=== PATIENT | female | born 1940 | race Caucasian/White ===

== ENCOUNTER 2017-02-14 08:14 | Inpatient (IN) | payer MEDICARE ==
[2017-02-14] MEDS ORDERED: Diazepam TAB(*) 5 MG ONE (09:16)
[2017-02-14] MEDS ORDERED: methylPREDNISolone 125 MG* 2 ML VIAL ONE (09:43)
[2017-02-14] MEDS ORDERED: diPHENhydraMINE IV* 50 MG/ML 1 ml VIAL (BENADRYL) ONE (09:43)
[2017-02-14] MEDS ORDERED: Midazolam* 1 MG/ML 10 ML VIAL (10 MG) ONE (10:07)
[2017-02-14] MEDS ORDERED: VERAPAMIL 2.5 MG/ML 4 ML VIAL ONE (10:07)
[2017-02-14] MEDS ORDERED: fentaNYL* 50 MCG/ML 2 ML VIAL (100 MCG VIAL) ONE ×2 (10:07→11:05)
[2017-02-14] MEDS ORDERED: Heparin 2 UNITS/ML IVPREMIX* 3,000 ML IV ONE (10:08)
[2017-02-14] MEDS ORDERED: Heparin(*) 1000 UNIT/ML 10 ML VIAL CATH LAB IV ONE (10:08)
[2017-02-14] MEDS ORDERED: Iodixanol* (CONTRAST) 320 MG/ML 100 ML SDV ONE ×2 (10:08→11:49)
[2017-02-14] MEDS ORDERED: Lidocaine 1% INJ* 10 MG/ML 30 ML SDV ONE (10:08)
[2017-02-14] MEDS ORDERED: nitroGLYCERIN DRIP* 25,000 MCG/250 ML BTL ONE (10:08)
[2017-02-14] MEDS ORDERED: Adenosine* 3 MG/ML VIAL ONE (11:13)
[2017-02-14] MEDS ORDERED: Aspirin Low Dose CHEW TAB* 81 MG ONE (11:39)
[2017-02-14] MEDS ORDERED: Ticagrelor* 90 MG TAB PO ONE ×2 (11:49→11:50)
[2017-02-14] MEDS ORDERED: Nitroglycerin TAB 0.4 MG* 0.4 MG TAB SL PRN ×2 (15:58→16:03)
[2017-02-14] MEDS ORDERED: NS 0.9% 1000 ML* 1,000 ML IV SCH (16:00)
[2017-02-14] MEDS ORDERED: Aspirin EC Low Dose* 81 MG TAB.EC PO SCH (18:00)
[2017-02-14] MEDS ORDERED: Carvedilol TAB* 6.25 MG PO SCH (18:00)
[2017-02-14] MEDS ORDERED: Atorvastatin* 20 MG TAB PO SCH (18:00)
[2017-02-14] MEDS ORDERED: ROSUVASTATIN 10 MG PO SCH (20:12)
[2017-02-14] MEDS: Ticagrelor* 90 MG TAB PO SCH (20:52)
[2017-02-14] MEDS: Diltiazem CD CAP* 120 MG PO SCH (20:52)
[2017-02-14] MEDS ORDERED: INSULIN ASPART 100 UNIT/ML SUBCUT SCH (23:00)
[2017-02-14] MEDS ORDERED: [UNRECOGNIZED DRUG - OTHER] SUBCUT SCH (23:00)
[2017-02-15 05:50] LABS: BUN/Creatinine Ratio 23.6 (8-20); Calcium 8.2 mg/dL (8.6-10.3); EGFR African American 101.8 (>60); EGFR Non-African American 79.2 (>60); Potassium 3.5 mmol/L (3.5-5.0)
[2017-02-15] MEDS ORDERED: Levothyroxine TAB* 137 MCG TAB PO SCH (06:00)
[2017-02-15] MEDS ORDERED: Omeprazole CAP* 20 MG PO SCH (07:30)
[2017-02-15] MEDS: Ticagrelor* 90 MG TAB PO SCH (08:59)
[2017-02-15] MEDS ORDERED: DULoxetine DR CAP* 30 MG CAP.DR PO SCH (09:00)
[2017-02-15] MEDS: Diltiazem CD CAP* 120 MG PO SCH (09:00)
[2017-02-15] MEDS ORDERED: Carvedilol TAB* 6.25 MG PO SCH (09:00)
[2017-02-15] MEDS ORDERED: Valsartan TAB* 40 MG PO SCH (09:00)
[2017-02-15] MEDS ORDERED: Aspirin Low Dose CHEW TAB* 81 MG PO SCH (09:00)
[2017-02-15 11:03] VITALS: BP 156/87
--- NOTE | 2017-02-15 21:39 | DS ---
CC: Dr. Brock; Dr. Canales * DISCHARGE SUMMARY: DATE OF ADMISSION: 02/14/17 DATE OF DISCHARGE: 02/15/17 PRIMARY CARE PHYSICIAN: Dr. Brock. SENIOR J2EE DEVELOPER: Dr. Canales. DISCHARGE DIAGNOSES: 1. Angina pectoris. 2. Morbid obesity. 3. Diabetes type 2. 4. Diastolic chronic congestive heart failure. 5. Hypertension, uncontrolled. 6. Numerous medication allergies including contrast and nickel. 7. Obstructive sleep apnea. CONDITION ON DISCHARGE: Stable. DISCHARGE MEDICATIONS: Unchanged: 1. Cardizem CD 120 mg b.i.d. 2. Crestor 20 mg one-half tablet daily. 3. Diovan 40 mg daily. 4. Protonix 40 mg daily. 5. Carvedilol 6.25 two tabs q.a.m., one q.p.m. 6. Cymbalta 30 mg daily. 7. Synthroid 137 mcg daily. 8. Aspirin 81 mg daily. 9. Insulin pump as before. 10. Nitroglycerin 0.4 sublingual p.r.n. 11. Vitamin D3 New medications to discontinue: Isosorbide, Brilinta 90 mg b.i.d. if her insurance coverage is affordable, otherwise Plavix 75 mg daily. FOLLOWUP: Follow up with Ms. Aimee Dykes at the [facility] office wound check at 1345 hours. ACTIVITY: To avoid right hand use for 2 days. WOUND CARE: Shower only for 3 days. DIET: As before. HISTORY: See the outpatient H and P. DIAGNOSTIC STUDIES/LAB DATA: Electrolytes on 02/10 unremarkable except for random blood sugar of 157. Creatinine 0.87. CBC normal. EKG, left bundle- branch block. HOSPITAL COURSE: She underwent an outpatient diagnostic catheterization for limiting exertional chest discomfort in spite of dual-antianginal therapy, with stress imaging which showed a fixed anterolateral defect, which was described as intermediate, but is actually a low-risk finding. She has had previous coronary artery stenting. Two years ago, she had insignificant RCA restenosis. Comorbidities include morbid obesity and diastolic heart failure. She underwent outpatient catheterization via the right radial approach, was found to have moderate stenosis in the mid RCA which had an abnormal FFR of 0.78 , was therefore stented with a 3 x 16 drug-eluting stent post dilated to 3.25 mm. She also had FFR evaluation of the mid circumflex stenosis which was 0.78, the circumflex is retroflexed at greater than 90 degrees. Attempts at advancing a stent into the proximal circumflex resulted in the guide disengaging twice. Because of the stable coronary artery disease scenario with limiting symptoms on dual-antianginal therapy, revascularization of the RCA, the technical difficulty in stenting the mid circumflex, I did not pursue in revascularizing the circumflex. If she persists with limiting anginal symptoms , she is a candidate for repeat procedure to stent the mid circumflex. In that case I would anticipate using the femoral approach with a Voda left 4 guide for more support and a stiffer wire to negotiate the sharp 90+ degree angle at the proximal circumflex. I stopped her Imdur. She had some shortness of breath with Brilinta initially, probably from the medication side effect, but this is not quite certain. Effient is prohibitively expensive for her, she therefore prefers to go home on Brilinta with the plan of switching her to Plavix if she persists with dyspnea. Postprocedure EKG and BMP were unchanged, there were no complications at the radial access site. On the day of discharge, she is ambulatory and stable. She has persisting systolic hypertension in the 150 to 170 range, which will be addressed as an outpatient. [id number]/[facility] #: [id number] ZULEMA
--- NOTE | 2017-02-16 23:10 | CATH ---
CC: Dr. Brock; Dr. Canales * STENT REPORT: DATE OF PROCEDURE: 02/14/17 - ROOM #ICU-09 PRIMARY CARE PHYSICIAN: Dr. Brock. MEN'S DESIGNER: Dr. Canales. PROCEDURES: Right radial artery access with ultrasound guidance, bilateral selective coronary cineangiography. HISTORY: A 76-year-old morbidly obese woman with prior right coronary artery remote stenting. Catheterization 2 years prior showed no significant obstructive disease. She now is re-referred for catheterization because of progressive limiting exertional angina with occasional rest discomfort, stress imaging with fixed anterolateral defect read as intermediate risk; although by my review, it is low risk, and persisting limiting symptoms in spite of 3 antianginal agents. PROCEDURE ACCESS: Right radial artery sheath 6F Slender with ultrasound guidance. Radial access was technically difficult because of angulation in the right subclavian area resulting in poor guide support for the left coronary artery. MEDICATIONS: 1. Subcu lidocaine. 2. IV Versed. 3. IV fentanyl. 4. Nitroglycerin 200 mcg IA. 5. Radial cocktail with heparin. 6. 3000 units heparin, nitroglycerin 300 mg, verapamil 3 mg, additional heparin 2000 units, 3000 units, 2000 units. 7. IC adenosine bolus for FFR evaluation of RCA and circumflex. HEMODYNAMICS: Initial BP 156/69. FFR RCA utilizing a COMET 0.014 pressure wire and adenosine 100 mcg IC yielded FFR of 0.78. A Synergy 3.0 x 16 mm drug-eluting stent was then deployed in the mid RCA with 11 atmospheres 10 seconds and postdilated with a 3.25 x 15 noncompliant balloon 18 atmospheres 13 seconds. A 6F VL3.5 guide was then utilized with a COMET wire to measure FFR within the circumflex, which has unfavorable anatomy because of retroflexed 100 degree angulation. FFR with 100 mcg of IC adenosine mid circumflex 0.80, 0.78. A 3.5 x 16 mm drug-eluting stent was then advanced toward the mid circumflex, but would not easily traverse the greater than 90 degree angle at the proximal circumflex resulting in disengagement of the guide x2. Because of poor guide support, difficulty with catheter torque control because of subclavian tortuosity, already successful stenting of the RCA and stable coronary artery syndrome without ACS, revascularization attempt of the circumflex was stopped. She will be followed clinically. If she has persisting limiting angina after stenting of the RCA, she will be brought back for a circumflex revascularization. In that case, I anticipate utilizing the femoral approach for greater catheter torque ability, and a VL4 for greater guide support as well as a stiffer wire to traverse the proximal circumflex steep angulation. ANGIOGRAPHY: Injection at the right subclavian shows tortuosity, resulted in poor catheter torque control. Left main: The left main is large, has a distal smooth 40% stenosis. LAD: The LAD is large, extends past the apex, it supplies a moderate diagonal, the LAD has luminal irregularity, but no significant stenosis. Circumflex: The circumflex is large, not dominant, has a very proximal greater than 90-degree retroflexed angulation after which, there is a small marginal followed by an eccentric 60% stenosis, which was evaluated with FFR. The circumflex ends with 2 posterolateral branches. RCA: The RCA is dominant, moderate, has previously placed stents proximally, beyond the stents, there is a 50% to 60% stenosis, which was evaluated with FFR and subsequently stented. Distal RCA has luminal irregularity, a very small PDA and a small posterolateral. After stent deployment RCA, postdilatation with an NC balloon, there is no significant residual stenosis, MAURO-3 flow, no dissection. The circumflex was not stented because of above reasons. CONCLUSION: 1. Two-vessel disease with significant circumflex and mid RCA stenosis by FFR, successful drug-eluting stent placement RCA, the circumflex was not stented, see above. If she requires future circumflex intervention, plan would be femoral approach with a longer Voda guide and a stiffer wire for more support. 2. Successful right radial artery access. [id number]/[facility] #: [id number] [facility] HOSPITALBlanca
== END 2017-02-15 12:00 | disposition home or self-care (01) | DRG 247 ==
LOC: CHICATH 08:14 → ICU 13:19
PROVIDERS: ADMIT Internal Medicine Cardiovascular Disease; ATTEND Internal Medicine Cardiovascular Disease
PROC: B2111ZZ Fluoroscopy of Multiple Coronary Arteries using Low Osmolar Contrast (ICD-10-PCS; 2017-02-14)
PROC: 027034Z Dilation of Coronary Artery, One Artery with Drug-eluting Intraluminal Device, Percutaneous Approach (ICD-10-PCS; principal; 2017-02-14 09:30)
DX: I25.119 Atherosclerotic heart disease of native coronary artery with unspecified angina pectoris (principal); E11.21 Type 2 diabetes mellitus with diabetic nephropathy; I11.0 Hypertensive heart disease with heart failure; E66.01 Morbid (severe) obesity due to excess calories; M48.02 Spinal stenosis, cervical region; I50.32 Chronic diastolic (congestive) heart failure; Z68.41 Body mass index [BMI] 40.0-44.9, adult; I44.7 Left bundle-branch block, unspecified; K21.9 Gastro-esophageal reflux disease without esophagitis; M47.9 Spondylosis, unspecified; G47.30 Sleep apnea, unspecified; Z96.41 Presence of insulin pump (external) (internal); Z96.659 Presence of unspecified artificial knee joint; F41.9 Anxiety disorder, unspecified; E78.00 Pure hypercholesterolemia, unspecified; E78.2 Mixed hyperlipidemia; E03.9 Hypothyroidism, unspecified; M85.88 Other specified disorders of bone density and structure, other site; R94.39 Abnormal result of other cardiovascular function study; R06.02 Shortness of breath; K90.0 Celiac disease; K44.9 Diaphragmatic hernia without obstruction or gangrene; F32.9 Major depressive disorder, single episode, unspecified; Z90.49 Acquired absence of other specified parts of digestive tract; Z90.710 Acquired absence of both cervix and uterus; Z83.3 Family history of diabetes mellitus; Z82.3 Family history of stroke; Z82.61 Family history of arthritis; Z80.8 Family history of malignant neoplasm of other organs or systems; Z82.49 Family history of ischemic heart disease and other diseases of the circulatory system; Z87.891 Personal history of nicotine dependence; Z79.4 Long term (current) use of insulin; Z79.82 Long term (current) use of aspirin; Z79.02 Long term (current) use of antithrombotics/antiplatelets; Z88.1 Allergy status to other antibiotic agents; Z88.8 Allergy status to other drugs, medicaments and biological substances; Z91.041 Radiographic dye allergy status; Z91.048 Other nonmedicinal substance allergy status; Z95.5 Presence of coronary angioplasty implant and graft
CPT/HCPCS: 36415; 80048; 82947; 87641; 93005; 93454; 94760; 99156; 99157; A9270-GY; C1725; C1876; C1887; C9600-RC; J0153; J1200; J1644; J2250; J2930; J3010

== ENCOUNTER 2017-06-26 16:17 | Emergency (ER) | payer MEDICARE ==
--- OUTSIDE RECORDS SUMMARY | 2017-06-26 16:35 | XMS REPORT ---
:1940 External Reference #:[id number] Author Organization [facility] Address [address] [address] Phone [phone] Care Team Providers Name Role Phone Clarissa Brock MD Primary Care Physician Unavailable Payers Type Date Identification Numbers Payment Provider Subscriber Medicare Primary Effective: Policy Number: Medicare Chan Chandler 2008 [id number] PayID: [id number] [address] [place] [address] Medigap Part B Effective: Policy Number: [facility] Chan Martinez 2014 [id number] [facility] Ramesh PayID: [id number] [address] [place] [address] Medigap Part B Expires: 2014 Policy Number: [employer] Chan Chandler [id number] PayID: [id number] [address] [address] [place] [address] Advance Directives Type Date Description Status Comment Other Directive 03/12/2015 Health Care Proxy Current and Verified Other Directive 10/10/2013 Health Care Proxy Current and Verified Problems Date Description Provider Status Onset: 08/19/2011 Benign essential hypertension Clarissa Brock M.D. Active Onset: 08/19/2011 Coronary atherosclerosis Clarissa Brock M.D. Active Onset: 08/19/2011 Celiac disease Clarissa Brock M.D. Active Onset: 08/19/2011 Hypothyroidism Clarissa Brock M.D. Active Onset: 08/26/2011 Mixed hyperlipidemia Adolfo Goff M.D. Onset: 08/26/2011 Patient post percutaneous Adolfo Goff transluminal coronary angioplasty M.D. Onset: 01/20/2012 Morbid obesity Gonzalo Canales M.D. Active Onset: 01/20/2012 Electrocardiogram abnormal Gonzalo Canales M.D. Active Onset: 01/20/2012 Left bundle branch block Gonzalo Canales M.D. Active Onset: 07/09/2013 Pure hypercholesterolemia SIVA Jones Active Onset: 05/22/2014 Degenerative cervical spinal Clarissa Brock M.D. Active stenosis Note: worse at C5/C6 Onset: 05/22/2014 Chronic anxiety Clarissa Brock M.D. Active Onset: 05/22/2014 Former heavy tobacco smoker Clarissa Brock M.D. Active Note: quit 2009 52 pk yr Onset: 05/22/2014 Type 1 diabetes mellitus Clarissa Brock M.D. Active Onset: 05/22/2014 Sleep apnea Clarissa Brock M.D. Active Onset: 05/23/2011 Osteopenia Clarissa Brock M.D. Active Note: L spine Onset: 04/23/2015 Type 2 diabetes mellitus Clarissa Brock M.D. Active Note: insulin pump Onset: Microalbuminuric diabetic nephropathy Active Onset: 10/09/2015 Arthroplasty of knee Tracy Figueroa M.D. Active Onset: 02/01/2016 Cervical spondylosis without myelopathy Spencer Albarado M.D. Active Onset: 03/22/2016 Gastroesophageal reflux disease Clarissa Brock M.D. Active Family History Date Family Member(s) Problem(s) Comments General non contributory General MGF throat cancer Father due to Stroke () - complications. hx diabetes, htn. Mother due to Diabetes () - hx arthritis and diabetes. Siblings 3 Siblings 3 living sisters all w/DM ; 4th sister w/heart issues Social History Type Date Description Comments Marital Status for 30+ years (2011) Lives With Alone Occupation Retired Occupation Television Operator Cigarette Use Pack Years - 52 Cigarette Use quit in 2011 ETOH Use Denies alcohol use Smoking Patient is a former smoker quit in 2008 started again but quit in June 2011. Smoker x 50 years about 3/4-1 ppd. Recreational Drug Use Denies Drug Use Daily Caffeine Consumes on average 2 cups of regular coffee per day Daily Caffeine consumes chocolate occasionally Exercise Type/Frequency Exercises rarely unable to due to health. General Hx Text Had 6 children, 1 daughter of cancer. lived in [place] for 3 years. relocated back to [place] 5.12. Allergies, Adverse Reactions, Alerts Date Description Reaction Status Severity Comments 08/25/2011 Cephalexin rash active 08/25/2011 Iodine skin irritation active 08/25/2011 contrast dye tongue swelling active 04/09/2012 Adhesive active 04/09/2012 Nickel active 05/16/2012 Lipitor cramps on 80mg . tolerates 20 mg active 08/18/2011 NKDA inactive Medications Medication Date Status Form Strength Qnty SIG Indications Ordering Provider Eli 05/26 Active Tablets 40mg 90tab 1 by mouth s every day F. (take with 80 Mauser, mg tab) Allison Brennanvan 05/26 Active Tablets 80mg 90tab 1 by mouth s every day F. (take with 40 Mauser, mg tab) MSamanta Nitro-Dur 04/26 Active Patches 0.1mg/HR 30uni apply 1 patch Millie S. 24HR ts daily for 12 Foster, hours and N.P. remove at bedtime. Plavix 04/11 Active Tablets 75mg 90tab 300 mg day 1 s and then 1 tab F. (75 mg) by Parker, mouth every M.D. day Cardizem CD 01/16 Active Caps ER 120mg 180ca 1 by mouth 24HR ps twice a day FMili Canales M.D. Compression 11/15 Active Misc 1Pair 30-40 mm hg Clarissa Stockings as needed Allison Brock Rosuvastatin 03/24 Active Tablets 20mg 45tab take 03/07Gonzalo Calcium s tablet by F. mouth every Mauser, day M.DMili Blood Pressure 06/11 Active Misc 1unit dispense 1 as I10 Gonzalo Monitor Auto s directed FMili Inflate Allison Canales Fluocinolone 11/27 Active Solution 0.01% 60cc apply topical Joellen Acetonide to scalp, as Varn, needed (pt is N.P. not using) Tramadol HCL 11/24 Active Tablets 50mg 90tab 1-2 by mouth M19.90 Clarissa /2015 s every 8 hours Vinod, a day as M.D. needed for pain Pantoprazole 11/20 Active Tablets 40mg 60tab 1 By Mouth K22.[address] ya Daily Allison Brock Carvedilol 09/11 Active Tablets 6.25mg 270ta 2 tab by mouth Gonzalo bs each in the F. morning and 2 Mauser, by mouth each M.D. evening Cymbalta 07/15 Active Caps 30mg 90cap 1 by mouth Part s every morning Allison Brock Levothyroxine 01/27 Active Tablets 137mcg 1 by mouth Clarissa Sodium every day Allison Brock Aspirin Ec Active Tablets 81mg 90tab 1 tablet Unknown Lo-Dose DR ya daily. Iron Active Tablets 325(65Fe) 180ta 1 po bid Unknown mg bs Novolog Active Solution 100Unit/M 1bott via insulin Unknown L le pump True Test Active Unknown Ativan Active Tablets 0.5mg 30tab 1 by mouth Clarissa s every day as Vinod needed for M.D. severe anxiety attack Nitrostat Active Tablets 0.4mg 25tab one sl q5min Gonzalo Sub s up to 3 doses F. as needed Allison Canales Insulin Pump Active Unknown Vitamin D3 Active Capsules 2000Unit 1 by mouth Unknown 0000 every day Rosuvastatin 09/29 Hx 20 90uni Take /2 Gonazlo Calcium /2015 ts Tablet By F. 20Mgtablets - Mouth Every Mawesly, 03/24 Day M.DMili /2016 Isosorbide 06/11 Hx Tablets 30mg 90tab 1 by mouth R07.9 Gonzalo Mononitrate ER /2015 ER 24HR s every day F. - Parker, 02/06 M.D. Diovan 05/26 Hx Tablets 40mg 90tab 1 by mouth s twice every F. - day Mauser, 05/25 M.D. Cardizem CD 05/26 Hx Caps ER 240mg 90cap 1 by mouth 24HR s every day F. - Mauser, 01/16 M.D. Clotrimazole/Be 04/30 Hx Cream 1-0.05% 90gm apply to B35.9 Clarissa tamethasone affected area Vinod Dipropionate - on the M.D. 12/14 affected areas /2016 twice a day x 10 days, pt not using Tramadol HCL ER 12/08 Hx Caps ER 100mg 60cap 1 tab twice a Clarissa 24HR s day Vinod, - M.D. 01/19 Clobetasol 11/24 Hx Shampoo 0.05% 118un never used Clarissa Propionate its insurance Vinod, - would not pay M.D. 12/14 Doxycycline 11/20 Hx Capsules 50mg 20cap 1 tab twice a Clarissa Hyclate s day x 10days Vinod, - M.D. 03/19 Clobetasol 11/20 Hx Foam 0.05% 1unit apply to scalp 696.8 Clarissa Propionate s and shampoo Vinod, Emulsion - daily x 7 days M.D. 11/24 Tramadol HCL ER 11/20 Hx Tablets 100mg 60tab 1 tab bid as 715.98 Clarissa ER 24HR s needed for Vinod, - pain M.D. 11/24 Nitro-Dur 08/20 Hx Patches 0.2mg/HR 30uni 1 patch every R07.9 Gonzalo 24HR ts day on in the F. - in the Mauser, 06/11 morning, off M.D. at night Tramadol HCL 08/13 Hx Tablets 50mg 90tab 1 by mouth 715.18 Clarissa s every 8 hrs a Vinod, - day as needed M.D. 11/24 for severe /2014 pain Cardizem CD 07/29 Hx Caps ER 360mg 90cap 1 by mouth 24HR s every day F. - Mauser, 05/26 M.D. Cymbalta 07/[address] 20mg 30cap 1 by mouth 300.00 Part s every day Vinod, - M.D. 07/15 Zofran 04/09 Hx Tablets 4mg 20tab 1 every 6 s hours as Vinod, - needed nausea M.D. 04/08 Requip 04/09 Hx Tablets 0.25mg 30tab once at at s bedtime can Vinod, - increase to 2 M.D. 04/04 tab if needed Lasix 04/03 Hx Tablets 20mg 5tabs 1 tab every other day X 1 Vinod, - week M.D. 04/09 Percocet 02/19 Hx Tablets 5-325mg 60tab 1-2 tabs by s mouth tid as Henry, - needed pain M.D. 04/06 Coumadin 02/19 Hx Tablets 2.5mg 90tab take 1-3 as s directed at Henry, - 5pm daily d'c M.D. 03/2803/28/14 hospital recommedation. Colace 02/19 Hx Capsules 100mg 40cap 1 tab by mouth s twice a day as Henry, - needed M.D. 04/06 constipation Oxycodone-Aceta 12/18 Hx Tablets 5-325mg 120ta 1 tab every 715.96 Clarissa bs 6-8 hour as Vinod, - needed for M.D. 04/10 severe pain Nitroglycerin 11/07 Hx Solution 0.4mg/Spr 1unit 1 spray under ay s tongue as F. - needed chest Mauser, 09/30 pain M.D. Flexeril 10/11 Hx Tablets 5mg 15tab 1 tab by mouth s three times a Henry, - day as needed M.D. 01/26 muscle spasm /2013 Metronidazole 07/18 Hx Gel 0.75% 1unit apply s intravaginally Vinod, - once a day x 7 M.D. 09/17 days Bupropion HCL 07/17 Hx Tablets 150mg 90tab 1 by mouth Clarissa ER (XL) ER 24HR s every other Vinod, - day X 2 wks M.D. 06/26 then 1 tab /2014 every 2 days X 2 wks then 1 tab every 3 days then 1 tab every 4 days X 1 wk Oxycodone-Aceta 05/28 Hx Tablets 2.5-325mg 120ta 1-2 tab twice 715.09 Clarissa minophen bs a day as Vinod, - needed for M.D. 12/18 pain Duloxetine HCL 05/[address] 30mg 30cap 1 by mouth 300.00 Clarissa Part s every day Tasia Brock MMiliDMili 07/08 Crestor 05/20 Hx Tablets 20mg 90tab 1/2 by mouth s every day Miguel A Canales 09/30 M.D. Mupirocin 02/21 Hx Ointment 2% 22gm apply on 682.9 affected area Vinod, twice daily M.D. for 10 days Sulfamethoxazol 11/19 Hx Tablets 800-160mg 20tab 1 po bid 703.0 Clarissa e/Trimethoprim s AARON Brock MSamanta 02/21 Cardizem CD 10/09 Hx Caps ER 240mg 90cap 1 by mouth Gonzalo 24HR s every day Miguel A Canales 07/29 M.D. Ergocalciferol 09/12 Hx Capsules [id number] 8caps 1 tab by mouth Clarissa every week Tasia Brock MMiliDMili 11/19 Oxycodone/Aceta 08/07 Hx Tablets 2.5-325mg 120ta 1-2 tab twice 715.09 Clarissa minophen bs a day as Vinod, - needed for M.D. 05/28 pain Bupropion HCL 08/07 Hx Tablets 150mg 90tab 1 po qd 300.00 Clarissa XL ER 24HR s Tasia Brock M.D. 05/28 Crestor 07/20 Hx Tablets 20mg 90tab 1 po qd s Miguel A Canales, 05/20 M.D. Nitroglycerin 07/20 Hx Solution 0.4mg/Spr 1unit 1 spray under ay s tongue prn F. - chest pain Parker, 11/07 M.D. Atorvastatin 02/12 Hx Tablets 20mg 30tab 1 po qd Gonzalo s Miguel A Canales, 07/20 M.D. Cardizem CD 01/30 Hx Caps ER 120mg 180ca 2 po qd 24HR ps Miguel A Canales, 10/09.D. Atorvastatin 01/19 Hx Tablets 10mg 100ta 1 po qd bs Miguel A Canales, 02/12 M.D. Dapsone 01/09 Hx Tablets 100mg 90tab 2 po weekly s prn - 07/20 Oxycodone/Aceta 01/09 Hx Tablets 2.5-325mg 90tab 1 tab every 8 715.09 Clarissa min s hrs as needed Tasia Brock M.D. 08/07 Alprazolam 10/09 Hx Tablets 0.25mg 10tab 1 tab by mouth 300.00 Clarissa /2012 s as needed Tasia Brock M.D. 07/17 Ergocalciferol 09/11 Hx Capsules [id number] 6caps 1 tab by mouth 268.9 Clarissa /2012 every week Tasia Brock M.D. 01/09 Calcium 600 09/11 Hx Tablets 600mg 60tab 1 tab by mouth 268.9 Clarissa s twice a day Tasia Brock M.DMili 09/04 Imdur 08/24 Hx Tablets 30mg 30tab 1 po qd ER 24HR s Miguel A Canales, 09/07 M.D. Prednisone 08/24 Hx Tablets 20mg 4tabs 2 tablets the night prior to F. - cardiac Parker, 06/29 catheterizatio M.D. n then in am Cozaar Hx Tablets 100mg 90tab 1 po qd hold Gonzalo /0000 s as of 01.30.12 Miguel A Canales, 04/09 M.DMili Bupropion HCL 00 Hx Tablets 150mg 90tab 1 po qd Clarissa XL /0000 ER 24HR s Tasia Brock M.D. 09/27 Carvedilol Hx Tablets 25mg 90tab 1/2 tablet by Jaz / s mouth twice a [place], - M.DMili 09/11 Atorvastatin Hx Tablets 80mg 30tab 1 po qd in the Clarissa Calcium /0000 s evening Tasia Brock M.D. 01/19 Tramadol HCL Hx Tablets 50mg 100ta 1 po tid prn Unknown /0000 bs - 09/01 Alprazolam Hx Tablets 0.25mg 20tab 1 tab bid as Unknown /0000 s needed - 10/24 Levothyroxine Hx Tablets 125mcg 90tab 1 po qd Clarissa Sodium /0000 s Tasia Brock M.D. 01/27 Potassium Hx Tablets 8Meq 30tab 3 po weekly Unknown Chloride CR /0000 ER s prn with lasix - 05/28 Dapsone Hx Tablets 100mg 90tab 2 po weekly Unknown /0000 s prn - 01/09 Coq10 Hx Capsules 50mg 90cap 1 po qd Unknown /0000 s - 10/24 Nitroglycerin Hx 0.4mg 25uni 1 po SL onset Gonzalo /0000 ts of chest pain Miguel A Canales, 07/20 M.DMili D3 00/00 Hx Capsules 1000Unit 1 po qd Unknown /0000 - 01/09 Furosemide Hx Tablets 20mg 30tab 1 po three Unknown /0000 s times a week - prn 05/28 Vitamin D3 00/00 Hx Capsules 1000Unit 30cap 1 po qd Unknown /0000 s - 09/27 Vitamin D3 High 00/ Hx Capsules 1000Unit 30cap 1 po qd Other Potency /0000 s Ordering - Provider 12/14 Clonidine HCL Hx Tablets 0.1mg 30tab 1 by mouth Unknown /0000 s twice a day - 11/06 Lidocaine HCL 00 Hx Gel 2% as needed on Unknown /[address] Tasia Allred 01/26 for break Pantoprazole Hx Tablets 40mg 60tab 1 PO bid Clarissa Sodium /0000 Tasia Cook M.D. 11/20 Brilinta Hx Tablets 90mg 60tab 1 tab by mouth Gonzalo /0000 s twice a day Miguel A Canales 04/13 M.D. /2017 Medications Administered in Office Medication Date Status Form Strength Qnty SIG Indications Ordering Provider Triamcinolone 05/14/ Administered Injection Fouzia (Kenalog) 2015 Liptak, RPA-C Synvisc Or 11/29/ Administered Injection Tracy Synvisc-One 2013 Henry, Injection 1 MG M.D. Hyaluron Or 11/29/ Administered Injection Tracy Derivative,Ortho 2013 Henry visc,For M.D. Intra-Articular Inj Per Dose Hyaluron Or 11/22/ Administered Injection Tracy Derivative,Ortho 2013 Henry visc,For M.D. Intra-Articular Inj Per Dose Hyaluron Or 11/15/ Administered Injection Tracy Derivative,Ortho 2013 vlad Figueroa,For M.D. Intra-Articular Inj Per Dose Inj, 10/23/ Administered Injection Frankie D. Regadenoson, 0.1 2013 Brand, MG M.D. Technetium TC 10/23/ Administered Injection Frankie D. 99M Tetrofosmin, 2013 Brand, Per Unit Dose Up M.D. To 40 Millicuries Immunizations CPT Code Status Date Vaccine Lot # [id number] Given 12/22/2015 Influenza Virus Vaccine, Quadrivalent, Split Virus, Im Use [id number] Given 12/19/2014 Flu Vaccine NOS Q2037 Given 08/18/2014 Fluvirin Im 3Yrs And Older 22567 Given 05/22/2014 Pneumococcal Conjugate Vaccine 13 Valent For [id number] Intramuscular Use 94432 Given 12/05/2013 Influenza Virus 3Yrs & Over Q2037 Given 12/01/2013 Fluvirin Im 3Yrs And Older 91219 Given 04/09/2012 Zoster (Zostavax) [id number] 73375 Given 01/10/2012 Pneumonia Vaccine 89783 Given 01/10/2012 Pneumonia Vaccine 14722 Given 01/10/2012 Pneumonia Vaccine [id number] Vital Signs Date Vital Result Comment 06/02/2017 Height 64 inches 5'4" Weight 251.00 lb Heart Rate 58 /min BP Systolic Sitting 122 mmHg BP Diastolic Sitting 64 mmHg Respiratory Rate 16 /min Pain Level 0 BMI (Body Mass Index) 43.1 kg/m2 04/25/2017 Height 64 inches 5'4" Weight 251.00 lb without shoes Heart Rate 70 /min BP Systolic Sitting 120 mmHg Lue lg cuff BP Diastolic Sitting 54 mmHg Lue lg cuff BP Systolic Standing 130 mmHg Lue lg cuff BP Diastolic Standing 60 mmHg Lue lg cuff Respiratory Rate 17 /min BMI (Body Mass Index) 43.1 kg/m2 Ejection Fraction 60-65% date 12/20/2016 ECHO 04/11/2017 Height 64 inches 5'4" Weight 251.00 lb with shoes Heart Rate 60 /min BP Systolic 158 mmHg L/Arrm Reg Cuff BP Diastolic 74 mmHg L/Arrm Reg Cuff BP Systolic Sitting 144 mmHg la repeat sitting BP Diastolic Sitting 88 mmHg la repeat sitting BMI (Body Mass Index) 43.1 kg/m2 Ejection Fraction 60-65% Echocardiogram 12/20/2016 02/23/2017 Height 64 inches 5'4" Weight 254.00 lb Heart Rate 64 /min BP Systolic Sitting 128 mmHg Lue large cuff BP Diastolic Sitting 62 mmHg Lue large cuff BP Systolic Standing 128 mmHg Lue BP Diastolic Standing 62 mmHg Lue Respiratory Rate 20 /min BMI (Body Mass Index) 43.6 kg/m2 Ejection Fraction 60-65% 12/20/16 02/07/2017 Height 64 inches 5'4" Weight 258.00 lb Heart Rate 72 /min BP Systolic Sitting 118 mmHg Lue large cuff BP Diastolic Sitting 68 mmHg Lue large cuff BP Systolic Standing 118 mmHg Lue BP Diastolic Standing 64 mmHg Lue BP Systolic Recheck 140 mmHg Lue home BP small cuff BP Diastolic Recheck 61 mmHg Lue home BP small cuff Respiratory Rate 18 /min BMI (Body Mass Index) 44.3 kg/m2 01/23/2017 Height 64 inches 5'4" Heart Rate 72 /min apical BP Systolic 148 mmHg Ra, large s/p conversation BP Diastolic 68 mmHg Ra, large s/p conversation BP Systolic Sitting 138 mmHg LA, large BP Diastolic Sitting 60 mmHg LA, large BP Systolic Lying Down 138 mmHg LA< large, Lying BP Diastolic Lying Down 62 mmHg LA< large, Lying 12/23/2016 Height 64 inches 5'4" Weight 258.00 lb w/ shoes Heart Rate 58 /min reg BP Systolic Sitting 126 mmHg Lue, lg cuff BP Diastolic Sitting 62 mmHg Lue, lg cuff Respiratory Rate 16 /min BMI (Body Mass Index) 44.3 kg/m2 Ejection Fraction 60-65% as of 12/20/16 echo 12/15/2016 Height 64 inches 5'4" Weight 255.00 lb with shoes Heart Rate 50 /min BP Systolic 157 mmHg LA home cuff BP Diastolic 67 mmHg LA home cuff BP Systolic Sitting 136 mmHg LA lrg office cuff BP Diastolic Sitting 58 mmHg LA lrg office cuff BMI (Body Mass Index) 43.8 kg/m2 Ejection Fraction 60%-65% echo 07/24/14 11/21/2016 Height 64 inches 5'4" Weight 256.50 lb Heart Rate 76 /min BP Systolic Sitting 148 mmHg BP Diastolic Sitting 60 mmHg BP Systolic Standing 136 mmHg repeat la sitting BP Diastolic Standing 82 mmHg repeat la sitting O2 % BldC Oximetry 98 % BMI (Body Mass Index) 44.0 kg/m2 08/10/2016 Height 64 inches 5'4" Weight 252.50 lb with shoes Heart Rate 60 /min BP Systolic Sitting 132 mmHg LA lrg cuff BP Diastolic Sitting 66 mmHg LA lrg cuff BMI (Body Mass Index) 43.3 kg/m2 Ejection Fraction 60% - 65% echo 07/24/14 07/11/2016 Height 64 inches 5'4" Weight 252.75 lb with sneakers Heart Rate 66 /min BP Systolic Sitting 132 mmHg LA lrg cuff BP Diastolic Sitting 58 mmHg LA lrg cuff BP Systolic Standing 122 mmHg la repeat sitting BP Diastolic Standing 56 mmHg la repeat sitting BMI (Body Mass Index) 43.4 kg/m2 03/22/2016 Height 64 inches 5'4" Weight 257.38 lb Heart Rate 64 /min BP Systolic Sitting 146 mmHg BP Diastolic Sitting 72 mmHg Body Temperature 98.2 F O2 % BldC Oximetry 98 % BMI (Body Mass Index) 44.2 kg/m2 02/01/2016 Height 64 inches 5'4" Weight 255.00 lb Heart Rate 60 /min BP Systolic Sitting 138 mmHg BP Diastolic Sitting 70 mmHg Pain Level 6 BMI (Body Mass Index) 43.8 kg/m2 01/20/2016 Height 64 inches 5'4" Weight 256.12 lb Heart Rate 57 /min BP Systolic 110 mmHg BP Diastolic 56 mmHg Body Temperature 97.9 F O2 % BldC Oximetry 97 % BMI (Body Mass Index) 44.0 kg/m2 10/09/2015 Height 64 inches 5'4" Weight 254.00 lb Pain Level 0 BMI (Body Mass Index) 43.6 kg/m2 10/01/2015 Height 64 inches 5'4" Weight 254.00 lb with shoes Heart Rate 64 /min BP Systolic Sitting 114 mmHg LA lg cuff BP Diastolic Sitting 72 mmHg LA lg cuff BP Systolic Standing 120 mmHg LA lg cuff BP Diastolic Standing 70 mmHg LA lg cuff Respiratory Rate 16 /min BMI (Body Mass Index) 43.6 kg/m2 Ejection Fraction 60-65% date 07/24/14 ECHO 09/09/2015 Height 64 inches 5'4" Weight 256.25 lb with shoes Heart Rate 70 /min BP Systolic Sitting 158 mmHg LA lrg cuff BP Diastolic Sitting 64 mmHg LA lrg cuff BMI (Body Mass Index) 44.0 kg/m2 Ejection Fraction 60% - 65% echo 07/25/15 08/24/2015 Weight 249.00 lb Heart Rate 81 /min BP Systolic Sitting 150 mmHg BP Diastolic Sitting 62 mmHg Body Temperature 98.0 F O2 % BldC Oximetry 98 % 06/30/2015 Height 64 inches 5'4" Heart Rate 67 /min BP Systolic 161 mmHg left arm home cuff BP Diastolic 72 mmHg left arm home cuff BP Systolic Sitting 136 mmHg left arm office cuff BP Diastolic Sitting 66 mmHg left arm office cuff Respiratory Rate 18 /min 06/12/2015 Height 64 inches 5'4" Weight 249.00 lb Heart Rate 62 /min BP Systolic 176 mmHg pulse 62, home unit BP Diastolic 78 mmHg pulse 62, home unit BP Systolic Sitting 144 mmHg Ra lrg cuff BP Diastolic Sitting 60 mmHg Ra lrg cuff BP Systolic Standing 144 mmHg Ra lrg cuff BP Diastolic Standing 58 mmHg Ra lrg cuff Respiratory Rate 18 /min BMI (Body Mass Index) 42.7 kg/m2 Ejection Fraction 60-65% 07/24/14 05/27/2015 Height 64 inches 5'4" Weight 245.25 lb with shoes Heart Rate 60 /min BP Systolic Sitting 154 mmHg LA, large cuff BP Diastolic Sitting 70 mmHg LA, large cuff BMI (Body Mass Index) 42.1 kg/m2 Ejection Fraction 60-65% echo 07/24/14 05/21/2015 Weight 243.00 lb Heart Rate 58 /min BP Systolic Sitting 144 mmHg BP Diastolic Sitting 56 mmHg Body Temperature 99.7 F O2 % BldC Oximetry 98 % 05/15/2015 Height 64 inches 5'4" Weight 247.00 lb Pain Level 2 2-8 BMI (Body Mass Index) 42.4 kg/m2 04/30/2015 Height 64 inches 5'4" Weight 250.00 lb Heart Rate 55 /min BP Systolic Sitting 132 mmHg BP Diastolic Sitting 64 mmHg Body Temperature 98.0 F O2 % BldC Oximetry 97 % BMI (Body Mass Index) 42.9 kg/m2 04/07/2015 Height 64 inches 5'4" Weight 262.44 lb with shoes Heart Rate 64 /min BP Systolic Sitting 142 mmHg LA Lg cuff BP Diastolic Sitting 64 mmHg LA Lg cuff BP Systolic Standing 144 mmHg LA lg cuff BP Diastolic Standing 68 mmHg LA lg cuff BP Systolic Recheck 132 mmHg left arm large cuff BP Diastolic Recheck 72 mmHg left arm large cuff Respiratory Rate 16 /min BMI (Body Mass Index) 45.0 kg/m2 03/19/2015 Height 64 inches 5'4" Weight 249.00 lb Heart Rate 62 /min BP Systolic Sitting 130 mmHg BP Diastolic Sitting 80 mmHg Respiratory Rate 14 /min Body Temperature 98.3 F O2 % BldC Oximetry 97 % BMI (Body Mass Index) 42.7 kg/m2 12/03/2014 Height 64 inches 5'4" Weight 252.00 lb w/shoes Heart Rate 72 /min BP Systolic Sitting 158 mmHg LA lg cuff BP Diastolic Sitting 82 mmHg LA lg cuff BMI (Body Mass Index) 43.3 kg/m2 Ejection Fraction 60-65 echo 07/24/14 11/20/2014 Height 64 inches 5'4" Weight 250.00 lb Heart Rate 54 /min BP Systolic 134 mmHg BP Diastolic 57 mmHg Body Temperature 98.2 F BMI (Body Mass Index) 42.9 kg/m2 11/06/2014 Height 64 inches 5'4" Weight 246.75 lb w/ shoes Heart Rate 82 /min BP Systolic Sitting 152 mmHg LA, large cuff BP Diastolic Sitting 70 mmHg LA, large cuff BMI (Body Mass Index) 42.3 kg/m2 Ejection Fraction 60-65% 07/24/14 ECHO 10/14/2014 Heart Rate 58 /min BP Systolic Sitting 126 mmHg BP Diastolic Sitting 68 mmHg Respiratory Rate 20 /min O2 % BldC Oximetry 97 % 10/03/2014 Height 64 inches 5'4" Weight 247.00 lb Heart Rate 86 /min BP Systolic Sitting 130 mmHg BP Diastolic Sitting 80 mmHg BMI (Body Mass Index) 42.4 kg/m2 09/22/2014 Height 64 inches 5'4" Weight 247.00 lb w/shoes Heart Rate 54 /min BP Systolic Sitting 122 mmHg LA lg cuff BP Diastolic Sitting 68 mmHg LA lg cuff BP Systolic Standing 136 mmHg LA lg cuff BP Diastolic Standing 70 mmHg LA lg cuff Respiratory Rate 14 /min BMI (Body Mass Index) 42.4 kg/m2 Ejection Fraction 60-65 echo 07/24/14 09/11/2014 Height 64 inches 5'4" Weight 251.00 lb Heart Rate 56 /min BP Systolic Sitting 142 mmHg LA large cuff BP Diastolic Sitting 82 mmHg LA large cuff BP Systolic Lying Down 154 mmHg home BP cuff BP Diastolic Lying Down 84 mmHg home BP cuff Respiratory Rate 16 /min BMI (Body Mass Index) 43.1 kg/m2 Ejection Fraction 60-65% 07/24/14 08/20/2014 Height 64 inches 5'4" Weight 253.50 lb w/shoes Heart Rate 64 /min BP Systolic Sitting 168 mmHg LA lg cuff BP Diastolic Sitting 74 mmHg LA lg cuff Respiratory Rate 12 /min BMI (Body Mass Index) 43.5 kg/m2 Ejection Fraction 60-65 echo 07/24/14 08/18/2014 Height 64 inches 5'4" Weight 252.12 lb Heart Rate 67 /min BP Systolic Sitting 126 mmHg BP Diastolic Sitting 68 mmHg Respiratory Rate 20 /min Body Temperature 97.3 F O2 % BldC Oximetry 98 % BMI (Body Mass Index) 43.3 kg/m2 08/13/2014 Weight 252.75 lb Heart Rate 70 /min BP Systolic Sitting 120 mmHg BP Diastolic Sitting 70 mmHg O2 % BldC Oximetry 97 % 07/15/2014 Weight 249.00 lb Heart Rate 71 /min BP Systolic Sitting 126 mmHg BP Diastolic Sitting 55 mmHg Body Temperature 98.1 F 07/14/2014 Height 64.5 inches 5'4.50" Weight 247.50 lb With shoes Heart Rate 72 /min BP Systolic 158 mmHg LA large BP Diastolic 62 mmHg LA large BMI (Body Mass Index) 41.8 kg/m2 Ejection Fraction 60-65% Echo 01/20/12 07/01/2014 Weight 251.00 lb Heart Rate 72 /min BP Systolic Sitting 138 mmHg BP Diastolic Sitting 80 mmHg O2 % BldC Oximetry 96 % 06/26/2014 Weight 249.75 lb Heart Rate 63 /min BP Systolic Sitting 132 mmHg BP Diastolic Sitting 66 mmHg O2 % BldC Oximetry 98 % 05/23/2014 Weight 264.00 lb Heart Rate 68 /min BP Systolic Sitting 130 mmHg BP Diastolic Sitting 58 mmHg 05/22/2014 Weight 247.00 lb Heart Rate 63 /min BP Systolic Sitting 143 mmHg BP Diastolic Sitting 64 mmHg O2 % BldC Oximetry 98 % 04/11/2014 Heart Rate 65 /min BP Systolic Sitting 128 mmHg BP Diastolic Sitting 60 mmHg 03/31/2014 Weight 251.75 lb Heart Rate 61 /min BP Systolic Sitting 121 mmHg BP Diastolic Sitting 52 mmHg Body Temperature 97.6 F 03/28/2014 Height 65 inches 5'5" Weight 254.00 lb Heart Rate 73 /min BMI (Body Mass Index) 42.3 kg/m2 02/19/2014 Height 65 inches 5'5" Weight 254.00 lb Heart Rate 73 /min BP Systolic 167 mmHg BP Diastolic 71 mmHg BMI (Body Mass Index) 42.3 kg/m2 02/11/2014 Weight 254.00 lb Heart Rate 60 /min BP Systolic Sitting 138 mmHg BP Diastolic Sitting 82 mmHg 01/27/2014 Height 64 inches 5'4" Weight 255.00 lb Heart Rate 64 /min BP Systolic Sitting 170 mmHg LA, large BP Diastolic Sitting 68 mmHg LA, large BMI (Body Mass Index) 43.8 kg/m2 01/09/2014 Height 64 inches 5'4" Weight 254.00 lb Pain Level 5 BMI (Body Mass Index) 43.6 kg/m2 12/18/2013 Weight 258.00 lb Heart Rate 62 /min BP Systolic Sitting 126 mmHg BP Diastolic Sitting 80 mmHg 11/29/2013 Height 64 inches 5'4" Weight 254.00 lb Pain Level 8 BMI (Body Mass Index) 43.6 kg/m2 11/22/2013 Height 64 inches 5'4" Heart Rate 77 /min BP Systolic 160 mmHg BP Diastolic 75 mmHg 11/15/2013 Height 64 inches 5'4" Weight 254.00 lb Heart Rate 60 /min BMI (Body Mass Index) 43.6 kg/m2 11/07/2013 Height 64 inches 5'4" Weight 254.75 lb Heart Rate 60 /min BP Systolic Sitting 158 mmHg LA large cuff BP Diastolic Sitting 68 mmHg LA large cuff Respiratory Rate 12 /min BMI (Body Mass Index) 43.7 kg/m2 10/11/2013 Height 64 inches 5'4" Weight 214.00 lb Heart Rate 55 /min BP Systolic 131 mmHg BP Diastolic 71 mmHg BMI (Body Mass Index) 36.7 kg/m2 10/03/2013 Height 64 inches 5'4" Weight 250.00 lb with shoes Heart Rate 52 /min BP Systolic Sitting 156 mmHg Ra lg cuff BP Diastolic Sitting 60 mmHg Ra lg cuff BP Systolic Standing 160 mmHg Ra lg cuff BP Diastolic Standing 66 mmHg Ra lg cuff Respiratory Rate 15 /min BMI (Body Mass Index) 42.9 kg/m2 09/27/2013 Height 64 inches 5'4" Weight 253.00 lb Heart Rate 60 /min BP Systolic 158 mmHg BP Diastolic 80 mmHg BMI (Body Mass Index) 43.4 kg/m2 09/24/2013 Height 65 inches 5'5" Weight 255.75 lb Heart Rate 60 /min BP Systolic Sitting 136 mmHg BP Diastolic Sitting 74 mmHg Pain Level 4 10 walking O2 % BldC Oximetry 96 % BMI (Body Mass Index) 42.6 kg/m2 09/17/2013 Height 65 inches 5'5" Weight 253.50 lb Heart Rate 59 /min BP Systolic Sitting 130 mmHg BP Diastolic Sitting 64 mmHg BMI (Body Mass Index) 42.2 kg/m2 07/17/2013 Height 65 inches 5'5" Weight 252.00 lb Heart Rate 70 /min BP Systolic Sitting 138 mmHg BP Diastolic Sitting 84 mmHg BMI (Body Mass Index) 41.9 kg/m2 07/09/2013 Height 65 inches 5'5" Weight 255.50 lb Heart Rate 60 /min BP Systolic 162 mmHg left, lg cuff BP Diastolic 60 mmHg left, lg cuff BP Systolic Sitting 128 mmHg right, S/P rest BP Diastolic Sitting 60 mmHg right, S/P rest BP Systolic Recheck 124 mmHg left S/P rest BP Diastolic Recheck 60 mmHg left S/P rest BMI (Body Mass Index) 42.5 kg/m2 06/05/2013 Height 65 inches 5'5" Weight 251.00 lb Heart Rate 59 /min BP Systolic Sitting 143 mmHg BP Diastolic Sitting 67 mmHg Body Temperature 98.7 F BMI (Body Mass Index) 41.8 kg/m2 05/28/2013 Height 65 inches 5'5" Weight 253.00 lb Heart Rate 64 /min BP Systolic Sitting 130 mmHg BP Diastolic Sitting 58 mmHg Body Temperature 98.4 F BMI (Body Mass Index) 42.1 kg/m2 05/20/2013 Height 65 inches 5'5" Weight 252.00 lb Heart Rate 64 /min BP Systolic Sitting 144 mmHg BP Diastolic Sitting 66 mmHg BMI (Body Mass Index) 41.9 kg/m2 02/21/2013 Weight 246.00 lb Heart Rate 84 /min BP Systolic Sitting 138 mmHg BP Diastolic Sitting 58 mmHg 11/19/2012 Weight 246.50 lb Heart Rate 59 /min BP Systolic Sitting 132 mmHg BP Diastolic Sitting 64 mmHg 09/27/2012 Weight 246.50 lb Heart Rate 62 /min BP Systolic Sitting 159 mmHg BP Diastolic Sitting 68 mmHg 09/04/2012 Weight 244.00 lb Heart Rate 56 /min BP Systolic Sitting 140 mmHg BP Diastolic Sitting 58 mmHg O2 % BldC Oximetry 99 % 08/07/2012 Weight 245.50 lb Heart Rate 57 /min BP Systolic Sitting 134 mmHg BP Diastolic Sitting 64 mmHg O2 % BldC Oximetry 98 % 07/20/2012 Height 64.5 inches 5'4.50" Weight 242.00 lb Heart Rate 60 /min BP Systolic 140 mmHg BP Diastolic 68 mmHg BMI (Body Mass Index) 40.9 kg/m2 04/09/2012 Height 64.5 inches 5'4.50" Weight 246.50 lb Heart Rate 60 /min BP Systolic Sitting 138 mmHg BP Diastolic Sitting 64 mmHg BMI (Body Mass Index) 41.7 kg/m2 02/07/2012 Height 64.5 inches 5'4.50" Weight 254.00 lb Heart Rate 60 /min BP Systolic Sitting 128 mmHg BP Diastolic Sitting 76 mmHg BMI (Body Mass Index) 42.9 kg/m2 01/20/2012 Height 65.50 inches 5'5.50" Weight 252.00 lb Heart Rate 60 /min BP Systolic 100 mmHg BP Diastolic 58 mmHg BMI (Body Mass Index) 41.3 kg/m2 01/10/2012 Height 65.50 inches 5'5.50" Weight 255.00 lb Heart Rate 64 /min BP Systolic Sitting 132 mmHg BP Diastolic Sitting 68 mmHg BMI (Body Mass Index) 41.8 kg/m2 10/25/2011 Height 65.50 inches 5'5.50" Weight 248.50 lb Heart Rate 72 /min BP Systolic Sitting 108 mmHg BP Diastolic Sitting 64 mmHg BMI (Body Mass Index) 40.7 kg/m2 10/10/2011 Height 65.50 inches 5'5.50" Weight 247.00 lb Heart Rate 76 /min BP Systolic Sitting 132 mmHg BP Diastolic Sitting 72 mmHg BMI (Body Mass Index) 40.5 kg/m2 09/12/2011 Height 65.50 inches 5'5.50" Weight 243.00 lb Heart Rate 72 /min BP Systolic Sitting 140 mmHg L BP Diastolic Sitting 72 mmHg L BMI (Body Mass Index) 39.8 kg/m2 09/02/2011 Height 65.50 inches 5'5.50" Heart Rate 72 /min BP Systolic Sitting 134 mmHg BP Diastolic Sitting 58 mmHg Respiratory Rate 24 /min 08/26/2011 Height 65.50 inches 5'5.50" Heart Rate 68 /min BP Systolic Sitting 134 mmHg BP Diastolic Sitting 72 mmHg 08/25/2011 Height 65.50 inches 5'5.50" Weight 247.00 lb Heart Rate 65 /min BP Systolic Sitting 146 mmHg right arm, left arm 140/78 BP Diastolic Sitting 74 mmHg right arm, left arm 140/78 BP Systolic Standing 154 mmHg right arm BP Diastolic Standing 84 mmHg right arm BMI (Body Mass Index) 40.5 kg/m2 08/18/2011 Height 65.50 inches 5'5.50" Weight 244.00 lb Heart Rate 72 /min BP Systolic Sitting 118 mmHg L BP Diastolic Sitting 62 mmHg L BMI (Body Mass Index) 40.0 kg/m2 Results Test Date Test Result H/L Range Note Lipid Panel - [facility] 05/03/2017 Creatine Kinase(CK) 21 U/L 10-223 Comp Metabolic Panel 05/03/2017 Sodium 140 mmol/L 133-145 Potassium 4.4 mmol/L 3.5-5.0 Chloride 106 mmol/L 101-111 Co2 Carbon Dioxide 29 mmol/L 22-32 Anion Gap 5 mmol/L 2-11 Glucose 116 mg/dL High 70-100 Blood Urea Nitrogen 14 mg/dL 6-24 Creatinine 0.76 mg/dL 0.51-0.95 BUN/Creatinine Ratio 18.4 8-20 Calcium 9.4 mg/dL 8.6-10.3 Total Protein 6.4 g/dL 6.4-8.9 Albumin 4.1 g/dL 3.2-5.2 Globulin 2.3 g/dL 2-4 Albumin/Globulin Ratio 1.8 1-3 Total Bilirubin 0.60 mg/dL 0.2-1.0 Alkaline Phosphatase 82 U/L 34-104 Alt 9 U/L 7-52 Ast 12 U/L Low 13-39 Egfr Non- 74.4 >60 Egfr 95.7 >60 1 Lipid Profile (Trig/Chol/HDL) 05/03/2017 Triglycerides 95 mg/dL 2 Cholesterol 122 mg/dL 3 HDL Cholesterol 39.4 mg/dL 4 LDL Cholesterol 64 mg/dL 5 Pre Cath Panel 02/10/2017 Partial Thrombo Time PTT <pending> CBC Auto Diff 02/10/2017 White Blood Count 8.0 10^3/uL 3.5-10.8 Red Blood Count 4.39 10^6/uL 4.0-5.4 Hemoglobin 12.3 g/dL 12.0-16.0 Hematocrit 37 % 35-47 Mean Corpuscular Volume 84 fL 80-97 Mean Corpuscular Hemoglobin 28 pg 27-31 Mean Corpuscular HGB Conc 33 g/dL 31-36 Red Cell Distribution Width 14 % 10.5-15 Platelet Count 250 10^3/uL 150-450 Mean Platelet Volume 8 um3 7.4-10.4 Abs Neutrophils 5.3 10^3/uL 1.5-7.7 Abs Lymphocytes 1.9 10^3/uL 1.0-4.8 Abs Monocytes 0.4 10^3/uL 0-0.8 Abs Eosinophils 0.3 10^3/uL 0-0.6 Abs Basophils 0.1 10^3/uL 0-0.2 Abs Nucleated RBC 0.01 10^3/uL Granulocyte % 66.4 % 38-83 Lymphocyte % 23.7 % Low 25-47 Monocyte % 5.4 % 1-9 Eosinophil % 3.4 % 0-6 Basophil % 1.1 % 0-2 Nucleated Red Blood Cells % 0.1 Inr/Protime 02/10/2017 Inr 0.96 0.77-1.02 6 Basic Metabolic Panel 02/10/2017 Sodium 140 mmol/L 133-145 Potassium 4.1 mmol/L 3.5-5.0 Chloride 105 mmol/L 101-111 Co2 Carbon Dioxide 29 mmol/L 22-32 Anion Gap 6 mmol/L 2-11 Glucose 157 mg/dL High 70-100 Blood Urea Nitrogen 19 mg/dL 6-24 Creatinine 0.87 mg/dL 0.51-0.95 BUN/Creatinine Ratio 21.8 High 8-20 Calcium 9.0 mg/dL 8.6-10.3 Egfr Non- 63.6 >60 Egfr 81.9 >60 7 Basic Metabolic Panel 12/16/2016 Sodium 138 mmol/L 133-145 Potassium 4.1 mmol/L 3.5-5.0 Chloride 104 mmol/L 101-111 Co2 Carbon Dioxide 29 mmol/L 22-32 Anion Gap 5 mmol/L 2-11 Glucose 253 mg/dL High 70-100 Blood Urea Nitrogen 21 mg/dL 6-24 Creatinine 0.88 mg/dL 0.51-0.95 BUN/Creatinine Ratio 23.9 High 8-20 Calcium 9.0 mg/dL 8.6-10.3 Egfr Non- 62.8 >60 Egfr 80.8 >60 8 Laboratory test finding 12/16/2016 Creatine Kinase(CK) 22 U/L 10-223 Lipid Profile (Trig/Chol/HDL) 04/21/2016 Triglycerides 88 mg/dL 9 Cholesterol 125 mg/dL 10 HDL Cholesterol 41.0 mg/dL 11 LDL Cholesterol 66 mg/dL 12 Laboratory test finding 04/21/2016 Vitamin D Total 25(Oh) 31.7 ng/mL 30- 50 13 Comp Metabolic Panel 04/21/2016 Sodium 138 mmol/L 133-145 Potassium 4.4 mmol/L 3.5-5.0 Chloride 104 mmol/L 101-111 Co2 Carbon Dioxide 28 mmol/L 22-32 Anion Gap 6 mmol/L 2-11 Glucose 190 mg/dL High 70-100 Blood Urea Nitrogen 21 mg/dL 6-24 Creatinine 1.02 mg/dL High 0.51-0.95 BUN/Creatinine Ratio 20.6 High 8-20 Calcium 9.3 mg/dL 8.6-10.3 Total Protein 6.1 g/dL Low 6.4-8.9 Albumin 3.8 g/dL 3.2-5.2 Globulin 2.3 g/dL 2-4 Albumin/Globulin Ratio 1.7 1-3 Total Bilirubin 0.70 mg/dL 0.2-1.0 Alkaline Phosphatase 77 U/L 34-104 Alt 10 U/L 7-52 Ast 9 U/L Low 13-39 Egfr Non- 53.1 >60 Egfr 68.3 >60 14 Basic Metabolic Panel 05/21/2015 Sodium 135 mmol/L 133-145 Potassium 4.5 mmol/L 3.5-5.0 Chloride 102 mmol/L 101-111 Co2 Carbon Dioxide 26 mmol/L 22-32 Anion Gap 7 mmol/L 2-11 Glucose 208 mg/dL High 70-100 Blood Urea Nitrogen 27 mg/dL High 6-24 Creatinine 0.82 mg/dL 0.51-0.95 BUN/Creatinine Ratio 32.9 High 8-20 Calcium 9.0 mg/dL 8.6-10.3 Egfr Non- 68.5 >60 Egfr 88.1 >60 15 Iron & Iron Binding Capacity 04/16/2015 Iron 79 g/dL 50-212 Unsaturated Iron Binding 188 g/dL Total Iron Binding Capacity 267 g/dL 250-450 % Iron Saturation 30 % 15-55 Laboratory test finding 04/16/2015 Magnesium 1.9 mg/dL 1.9-2.7 CBC Auto Diff 04/16/2015 White Blood Count 8.9 10^3/uL 3.5-10.8 Red Blood Count 4.62 10^6/uL 4.0-5.4 Hemoglobin 12.7 g/dL 12.0-16.0 Hematocrit 40 % 35-47 Mean Corpuscular Volume 86 fL 80-97 Mean Corpuscular Hemoglobin 28 pg 27-31 Mean Corpuscular HGB Conc 32 g/dL 31-36 Red Cell Distribution Width 15 % 10.5-15 Platelet Count 249 10^3/uL 150-450 Mean Platelet Volume 9 um3 7.4-10.4 Abs Neutrophils 6.4 10^3/uL 1.5-7.7 Abs Lymphocytes 1.7 10^3/uL 1.0-4.8 Abs Monocytes 0.5 10^3/uL 0-0.8 Abs Eosinophils 0.3 10^3/uL 0-0.6 Abs Basophils 0.1 10^3/uL 0-0.2 Abs Nucleated RBC 0 10^3/uL Granulocyte % 71.2 % 38-83 Lymphocyte % 19.5 % Low 25-47 Monocyte % 5.7 % 1-9 Eosinophil % 3.0 % 0-6 Basophil % 0.6 % 0-2 Nucleated Red Blood Cells % 0 Lipid Profile (Trig/Chol/HDL) 04/16/2015 Triglycerides 82 mg/dL 16 Cholesterol 143 mg/dL 17 HDL Cholesterol 47.8 mg/dL 18 LDL Cholesterol 79 mg/dL 19 Comp Metabolic Panel 04/16/2015 Sodium 136 mmol/L 133-145 Potassium 4.2 mmol/L 3.5-5.0 Chloride 103 mmol/L 101-111 Co2 Carbon Dioxide 25 mmol/L 22-32 Anion Gap 8 mmol/L 2-11 Glucose 201 mg/dL High 70-100 Blood Urea Nitrogen 18 mg/dL 6-24 Creatinine 0.75 mg/dL 0.51-0.95 BUN/Creatinine Ratio 24.0 High 8-20 Calcium 9.1 mg/dL 8.6-10.3 Total Protein 6.4 g/dL 6.4-8.9 Albumin 4.2 g/dL 3.2-5.2 Globulin 2.2 g/dL 2-4 Albumin/Globulin Ratio 1.9 1-3 Total Bilirubin 0.70 mg/dL 0.2-1.0 Alkaline Phosphatase 98 U/L 34-104 Alt 11 U/L 7-52 Ast 11 U/L Low 13-39 Egfr Non- 76.0 >60 Egfr 97.7 >60 20 Lipid Panel - [facility] 04/16/2015 Creatine Kinase(CK) 29 U/L 10-223 Laboratory test finding 03/26/2015 Vitamin D Total 25(Oh) 29.7 ng/mL Low 30-50 Vitamin B12 502 pg/mL 180-914 21 CBC Auto Diff 03/26/2015 White Blood Count 9.5 10^3/uL 3.5-10.8 Red Blood Count 4.45 10^6/uL 4.0-5.4 Hemoglobin 12.6 g/dL 12.0-16.0 Hematocrit 38 % 35-47 Mean Corpuscular Volume 86 fL 80-97 Mean Corpuscular Hemoglobin 28 pg 27-31 Mean Corpuscular HGB Conc 33 g/dL 31-36 Red Cell Distribution Width 15 % 10.5-15 Platelet Count 242 10^3/uL 150-450 Mean Platelet Volume 9 um3 7.4-10.4 Abs Neutrophils 6.5 10^3/uL 1.5-7.7 Abs Lymphocytes 2.0 10^3/uL 1.0-4.8 Abs Monocytes 0.5 10^3/uL 0-0.8 Abs Eosinophils 0.3 10^3/uL 0-0.6 Abs Basophils 0.1 10^3/uL 0-0.2 Abs Nucleated RBC 0 10^3/uL Granulocyte % 69.2 % 38-83 Lymphocyte % 20.7 % Low 25-47 Monocyte % 5.5 % 1-9 Eosinophil % 3.6 % 0-6 Basophil % 1.0 % 0-2 Nucleated Red Blood Cells % 0 Basic Metabolic Panel 11/20/2014 Sodium 139 mmol/L 133-145 Potassium 4.5 mmol/L 3.5-5.0 Chloride 104 mmol/L 101-111 Co2 Carbon Dioxide 28 mmol/L 22-32 Anion Gap 7 mmol/L 2-11 Glucose 139 mg/dL High 70-100 Blood Urea Nitrogen 18 mg/dL 6-24 Creatinine 0.75 mg/dL 0.51-0.95 BUN/Creatinine Ratio 24.0 High 8-20 Calcium 8.9 mg/dL 8.6-10.3 Egfr Non- 76.0 >60 Egfr 97.7 >60 22 Laboratory test finding 09/16/2014 Point of Care 168 mg/dL High 74-106 23 Glucose Laboratory test finding 09/16/2014 Point of Care 180 mg/dL High 74-106 24 Glucose Protime W/ Inr 09/12/2014 Inr 0.97 0.78-1.07 Cath Panel 09/12/2014 Partial Thrombo Time 34.9 seconds 26.0-36.3 PTT Laboratory test finding 09/12/2014 TSH (Thyroid Stim 1.27 ?IU/mL 0.34- 5.60 Horm) Iron And Tibc Serum 09/12/2014 Iron 62 g/dL 50-212 Unsaturated Iron Binding 215 g/dL Total Iron Binding Capacity 277 g/dL 250-450 % Iron Saturation 22 % 15-55 CBC W/Auto Diff 09/12/2014 White Blood Count 8.9 10^3/uL 4.8-10.8 Red Blood Count 4.62 10^6/uL 4.0-5.4 Hemoglobin 12.7 g/dL 12.0-16.0 Hematocrit 39 % 35-47 Mean Corpuscular Volume 85 fL 80-97 Mean Corpuscular Hemoglobin 27 pg 27-31 Mean Corpuscular HGB Conc 32 g/dL 31-36 Red Cell Distribution Width 15 % 10.5-15 Platelet Count 262 10^3/uL 150-450 Mean Platelet Volume 9 um3 7.4-10.4 Abs Neutrophils 5.9 10^3/uL 1.5-7.7 Abs Lymphocytes 2.1 10^3/uL 1.0-4.8 Abs Monocytes 0.5 10^3/uL 0-0.8 Abs Eosinophils 0.3 10^3/uL 0-0.6 Abs Basophils 0.1 10^3/uL 0-0.2 Abs Nucleated RBC 0 10^3/uL Granulocyte % 66.1 % 38-83 Lymphocyte % 23.1 % Low 25-47 Monocyte % 5.7 % 1-9 Eosinophil % 3.9 % 0-6 Basophil % 1.2 % 0-2 Nucleated Red Blood Cells % 0 Lipid Panel 09/12/2014 Triglycerides 94 mg/dL 25 Cholesterol 139 mg/dL 26 HDL Cholesterol 42.7 mg/dL 27 LDL Cholesterol 78 mg/dL 28 CMP Panel 09/12/2014 Sodium 139 mmol/L 133-145 Potassium 4.2 mmol/L 3.5-5.0 Chloride 104 mmol/L 101-111 Co2 Carbon Dioxide 29 mmol/L 22-32 Anion Gap 6 mmol/L 2-11 Glucose 123 mg/dL High 70-100 Blood Urea Nitrogen 19 mg/dL 6-24 Creatinine 0.74 mg/dL 0.51-0.95 BUN/Creatinine Ratio 25.7 High 8-20 Calcium 9.2 mg/dL 8.6-10.3 Total Protein 6.4 g/dL 6.4-8.9 Albumin 4.2 g/dL 3.2-5.2 Globulin 2.2 g/dL 2-4 Albumin/Globulin Ratio 1.9 1-3 Total Bilirubin 0.80 mg/dL 0.2-1.0 Alkaline Phosphatase 81 U/L 34-104 Alt 9 U/L 7-52 Ast 10 U/L Low 13-39 Egfr Non- 77.4 >60 Egfr 99.5 >60 29 Lipid Panel - [facility] 09/12/2014 Creatine Kinase(CK) 27 U/L 10-223 Order 08/07/2014 Holter Monitor <pending> CBC Auto Diff 06/26/2014 White Blood Count 10.7 10^3/uL 4.8-10.8 Red Blood Count 4.50 10^6/uL 4.0-5.4 Hemoglobin 12.3 g/dL 12.0-16.0 Hematocrit 38 % 35-47 Mean Corpuscular Volume 83 fL 80-97 Mean Corpuscular Hemoglobin 27 pg 27-31 Mean Corpuscular HGB Conc 33 g/dL 31-36 Red Cell Distribution Width 15 % 10.5-15 Platelet Count 251 10^3/uL 150-450 Mean Platelet Volume 9 um3 7.4-10.4 Abs Neutrophils 7.4 10^3/uL 1.5-7.7 Abs Lymphocytes 2.2 10^3/uL 1.0-4.8 Abs Monocytes 0.8 10^3/uL 0-0.8 Abs Eosinophils 0.4 10^3/uL 0-0.6 Abs Basophils 0 10^3/uL 0-0.2 Abs Nucleated RBC 0 10^3/uL Granulocyte % 68.7 % 38-83 Lymphocyte % 20.3 % Low 25-47 Monocyte % 7.2 % 1-9 Eosinophil % 3.5 % 0-6 Basophil % 0.3 % 0-2 Nucleated Red Blood Cells % 0 Inr/Protime 06/26/2014 Inr 0.98 0.78-1.07 Laboratory test finding 06/26/2014 Activated Partial 33.2 seconds 26.0- 36.3 Thrombo Time Comp Metabolic Panel 06/26/2014 Sodium 139 mmol/L 133-145 Potassium 3.9 mmol/L 3.5-5.0 Chloride 106 mmol/L 101-111 Co2 Carbon Dioxide 29 mmol/L 22-32 Anion Gap 4 mmol/L 2-11 Glucose 83 mg/dL 70-100 Blood Urea Nitrogen 20 mg/dL 6-24 Creatinine 0.73 mg/dL 0.51-0.95 BUN/Creatinine Ratio 27.4 High 8-20 Calcium 9.4 mg/dL 8.6-10.3 Total Protein 6.5 g/dL 6.4-8.9 Albumin 4.0 g/dL 3.2-5.2 Globulin 2.5 g/dL 2-4 Albumin/Globulin Ratio 1.6 1-3 Total Bilirubin 0.60 mg/dL 0.2-1.0 Alkaline Phosphatase 78 U/L 34-104 Alt 9 U/L 7-52 Ast 11 U/L Low 13-39 Egfr Non- 78.6 >60 Egfr 101.1 >60 30 Laboratory test finding 06/26/2014 Troponin I 0.00 ng/mL <0.03 31 D Dimer Quantitative < 200 ng/mL Less Than 230 32 B Type Natriuretic Peptide 27 pg/mL 33 T4 9.74 g/dL 6.09-12.23 Free T3 2.80 pg/mL 2.5-3.9 TSH (Thyroid Stimulating Horm) 1.15 IU/mL 0.34-5.60 Urinalysis Profile 02/19/2014 Urine Color Yellow Urine Appearance Clear Urine Specific [place] 1.015 1.010-1.030 Urine pH 6.0 5-9 Urine Urobilinogen Negative Negative Urine Ketones Negative Negative Urine Protein Negative Negative Urine Leukocytes Negative Negative Urine Blood Negative Negative Urine Nitrite Negative Negative Urine Bilirubin Negative Negative Urine Glucose Negative Negative CBC No Diff 02/19/2014 White Blood Count 11.5 10^3/uL High 4.8-10.8 Red Blood Count 4.73 10^6/uL 4.0-5.4 Hemoglobin 13.7 g/dL 12.0-16.0 Hematocrit 42 % 35-47 Mean Corpuscular Volume 88 fL 80-97 Mean Corpuscular Hemoglobin 29 pg 27-31 Mean Corpuscular HGB Conc 33 g/dL 31-36 Red Cell Distribution Width 14 % 10.5-15 Platelet Count 235 10^3/uL 150-450 Mean Platelet Volume 9 um3 7.4-10.4 Basic Metabolic Panel 02/19/2014 Sodium 140 mmol/L 133-145 Potassium 4.0 mmol/L 3.5-5.0 Chloride 106 mmol/L 101-111 Co2 Carbon Dioxide 28 mmol/L 22-32 Anion Gap 6 mmol/L 2-11 Glucose 93 mg/dL 70-100 Blood Urea Nitrogen 16 mg/dL 6-24 Creatinine 0.88 mg/dL 0.51-0.95 BUN/Creatinine Ratio 18.2 8-20 Calcium 9.6 mg/dL 8.6-10.3 Egfr Non- 63.3 >60 Egfr 81.5 >60 34 Type & Screen 02/19/2014 Patient Blood Type A Positive Antibody Screen NEGATIVE Lipid Panel - [facility] 09/17/2013 Creatine Kinase 41 U/L 10-223 35, 36 Comp Metabolic Panel 09/17/2013 Sodium 138 mmol/L 133-145 35 Potassium 4.1 mmol/L 3.7-5.6 35 Chloride 103 mmol/L 101-111 35 Co2 Carbon Dioxide 27 mmol/L 22-32 35 Anion Gap 8 mmol/L 2-11 35 Glucose 157 mg/dL High 70-100 35 Blood Urea Nitrogen 17 mg/dL 6-24 35 Creatinine 0.84 mg/dL 0.51-0.95 35 BUN/Creatinine Ratio 20.2 High 8-20 35 Calcium 9.2 mg/dL 8.6-10.3 35 Total Protein 6.4 g/dL 6.4-8.9 35 Albumin 4.2 g/dL 3.2-5.2 35 Globulin 2.2 g/dL 2-4 35 Albumin/Globulin Ratio 1.9 1-3 35 Total Bilirubin 0.80 mg/dL 0.2-1.0 35 Alkaline Phosphatase 75 U/L 34-104 35 Alt 14 U/L 7-52 35 Ast 12 U/L Low 13-39 35 Egfr Non- 67.0 >60 35 Egfr 86.2 >60 35, 37 Lipid Profile (Trig/Chol/HDL) 09/17/2013 Triglycerides 75 mg/dL 35, 38 Cholesterol 149 mg/dL 35, 39 HDL Cholesterol 45.4 mg/dL 35, 40 LDL Cholesterol 89 mg/dL 35, 41 Laboratory test finding 07/17/2013 Affirm Vaginal Dna Probe (SEE NOTE) 42 Vitamin D, 25 Hydroxy 05/28/2013 25-Hydroxy Vitamin D2 4.8 ng/mL 25-Hydroxy Vitamin D3 29 ng/mL 25-Hydroxy Vitamin D Total 34 ng/mL 43 Drug Abuse 20 Urine 02/21/2013 Urine Amphetamine Negative ng/mL 44 Urine Barbiturates Negative ng/mL 45 Urine Benzodiazepines Negative ng/mL 46 Urine Cocaine Negative ng/mL 47 Urine Methadone Negative ng/mL 48 Urine Opiates Negative ng/mL 49 Urine Phencyclidine Negative ng/mL Cutoff: 25 Urine Propoxyphene Negative ng/mL 50 Urine Tetrahydrocannabinol Negative ng/mL Cutoff: 20 51 Creatinine 149.5 mg/dL Specific [place] 1.029 pH 4.7 Oxidants Negative 52 Urine Opiates Screen Negative 53 Urine Codeine Confirmation Negative ng/mL 54 Urine Hydrocodone Confirm Negative ng/mL 55 Urine Hydromorphone Confirm Negative ng/mL 56 Urine Morphine Confirm Negative ng/mL 57 Urine Oxycodone Confirm 1251 ng/mL 58 Urine Opiates Interpretation See Comment 59 CBC Auto Diff 09/27/2012 White Blood Count 9.1 10^3/uL 4.8-10.8 Red Blood Count 4.26 10^6/uL 4.0-5.4 Hemoglobin 12.2 g/dL 12.0-16.0 Hematocrit 37 % 35-47 Mean Corpuscular Volume 86 fL 80-97 Mean Corpuscular Hemoglobin 29 pg 27-31 Mean Corpuscular HGB Conc 34 g/dL 31-36 Red Cell Distribution Width 14 % 10.5-15 Platelet Count 232 10^3/uL 150-450 Mean Platelet Volume 9 um3 7.4-10.4 Abs Neutrophils 6.2 10^3/uL 1.5-7.7 Abs Lymphocytes 1.9 10^3/uL 1.0-4.8 Abs Monocytes 0.6 10^3/uL 0-0.8 Abs Eosinophils 0.4 10^3/uL 0-0.6 Abs Basophils 0.1 10^3/uL 0-0.2 Abs Nucleated RBC 0.01 10^3/uL Granulocyte % 68.4 % 38-83 Lymphocyte % 20.6 % Low 25-47 Monocyte % 6.4 % 1-9 Eosinophil % 4.0 % 0-6 Basophil % 0.6 % 0-2 Nucleated Red Blood Cells % 0.1 Comp Metabolic Panel 09/27/2012 Sodium 139 mmol/L 133-145 Potassium 4.5 mmol/L 3.5-5.0 Chloride 104 mmol/L 101-111 Co2 Carbon Dioxide 28.0 mmol/L 22-32 Anion Gap 7.0 mmol/L 2-11 Glucose 139 mg/dL High 70-100 Blood Urea Nitrogen 14 mg/dL 6-24 Creatinine 0.80 mg/dL 0.50-1.40 BUN/Creatinine Ratio 17.5 8-20 Calcium 9.3 mg/dL 8.1-9.9 Total Protein 5.8 g/dL Low 6.2-8.1 Albumin 3.7 g/dL 3.2-5.2 Globulin 2.1 g/dL 2-4 Albumin/Globulin Ratio 1.8 1-3 Total Bilirubin 0.8 mg/dL 0.4-1.5 Alkaline Phosphatase 87 U/L 30-110 Alt 15 U/L 14-54 Ast 14 U/L 12-42 Egfr Non- 71.1 >60 Egfr 91.5 >60 60 Lipid Profile (Trig/Chol/HDL) 09/27/2012 Triglycerides 62 mg/dL 40-200 Cholesterol 122 mg/dL Less than 200 HDL Cholesterol 45 mg/dL 40-60 61 Cholesterol/HDL Ratio 2.7 Average 1-4.44 LDL Cholesterol 64.6 Less Than 100 62 Laboratory test finding 09/27/2012 Creatine Kinase 33 U/L 0-200 Laboratory test finding 09/07/2012 Erythrocyte Sed Rate 16 mm/Hr 0-40 Vitamin D, 25 Hydroxy 09/07/2012 25-Hydroxy Vitamin D2 <4.0 ng/mL 25-Hydroxy Vitamin D3 32 ng/mL 25-Hydroxy Vitamin D Total 32 ng/mL 63 CBC Auto Diff 09/07/2012 White Blood Count 9.2 10^3/uL 4.8-10.8 Red Blood Count 4.09 10^6/uL 4.0-5.4 Hemoglobin 11.4 g/dL Low 12.0-16.0 Hematocrit 35 % 35-47 Mean Corpuscular Volume 86 fL 80-97 Mean Corpuscular Hemoglobin 28 pg 27-31 Mean Corpuscular HGB Conc 32 g/dL 31-36 Red Cell Distribution Width 14 % 10.5-15 Platelet Count 240 10^3/uL 150-450 Mean Platelet Volume 9 um3 7.4-10.4 Abs Neutrophils 6.3 10^3/uL 1.5-7.7 Abs Lymphocytes 1.9 10^3/uL 1.0-4.8 Abs Monocytes 0.5 10^3/uL 0-0.8 Abs Eosinophils 0.4 10^3/uL 0-0.6 Abs Basophils 0.1 10^3/uL 0-0.2 Abs Nucleated RBC 0 10^3/uL Granulocyte % 68.4 % 38-83 Lymphocyte % 21.0 % Low 25-47 Monocyte % 5.8 % 1-9 Eosinophil % 4.1 % 0-6 Basophil % 0.7 % 0-2 Nucleated Red Blood Cells % 0 Laboratory test finding 09/04/2012 CRP High Sensitivity 17.6 mg/L 64 Rheumatoid Factor <15 IU/mL <15 65 Noemi (Anti-Nuclear AB) Screen Negative Negative Comp Metabolic Panel 08/24/2012 Sodium 138 mmol/L 133-145 Potassium 4.4 mmol/L 3.5-5.0 Chloride 104 mmol/L 101-111 Co2 Carbon Dioxide 27.0 mmol/L 22-32 Anion Gap 7.0 mmol/L 2-11 Glucose 114 mg/dL High 70-100 Blood Urea Nitrogen 21 mg/dL 6-24 Creatinine 0.90 mg/dL 0.50-1.40 BUN/Creatinine Ratio 23.3 High 8-20 Calcium 9.4 mg/dL 8.1-9.9 Total Protein 6.4 g/dL 6.2-8.1 Albumin 3.6 g/dL 3.2-5.2 Globulin 2.8 g/dL 2-4 Albumin/Globulin Ratio 1.3 1-3 Total Bilirubin 0.7 mg/dL 0.4-1.5 Alkaline Phosphatase 87 U/L 30-110 Alt 15 U/L 14-54 Ast 16 U/L 12-42 Egfr Non- 62.1 >60 Egfr 79.8 >60 66 Laboratory test finding 08/24/2012 Magnesium 2.0 mg/dL 1.7-2.6 Troponin I 0.01 ng/mL 0-0.06 67 C Reactive Protein 1.4 mg/dL High Less than 0.5 Laboratory test finding 08/24/2012 Activated Partial 26.5 seconds 22.18- 37.18 Thrombo Time B Type Natriuretic Peptide 28.0 pg/mL 0-100 Inr/Protime 08/24/2012 Inr 0.93 0.87-0.97 CBC Auto Diff 08/24/2012 White Blood Count 11.1 10^3/uL High 4.8-10.8 Red Blood Count 4.24 10^6/uL 4.0-5.4 Hemoglobin 12.0 g/dL 12.0-16.0 Hematocrit 36 % 35-47 Mean Corpuscular Volume 85 fL 80-97 Mean Corpuscular Hemoglobin 28 pg 27-31 Mean Corpuscular HGB Conc 33 g/dL 31-36 Red Cell Distribution Width 14 % 10.5-15 Platelet Count 245 10^3/uL 150-450 Mean Platelet Volume 9 um3 7.4-10.4 Abs Neutrophils 7.6 10^3/uL 1.5-7.7 Abs Lymphocytes 2.4 10^3/uL 1.0-4.8 Abs Monocytes 0.7 10^3/uL 0-0.8 Abs Eosinophils 0.4 10^3/uL 0-0.6 Abs Basophils 0.1 10^3/uL 0-0.2 Abs Nucleated RBC 0 10^3/uL Granulocyte % 68.2 % 38-83 Lymphocyte % 21.5 % Low 25-47 Monocyte % 5.9 % 1-9 Eosinophil % 3.6 % 0-6 Basophil % 0.8 % 0-2 Nucleated Red Blood Cells % 0 Drug Abuse 20 Urine 08/07/2012 Urine Amphetamine Negative ng/mL 68 Urine Barbiturates Negative ng/mL 69 Urine Benzodiazepines Negative ng/mL 70 Urine Cocaine Negative ng/mL 71 Urine Methadone Negative ng/mL 72 Urine Opiates Negative ng/mL 73 Urine Phencyclidine Negative ng/mL Cutoff: 25 Urine Propoxyphene Negative ng/mL 74 Urine Tetrahydrocannabinol Negative ng/mL Cutoff: 20 75 Creatinine 163.1 mg/dL Specific [place] 1.022 pH 5.6 Oxidants Negative 76 Urine Opiates Screen Negative 77 Urine Codeine Confirmation Negative ng/mL 78 Urine Hydrocodone Confirm Negative ng/mL 79 Urine Hydromorphone Confirm Negative ng/mL 80 Urine Morphine Confirm Negative ng/mL 81 Urine Oxycodone Confirm 683 ng/mL 82 Urine Opiates Interpretation See Comment 83 Lipid Profile (Trig/Chol/HDL) 05/15/2012 Triglycerides 73 mg/dL 40-200 Cholesterol 141 mg/dL Less than 200 HDL Cholesterol 39 mg/dL Low 40-60 84 Cholesterol/HDL Ratio 3.6 Average 1-4.44 LDL Cholesterol 87.4 mg/dL Less Than 100 85 Lipid Panel 05/14/2012 Cholesterol Total <pending> Cholesterol/HDL Ratio <pending> High Density Lipoprotein <pending> LDL/HDL Risk Ratio <pending> Z#LDL Low Density Lipoprotein <pending> Triglycerides <pending> Iron & Iron Binding Capacity 01/20/2012 Iron 66 UG/ML 28-170 Unsaturated Iron Binding 208 g/dL Total Iron Binding Capacity 274 g/dL 250-450 Transferrin 195.7 % Iron Saturation 24 % 15-55 Basic Metabolic Panel 01/20/2012 Sodium 139 mmol/L 133-145 Potassium 4.3 mmol/L 3.5-5.0 Chloride 104 mmol/L 101-111 Co2 Carbon Dioxide 28.0 mmol/L 22-32 Anion Gap 7.0 mmol/L 2-11 Glucose 244 mg/dL High 70-100 Blood Urea Nitrogen 19 mg/dL 6-24 Creatinine 0.80 mg/dL 0.50-1.40 BUN/Creatinine Ratio 23.8 High 8-20 Calcium 9.5 mg/dL 8.1-9.9 Egfr Non- 71.1 >60 Egfr 91.5 >60 86 CBC Auto Diff 01/20/2012 White Blood Count 8.3 10^3/uL 4.8-10.8 Red Blood Count 4.04 10^6/uL 4.0-5.4 Hemoglobin 11.5 g/dL Low 12.0-16.0 Hematocrit 35 % 35-47 Mean Corpuscular Volume 87 fL 80-97 Mean Corpuscular Hemoglobin 28 pg 27-31 Mean Corpuscular HGB Conc 33 g/dL 31-36 Red Cell Distribution Width 14 % 10.5-15 Platelet Count 206 10^3/uL 150-450 Mean Platelet Volume 9 um3 7.4-10.4 Abs Neutrophils 5.5 10^3/uL 1.5-7.7 Abs Lymphocytes 2.0 10^3/uL 1.0-4.8 Abs Monocytes 0.4 10^3/uL 0-0.8 Abs Eosinophils 0.3 10^3/uL 0-0.6 Abs Basophils 0.1 10^3/uL 0-0.2 Abs Nucleated RBC 0 10^3/uL Granulocyte % 65.7 % 38-83 Lymphocyte % 24.1 % Low 25-47 Monocyte % 5.4 % 1-9 Eosinophil % 3.7 % 0-6 Basophil % 1.1 % 0-2 Nucleated Red Blood Cells % 0 CBC With Manual Diff 01/10/2012 White Blood Count 7.8 10^3/uL 4.8-10.8 Red Blood Count 4.14 10^6/uL 4.0-5.4 Hemoglobin 11.9 g/dL Low 12.0-16.0 Hematocrit 36 % 35-47 Mean Corpuscular Volume 87 fL 80-97 Mean Corpuscular Hemoglobin 29 pg 27-31 Mean Corpuscular HGB Conc 33 g/dL 31-36 Red Cell Distribution Width 14 % 10.5-15 Platelet Count 219 10^3/uL 150-450 Platelet Morphology Large Mean Platelet Volume 10 um3 7.4-10.4 Abs Neutrophils 4.6 10^3/uL 1.5-7.7 Abs Lymphocytes 2.2 10^3/uL 1.0-4.8 Abs Monocytes 0.5 10^3/uL 0-0.8 Abs Eosinophils 0.3 10^3/uL 0-0.6 Abs Basophils 0.1 10^3/uL 0-0.2 Abs Nucleated RBC 0.01 10^3/uL Neutrophil % 60.0 % 38-83 Band % 1.0 % 0-8 Lymphocytes % 25.0 % 25-47 Monocytes % 5.0 % 0-13 Eosinophils % 3.0 % 0-6 Basophil % 0 % 0-2 Reactive Lymph % 6.0 % 0-6 Metamyelocytes % 0 % 0-2 Myelocytes % 0 % 0-1 Promyelocytes % 0 % Blast % 0 % RBC Morphology Normal Normal Lipid Profile (Trig/Chol/HDL) 01/10/2012 Triglycerides 87 mg/dL 40-200 Cholesterol 204 mg/dL High Less than 200 87 HDL Cholesterol 49 mg/dL 40-60 88 Cholesterol/HDL Ratio 4.2 AVERAGE 1-4.44 LDL Cholesterol 137.6 mg/dL High Less Than 100 89 Laboratory test finding 01/10/2012 Free T4 0.70 NG/ML 0.61-1.24 Free T3 2.72 pg/mL 2.39-6.79 TSH (Thyroid Stimulating Horm) 3.21 MIU/ML 0.34-5.60 Laboratory test finding 09/06/2011 Vitamin D, 1,25 Dihydroxy 27 pg/mL 18- 78 90 Lipid Profile 09/06/2011 Triglyceride 136 mg/dL 40-200 (Trig/Chol/HDL) Cholesterol 170 mg/dL Less Than 200 91 High Density Lipoprotein 37 mg/dL Low 40-60 92 Cholesterol/HDL Ratio 4.59 AVERAGE High 1-4.44 Low Density Lipoprotein 106 mg/dL High Less Than 100 93 Comp Metabolic Panel 09/06/2011 Sodium 137 mmol/L 135-145 Potassium 4.3 mmol/L 3.5-5.0 Chloride 102 mmol/L 101-111 Co2 (Carbon Dioxide) 24.0 mmol/L 22-32 Anion Gap 11.0 mmol/L 2-11 94 Glucose 173 mg/dL High 70-100 BUN 15 mg/dL 6-24 Creatinine 0.7 mg/dL 0.50-1.40 One Over Creatinine 1.42 BUN/Creatinine Ratio 21.4 High 8-20 Calcium 9.0 mg/dL 8.1-9.9 Total Protein 6.3 GM/DL 6.2-8.1 Albumin 3.7 GM/DL 3.2-5.2 Globulin 2.6 GM/DL 2-4 Albumin/Globulin Ratio 1.4 1-3 Bilirubin Total 0.9 mg/dL 0.4-1.5 95 Alkaline Phosphatase 94 U/L 30-110 Alt (SGPT) 16 U/L 14-54 Ast (Sgot) 14 U/L 12-42 eGFR Non- 83.2 > 60 eGFR 107.0 > 60 96 CBC Auto Diff 09/06/2011 White Blood Count 9.6 CUMM 4.8-10.8 Red Cell Count 4.44 CUMM 4.2-5.4 Hemoglobin 12.6 g/dL 12.0-16.0 Hematocrit 38 % 35-47 Mean Corpuscular Volume 87 um3 79-97 Mean Corpuscular Hemoglob 28 pg 27-31 Mean Corpuscular HGB Cone 33 g/dL 32-36 Redcell Distribution WDTH 14 % 10.5-15 Platelet Count 244 CUMM 150-450 Mean Platelet Volume 9.3 um3 7.4-10.4 Absolute Neutrophil Count 7.9 High 1.5-7.7 97 Vitamin B12 And Folate Serum 09/06/2011 Vitamin B12 581 pg/mL 180-914 Folic Acid 6.9 NG/ML See Below 98 Laboratory test finding 09/06/2011 TSH 5.20 MIU/ML 0.34-5.60 Thyroxine Free 0.76 ng/dL 0.61-1.24 Manual Differential 09/06/2011 Polysegmented Neutrophil 82 % 38-83 Lymphocyte 11 % Low 25-47 Monocyte 4 % 0-13 Eosinophil 3 % 0-6 RBC Morphology NORMAL Cath Panel 08/25/2011 PTT (Aptt) 30.3 SEC 25.1-38.5 CBC With Manual Diff 08/25/2011 White Blood Count 8.8 CUMM 4.8-10.8 Red Cell Count 4.13 CUMM Low 4.2-5.4 Hemoglobin 12.0 g/dL 12.0-16.0 Hematocrit 36 % 35-47 Mean Corpuscular Volume 87 um3 79-97 Mean Corpuscular Hemoglob 29 pg 27-31 Mean Corpuscular HGB Cone 34 g/dL 32-36 Redcell Distribution WDTH 14 % 10.5-15 Platelet Count 241 CUMM 150-450 Mean Platelet Volume 8.9 um3 7.4-10.4 Absolute Neutrophil Count 5.9 1.5-7.7 Polysegmented Neutrophil 61 % 38-83 Lymphocyte 31 % 25-47 Monocyte 3 % 0-13 Eosinophil 5 % 0-6 RBC Morphology NORMAL Basic Metabolic Panel 08/25/2011 Sodium 138 mmol/L 135-145 Potassium 4.0 mmol/L 3.5-5.0 Chloride 104 mmol/L 101-111 Co2 (Carbon Dioxide) 29.0 mmol/L 22-32 Anion Gap 5.0 mmol/L 2-11 99 Glucose 145 mg/dL High 70-100 BUN 17 mg/dL 6-24 Creatinine 0.8 mg/dL 0.50-1.40 One Over Creatinine 1.25 BUN/Creatinine Ratio 21.3 High 8-20 Calcium 9.3 mg/dL 8.1-9.9 eGFR Non- 71.3 > 60 eGFR 91.7 > 60 100 Protime 08/25/2011 Inr 0.91 0.88-1.13 101 Protime 10.8 SEC 10.3-13.5 102 Laboratory test finding 08/18/2011 Hemoglobin A1c 7.6 High 5-7 1 Because ethnic data is not always readily available, this report includes an eGFR for both -Americans and non- Americans. The National Kidney Disease Education Program (NKDEP) does not endorse the use of the MDRD equation for patients that are not between the ages of 18 and 70, are , have extremes of body size, muscle mass, or nutritional status, or are non- or non-. According to the National Kidney Foundation, irrespective of diagnosis, the stage of the disease is based on the level of kidney function: Stage Description GFR(mL/min/1.73 m(2)) 1 Kidney damage with normal or decreased GFR 90 2 Kidney damage with mild decrease in GFR 60-89 3 Moderate decrease in GFR 30-59 4 Severe decrease in GFR 15-29 5 Kidney failure <15 (or dialysis) 2 Desirable: <150 Borderline High: 150-199 High: 200-499 Very High: >500 3 Desirable: <200 Borderline High: 200-239 High: >239 4 Low: <40 Desirable: 40-60 High: >60 5 Desirable: <100 Near Optimal: 100-129 Borderline High: 130-159 High: 160-189 Very High: >189 6 Please note the change in INR reference range effective 17. 7 Because ethnic data is not always readily available, this report includes an eGFR for both -Americans and non- Americans. The National Kidney Disease Education Program (NKDEP) does not endorse the use of the MDRD equation for patients that are not between the ages of 18 and 70, are , have extremes of body size, muscle mass, or nutritional status, or are non- or non-. According to the National Kidney Foundation, irrespective of diagnosis, the stage of the disease is based on the level of kidney function: Stage Description GFR(mL/min/1.73 m(2)) 1 Kidney damage with normal or decreased GFR 90 2 Kidney damage with mild decrease in GFR 60-89 3 Moderate decrease in GFR 30-59 4 Severe decrease in GFR 15-29 5 Kidney failure <15 (or dialysis) 8 Because ethnic data is not always readily available, this report includes an eGFR for both -Americans and non- Americans. The National Kidney Disease Education Program (NKDEP) does not endorse the use of the MDRD equation for patients that are not between the ages of 18 and 70, are , have extremes of body size, muscle mass, or nutritional status, or are non- or non-. According to the National Kidney Foundation, irrespective of diagnosis, the stage of the disease is based on the level of kidney function: Stage Description GFR(mL/min/1.73 m(2)) 1 Kidney damage with normal or decreased GFR 90 2 Kidney damage with mild decrease in GFR 60-89 3 Moderate decrease in GFR 30-59 4 Severe decrease in GFR 15-29 5 Kidney failure <15 (or dialysis) 9 Desirable <150 Borderline high 150-199 High 200-499 Very High >500 10 Desirable <200 Borderline high 200-239 High >239 11 Low <40 Desirable: 40-60 High: >60 12 Desirable: <100 mg/dL Near Optimal: 100-129 mg/dL Borderline High: 130-159 mg/dL High: 160-189 mg/dL Very High: >189 mg/dL 13 FASTING 12 HOUR cc pmd 14 Because ethnic data is not always readily available, this report includes an eGFR for both -Americans and non- Americans. The National Kidney Disease Education Program (NKDEP) does not endorse the use of the MDRD equation for patients that are not between the ages of 18 and 70, are , have extremes of body size, muscle mass, or nutritional status, or are non- or non-. According to the National Kidney Foundation, irrespective of diagnosis, the stage of the disease is based on the level of kidney function: Stage Description GFR(mL/min/1.73 m(2)) 1 Kidney damage with normal or decreased GFR 90 2 Kidney damage with mild decrease in GFR 60-89 3 Moderate decrease in GFR 30-59 4 Severe decrease in GFR 15-29 5 Kidney failure <15 (or dialysis) 15 Because ethnic data is not always readily available, this report includes an eGFR for both -Americans and non- Americans. The National Kidney Disease Education Program (NKDEP) does not endorse the use of the MDRD equation for patients that are not between the ages of 18 and 70, are , have extremes of body size, muscle mass, or nutritional status, or are non- or non-. According to the National Kidney Foundation, irrespective of diagnosis, the stage of the disease is based on the level of kidney function: Stage Description GFR(mL/min/1.73 m(2)) 1 Kidney damage with normal or decreased GFR 90 2 Kidney damage with mild decrease in GFR 60-89 3 Moderate decrease in GFR 30-59 4 Severe decrease in GFR 15-29 5 Kidney failure <15 (or dialysis) 16 Desirable <150 Borderline high 150-199 High 200-499 Very High >500 17 Desirable <200 Borderline high 200-239 High >239 18 Low <40 Desirable: 40-60 High: >60 19 Desirable: <100 mg/dL Near Optimal: 100-129 mg/dL Borderline High: 130-159 mg/dL High: 160-189 mg/dL Very High: >189 mg/dL 20 Because ethnic data is not always readily available, this report includes an eGFR for both -Americans and non- Americans. The National Kidney Disease Education Program (NKDEP) does not endorse the use of the MDRD equation for patients that are not between the ages of 18 and 70, are , have extremes of body size, muscle mass, or nutritional status, or are non- or non-. According to the National Kidney Foundation, irrespective of diagnosis, the stage of the disease is based on the level of kidney function: Stage Description GFR(mL/min/1.73 m(2)) 1 Kidney damage with normal or decreased GFR 90 2 Kidney damage with mild decrease in GFR 60-89 3 Moderate decrease in GFR 30-59 4 Severe decrease in GFR 15-29 5 Kidney failure <15 (or dialysis) 21 Normal Range 180 to 914 Indeterminate Range 145 to 180 Deficient Range <145 22 Because ethnic data is not always readily available, this report includes an eGFR for both -Americans and non- Americans. The National Kidney Disease Education Program (NKDEP) does not endorse the use of the MDRD equation for patients that are not between the ages of 18 and 70, are , have extremes of body size, muscle mass, or nutritional status, or are non- or non-. According to the National Kidney Foundation, irrespective of diagnosis, the stage of the disease is based on the level of kidney function: Stage Description GFR(mL/min/1.73 m(2)) 1 Kidney damage with normal or decreased GFR 90 2 Kidney damage with mild decrease in GFR 60-89 3 Moderate decrease in GFR 30-59 4 Severe decrease in GFR 15-29 5 Kidney failure <15 (or dialysis) 23 Tower Truck Driver: [id number] SHURTLEFF MARIA INES 24 Tower Truck Driver: [id number] SHURTLEFF MARIA INES 25 Desirable <150 Borderline high 150-199 High 200-499 Very High >500 26 Desirable <200 Borderline high 200-239 High >239 27 Low <40 Desirable: 40-60 High: >60 28 Desirable: <100 mg/dL Near Optimal: 100-129 mg/dL Borderline High: 130-159 mg/dL High: 160-189 mg/dL Very High: >189 mg/dL 29 Because ethnic data is not always readily available, this report includes an eGFR for both -Americans and non- Americans. The National Kidney Disease Education Program (NKDEP) does not endorse the use of the MDRD equation for patients that are not between the ages of 18 and 70, are , have extremes of body size, muscle mass, or nutritional status, or are non- or non-. According to the National Kidney Foundation, irrespective of diagnosis, the stage of the disease is based on the level of kidney function: Stage Description GFR(mL/min/1.73 m(2)) 1 Kidney damage with normal or decreased GFR 90 2 Kidney damage with mild decrease in GFR 60-89 3 Moderate decrease in GFR 30-59 4 Severe decrease in GFR 15-29 5 Kidney failure <15 (or dialysis) 30 Because ethnic data is not always readily available, this report includes an eGFR for both -Americans and non- Americans. The National Kidney Disease Education Program (NKDEP) does not endorse the use of the MDRD equation for patients that are not between the ages of 18 and 70, are , have extremes of body size, muscle mass, or nutritional status, or are non- or non-. According to the National Kidney Foundation, irrespective of diagnosis, the stage of the disease is based on the level of kidney function: Stage Description GFR(mL/min/1.73 m(2)) 1 Kidney damage with normal or decreased GFR 90 2 Kidney damage with mild decrease in GFR 60-89 3 Moderate decrease in GFR 30-59 4 Severe decrease in GFR 15-29 5 Kidney failure <15 (or dialysis) 31 Reference Range and Interpretation: TnI (ng/mL) Interpretation Less Than 0.03 ng/mL Not supportive of diagnosis of CT 0.03 - 0.50 ng/mL Indeterminate: suggest serial studies if clinically indicated. Greater than 0.5 ng/mL Consistent with diagnosis of CT 32 Please note: The following may produce a false positive D Dimer test: - Rheumatoid factor greater than 60 IU/ml - Plasma hemoglobin greater than 0.05 gm/dl - Bilirubin greater than 50 mg/dl - Lipids greater than 1000 mg/dl - FDP greater than 20 ug/ml 33 >100 to <200 pg/mL: likely compensated congestive heart failure (CHF) 200 to 400 pg/mL: likely moderate CHF >400 pg/mL: likely moderate to severe CHF [place] [facility] 34 Because ethnic data is not always readily available, this report includes an eGFR for both -Americans and non- Americans. The National Kidney Disease Education Program (NKDEP) does not endorse the use of the MDRD equation for patients that are not between the ages of 18 and 70, are , have extremes of body size, muscle mass, or nutritional status, or are non- or non-. According to the National Kidney Foundation, irrespective of diagnosis, the stage of the disease is based on the level of kidney function: Stage Description GFR(mL/min/1.73 m(2)) 1 Kidney damage with normal or decreased GFR 90 2 Kidney damage with mild decrease in GFR 60-89 3 Moderate decrease in GFR 30-59 4 Severe decrease in GFR 15-29 5 Kidney failure <15 (or dialysis) 35 PT IS FASTING 36 PT IS FASTING 37 Because ethnic data is not always readily available, this report includes an eGFR for both -Americans and non- Americans. The National Kidney Disease Education Program (NKDEP) does not endorse the use of the MDRD equation for patients that are not between the ages of 18 and 70, are , have extremes of body size, muscle mass, or nutritional status, or are non- or non-. According to the National Kidney Foundation, irrespective of diagnosis, the stage of the disease is based on the level of kidney function: Stage Description GFR(mL/min/1.73 m(2)) 1 Kidney damage with normal or decreased GFR 90 2 Kidney damage with mild decrease in GFR 60-89 3 Moderate decrease in GFR 30-59 4 Severe decrease in GFR 15-29 5 Kidney failure <15 (or dialysis) 38 Desirable <150 Borderline high 150-199 High 200-499 Very High >500 39 Desirable <200 Borderline high 200-239 High >239 40 Low <40 Desirable: 40-60 High: >60 41 Desirable <100 Near Optimal 100-129 Borderline high 130-159 High 160-189 Very High >189 42 RUN DATE: 07/18/13 [facility] LAB LIVE PAGE 1 RUN TIME: [id number] [place], [place] [address] Specimen Inquiry Name: CHAN CHANDLER : [address]: Clarissa Brock MD Acct: [id number] Unit: [id number] AGE: 72 Location: [facility] Re07/17/13 SEX: F Status: REG REF SPEC: [id number] VENITA: 07/17/13-[address]: Clarissa Brock MD REQ: [id number] RECD: 07/17/13 STATUS: COMP _ SOURCE: VAGINAL [facility]: ORDERED: Affirm QUERIES: Medent Number [id number] Procedure Result Verified Site Affirm Vaginal DNA Probe Final 07/18/13- 1356 ML Organism 1 Negative Trichomonas Organism 2 POSITIVE GARDNERELLA Organism 3 Negative Alexandra The presence of G. vaginalis, although suggestive, is not diagnostic for bacterial vaginosis. Results should be interpreted in conjunction with other clinical and laboratory data available. Women with vaginal discharge should be evaluated for risk factors of cervicitis and pelvic inflammatory disease, toxic shock syndrome (S.aureus), and if present, evaluated for organisms not included in this assay such as N. gonorrhoeae, C. trachomatis, Mobiluncus, Mycoplasma and/or Prevotella. Mixed infections may occur. The performance of this test on patient specimens collected during or immediately after antimicrobial therapy is unknown. The presence or absence of Alexandra species, G. vaginalis or T. vaginalis cannot be used as a test for therapeutic success or failure. END OF REPORT * ML=Testing performed at Main Lab DEPARTMENT OF PATHOLOGY, [address] [place] [address] Rock Barbosa M.D. Director [facility] # [id number] 43 -- REFERENCE VALUE -- 25-HYDROXY D TOTAL (D2+D3) Optimum levels in the healthy population are 20-50, patients with bone disease may benefit from higher levels within this range. Test Performed by: [place] [address] Chro: Yusuf Gay III, M.D. 44 -- REFERENCE VALUE -- Cutoff: 500 45 -- REFERENCE VALUE -- Cutoff: 200 46 -- REFERENCE VALUE -- Cutoff: 200 47 -- REFERENCE VALUE -- Cutoff: 150 48 -- REFERENCE VALUE -- Cutoff: 300 49 -- REFERENCE VALUE -- Cutoff: 300 50 -- REFERENCE VALUE -- Cutoff: 300 51 This report is intended for use in clinical monitoring or management of patients. It is not intended for use in employment-related testing. 52 Test Performed by: [place] [address] Chro: Yusuf Gay III, M.D. 53 -- REFERENCE VALUE -- Cutoff: 300 54 -- REFERENCE VALUE -- Cutoff: 100 55 -- REFERENCE VALUE -- Cutoff: 100 56 -- REFERENCE VALUE -- Cutoff: 100 57 -- REFERENCE VALUE -- Cutoff: 100 58 -- REFERENCE VALUE -- Cutoff: 100 59 Positive. Discrepancy noted between immunoassay result and GC/MS result. The GC/MS result is the definitive result. This report is intended for use in clinical monitoring and management of patients. It is not intended for use in employment-related testing. Test Performed by: [address] [address] Chro: Yusuf Gay III, M.D. 60 Because ethnic data is not always readily available, this report includes an eGFR for both -Americans and non- Americans. The National Kidney Disease Education Program (NKDEP) does not endorse the use of the MDRD equation for patients that are not between the ages of 18 and 70, are , have extremes of body size, muscle mass, or nutritional status, or are non- or non-. According to the National Kidney Foundation, irrespective of diagnosis, the stage of the disease is based on the level of kidney function: Stage Description GFR(mL/min/1.73 m(2)) 1 Kidney damage with normal or decreased GFR 90 2 Kidney damage with mild decrease in GFR 60-89 3 Moderate decrease in GFR 30-59 4 Severe decrease in GFR 15-29 5 Kidney failure <15 (or dialysis) 61 HDL Interpretation: Undesirable: High Risk: Less than 40 mg/dL Desirable: Low Risk: Greater than 60 mg/dL 62 LDL Interpretation: Low Risk Optimal Level: LDL Less than 100 mg/dL Near or Above Optimal: LDL 100-129 mg/dL Borderline High Risk: LDL 130-159 mg/dL High Risk: LDL 160-189 mg/dL Very High Risk: LDL Greater than 189 mg/dL 63 -- REFERENCE VALUE -- 25-HYDROXY D TOTAL (D2+D3) Optimum levels in the normal population are 25-80 Test Performed by: [place] [address] Chro: Yusuf Gay III, M.D. 64 Less Than 1.0......Low Risk of Cardiovascular Disease 1.0-3.0............Medium Risk (<2 Fold Increase) Greater Than 3.0...High Risk (Approximately 2-Fold Increase) 65 Test Performed by: [place] [address] Chro: Yusuf Gay III, M.D. 66 Because ethnic data is not always readily available, this report includes an eGFR for both -Americans and non- Americans. The National Kidney Disease Education Program (NKDEP) does not endorse the use of the MDRD equation for patients that are not between the ages of 18 and 70, are , have extremes of body size, muscle mass, or nutritional status, or are non- or non-. According to the National Kidney Foundation, irrespective of diagnosis, the stage of the disease is based on the level of kidney function: Stage Description GFR(mL/min/1.73 m(2)) 1 Kidney damage with normal or decreased GFR 90 2 Kidney damage with mild decrease in GFR 60-89 3 Moderate decrease in GFR 30-59 4 Severe decrease in GFR 15-29 5 Kidney failure <15 (or dialysis) 67 Reference Range and Interpretation: TnI (ng/mL) Interpretation Less Than 0.06 ng/mL Not supportive of diagnosis of CT 0.06 - 0.50 ng/mL Indeterminate: suggest serial studies if clinically indicated. Greater than 0.5 ng/mL Consistent with diagnosis of CT 68 -- REFERENCE VALUE -- Cutoff: 500 69 -- REFERENCE VALUE -- Cutoff: 200 70 -- REFERENCE VALUE -- Cutoff: 200 71 -- REFERENCE VALUE -- Cutoff: 150 72 -- REFERENCE VALUE -- Cutoff: 300 73 -- REFERENCE VALUE -- Cutoff: 300 74 -- REFERENCE VALUE -- Cutoff: 300 75 This report is intended for use in clinical monitoring or management of patients. It is not intended for use in employment-related testing. 76 Test Performed by: [address] [address] Chro: Yusuf Gay III, M.D. 77 -- REFERENCE VALUE -- Cutoff: 300 78 -- REFERENCE VALUE -- Cutoff: 100 79 -- REFERENCE VALUE -- Cutoff: 100 80 -- REFERENCE VALUE -- Cutoff: 100 81 -- REFERENCE VALUE -- Cutoff: 100 82 -- REFERENCE VALUE -- Cutoff: 100 83 Positive. Discrepancy noted between immunoassay result and GC/MS result. The GC/MS result is the definitive result. This report is intended for use in clinical monitoring and management of patients. It is not intended for use in employment-related testing. Test Performed by: [address] [address] Chro: Yusuf Gay III, M.D. 84 HDL Interpretation: Undesirable: High Risk: Less than 40 MG/DL Desirable: Low Risk: Greater than 60 MG/DL 85 LDL Interpretation: Low Risk Optimal Level: LDL Less than 100 MG/DL Near or Above Optimal: LDL 100-129 MG/DL Borderline High Risk: LDL 130-159 MG/DL High Risk: LDL 160-189 MG/DL Very High Risk: LDL Greater than 189 MG/DL 86 Because ethnic data is not always readily available, this report includes an eGFR for both -Americans and non- Americans. The National Kidney Disease Education Program (NKDEP) does not endorse the use of the MDRD equation for patients that are not between the ages of 18 and 70, are , have extremes of body size, muscle mass, or nutritional status, or are non- or non-. According to the National Kidney Foundation, irrespective of diagnosis, the stage of the disease is based on the level of kidney function: Stage Description GFR(mL/min/1.73 m(2)) 1 Kidney damage with normal or decreased GFR 90 2 Kidney damage with mild decrease in GFR 60-89 3 Moderate decrease in GFR 30-59 4 Severe decrease in GFR 15-29 5 Kidney failure <15 (or dialysis) 87 Desirable: Less than 200 MG/DL Borderline-High Risk: 200-239 MG/DL High-Risk: 240 MG/DL and over 88 HDL Interpretation: Undesirable: High Risk: Less than 40 MG/DL Desirable: Low Risk: Greater than 60 MG/DL 89 LDL Interpretation: Low Risk Optimal Level: LDL Less than 100 MG/DL Near or Above Optimal: LDL 100-129 MG/DL Borderline High Risk: LDL 130-159 MG/DL High Risk: LDL 160-189 MG/DL Very High Risk: LDL Greater than 189 MG/DL 90 Test Performed by: [place] [id number] Chro: Yusuf Gay III, M.D. 91 CHOLESTEROL INTERPRETATION: Desirable: Less than 200 MG/DL Borderline-High Risk: 200-239 MG/DL High-Risk: 240 MG/DL and over 92 HDL INTERPRETATION: Undesirable: High Risk: Less than 40 MG/DL Desirable: Low Risk: Greater than 60 MG/DL 93 LDL INTERPRETATION: Low Risk Optimal Level: LDL Less than 100 MG/DL Near or Above Optimal: LDL 100-129 MG/DL Borderline High Risk: LDL 130-159 MG/DL High Risk: LDL 160-189 MG/DL Very High Risk: LDL Greater than 189 MG/DL 94 Anion gap measurement may be of limited value in the presence of any alkalosis, especially in a combined acid base disorder. . 95 A metabolite of Naproxen, O-desmethylnaproxen, has been shown to interfere with the [place] method for measuring total bilirubin. Samples from patients who have taken Naproxen have shown spurious elevation in total bilirubin levels. 96 Because ethnic data is not always readily available, this report includes an eGFR for both -Americans and non- Americans. The National Kidney Disease Education Program (NKDEP) does not endorse the use of the MDRD equation for patients that are not between the ages of 18 and 70, are , have extremes of body size, muscle mass, or nutritional status, or are non- or non-. According to the National Kidney Foundation, irrespective of diagnosis, the stage of the disease is based on the level of kidney function: Stage Description GFR(mL/min/1.73 m(2)) 1 Kidney damage with normal or decreased GFR 90 2 Kidney damage with mild decrease in GFR 60-89 3 Moderate decrease in GFR 30-59 4 Severe decrease in GFR 15-29 5 Kidney failure <15 (or dialysis) 97 Lymphopenia % 98 Please note: New reference range, effective 02/24/11 NORMAL REFERENCE RANGE: GREATER THAN 4.1 NG/ML 99 Anion gap measurement may be of limited value in the presence of any alkalosis, especially in a combined acid base disorder. . 100 Because ethnic data is not always readily available, this report includes an eGFR for both -Americans and non- Americans. The National Kidney Disease Education Program (NKDEP) does not endorse the use of the MDRD equation for patients that are not between the ages of 18 and 70, are , have extremes of body size, muscle mass, or nutritional status, or are non- or non-. According to the National Kidney Foundation, irrespective of diagnosis, the stage of the disease is based on the level of kidney function: Stage Description GFR(mL/min/1.73 m(2)) 1 Kidney damage with normal or decreased GFR 90 2 Kidney damage with mild decrease in GFR 60-89 3 Moderate decrease in GFR 30-59 4 Severe decrease in GFR 15-29 5 Kidney failure <15 (or dialysis) 101 Recommended INR for Patients on Oral Anticoagulants Prophylaxis 2.0 - 3.0 Treatment of thrombosis 2.0 - 3.0 Prevention of embolism 2.0 - 3.0 Prevention of embolism from prosthetic heart valves 2.5 - 3.5 102 DIAGNOSIS,TREATMENT,AND THERAPY MUST BE BASED ON THE INR VALUE ALONE. Procedures Date CPT Code Description Status Comment 04/11/2017 93982 EKG Tracing & Interpretation Completed 02/23/2017 04578 EKG Tracing & Interpretation Completed 02/23/2017 19995 EKG Tracing & Interpretation Completed 02/15/2017 05386 EKG, Interpretation Only Completed 02/14/2017 59146 Intravasc.Blood Flow-Ea.Addtl Completed Ves 02/14/2017 94298 Intravascular Blood Flow Completed Velocity 02/14/2017 57739 Cath PLMT&NJX L Ventriculog Completed Img S&I 02/14/2017 61454 EKG, Interpretation Only Completed 02/14/2017 71611 Percutaneous Transcatheter Completed Placement Of Intracoronary Stent 01/23/2017 96662 EKG Tracing & Interpretation Completed 01/13/2017 02742 Treadmill Interp/Report Only Completed 01/13/2017 64890 Stress Test Supervsn W/Out I/R Completed 12/20/2016 28181 ECHO Transthoracic, Real-Time 2D Completed With Doppler And Color Flow 12/15/2016 59243 EKG Tracing & Interpretation Completed 11/21/2016 72452 EKG Tracing & Interpretation Completed 07/11/2016 45600 EKG Tracing & Interpretation Completed 07/06/2016 Diabetic Retinal Eye Exam Completed Document: 07/06/16 - Consult Ophthalmology/Ren 04/21/2016 Mammogram Completed 09/09/2015 55301 EKG Tracing & Interpretation Completed 05/27/2015 64510 EKG Tracing & Interpretation Completed 05/18/2015 Diabetic Retinal Eye Exam Completed 05/15/2015 30597 Inject/Drain Joint/Bursa Major Completed 05/14/2015 Diabetic Retinal Eye Exam Completed Document: 05/14/15 - Consult Ophthalmology/[place] 04/07/2015 48269 EKG Tracing & Interpretation Completed 03/26/2015 Bone Mineral Density Test Completed 03/26/2015 Mammogram Completed 12/03/2014 25400 EKG Tracing & Interpretation Completed 10/03/2014 95284 Xray Knee 3 Views Completed 09/16/2014 57874 Cath PLMT&NJX L Ventriculog Completed Img S&I 09/11/2014 76409 EKG Tracing & Interpretation Completed 09/09/2014 37323 Diffusing Capacity Completed 09/09/2014 41615 Plethysmography Determination Completed Lung Volumes & Per Airway Resist 09/09/2014 57446 Pulmonary Completed Function><Bronchodil 08/12/2014 44696 ECG Monitor/Recording W/Visual Completed Superimposition Scanning 08/12/2014 61450 Holter Monitor Review (24 hr)dr Completed review & interp only 08/07/2014 58498 ECG Monitor/Recording W/Visual Completed Superimposition Scanning 08/07/2014 20826 Holter Monitor Review (24 hr)dr Completed review & interp only 07/24/2014 55348 ECHO Transthoracic, Real-Time 2D Completed With Doppler And Color Flow 07/14/2014 73924 EKG Tracing & Interpretation Completed 06/27/2014 08443 EKG, Interpretation Only Completed 03/28/2014 18629 Xray Knee 3 Views Completed 03/04/2014 19953 TKR Total Knee Replacement Completed 03/04/2014 17659 TKR Total Knee Replacement Completed 01/27/2014 36351 EKG Tracing & Interpretation Completed 01/02/2014 Diabetic Retinal Eye Exam Completed 11/29/2013 28663 Inject/Drain Joint/Bursa Major Completed 11/22/201389279 Inject/Drain Joint/Bursa Major Completed 11/15/201385548 Inject/Drain Joint/Bursa Major Completed 10/23/2013 54652 Myocardial Perfusion Imaging Completed Tomographic (Spect) Multiple Studies 10/23/2013 41218 Stress Test Completed 10/03/2013 42124 EKG Tracing & Interpretation Completed 09/27/2013 14888 Xray Knee 3 Views Completed 09/27/2013 63015 Rad Exam; Knee, Ap&L Completed 09/27/2013 41683 Rad Exam; Hip Unilat Comp Completed 09/27/2013 99079 Rad Exam; Pelvis Completed 05/20/2013 Mammogram Completed 05/20/2013 02757 EKG Tracing & Interpretation Completed 08/25/2012 11947 Myocardial Perfusion Imaging Completed Tomographic (Spect) Multiple Studies 08/25/2012 19087 Stress Test Supervsn W/Out I/R Completed 08/25/2012 98477 Treadmill Interp/Report Only Completed 07/20/2012 17041 EKG Tracing & Interpretation Completed 02/03/2012 98485 EKG Tracing & Interpretation Completed 01/31/2012 29466 Stress Test Supervsn W/Out I/R Completed 01/31/2012 33477 Treadmill Interp/Report Only Completed 01/31/2012 15202 Stress ECHO Completed Interpretation/Report Hospital 01/20/2012 64899 ECHO Transthoracic, Real-Time 2D Completed With Doppler And Color Flow 01/20/2012 14227 EKG Tracing & Interpretation Completed 01/02/2012 Mammogram Completed 11/17/2011 14384 Rad Shoulder Comp, Min. 2 Views Completed 09/14/2011 Bone Mineral Density Test Completed 08/30/2011 71008 Left Health Catheterization Completed W/Inj For Left Ventriculography,S&I 08/30/2011 48286 Cath PLMT&NJX L Ventriculog Completed Img S&I 08/30/2011 08538 Left Heart Cath. Incl S/I Completed Coronaries, Angio S/I V Gram If Done 08/25/2011 73511 EKG Tracing & Interpretation Completed 03/06/2009 Colonoscopy Completed benign polyp ( per pt ) repeat due in 5 yrs Encounters Type Date Location Provider CPT E/M Dx Office Visit 04/25/2017 [facility] Millie Luis, 22126 I25.119 11:30a [employer] N.P. I10 I44.7 R06.00 E78.00 R06.02 Office Visit 04/11/2017 1:20p [facility] Gonzalo Canales, 46193 I25.119 Allison I10 I44.7 R06.00 E78.00 E78.5 R06.02 Office Visit 02/23/2017 2:00p [facility] SIVA Garcia 10157 I10 R06.00 I25.10 I97.610 Office Visit 02/15/2017 8:52a [facility] Justin Chatterjee, 41871 I25.119 [facility] [facility] [place] [facility] [place], FSCAI Office Visit 02/07/2017 9:00a [facility] SIVA Jones 53377 I25.119 [employer] I10 R06.00 Office Visit 12/23/2016 1:30p [facility] SIVA Jones 75416OFE R06.00 E66.01 I10 I25.10 Z68.41 Office Visit 12/15/2016 1:40p [facility] Gonzalo Canales, 97615 R06.00 M.D. E66.01 I10 I25.10 E11.9 Office Visit 11/21/2016 10:40a [facility] Gonzalo Canales, 07753 R06.00 M.D. E66.01 I10 R42 I25.10 Office Visit 08/10/2016 10:00a [facility] SIVA Jones 70302BQX R06.00 E66.01 I10 Office Visit 07/11/2016 2:40p [facility] Gonzalo Canales, 22389 R06.00 M.D. E66.01 R42 I10 I25.10 Office Visit 02/01/2016 11:45a Neurosurgery Services Spencer Albarado, 74484 M47.22 Of [facility] Allison Office Visit 01/20/2016 1:00p [facility] Internal Medicine - Clarissa Brock, 42789 M48.02 Sai Cooper L85.3 Office Visit 10/09/2015 11:00a [facility] Of Tracy Figueroa M.D. 53523 Z96.651 C.M.AMili Office Visit 10/01/2015 10:30a [facility] SIVA Jones 10122 I10 [facility] E66.01 R07.9 Office Visit 09/09/2015 3:40p [facility] Gonzalo Canales M.D. 80673 R07.9 I10 R06.00 E66.01 Office Visit 08/24/2015 8:10a [facility] Internal Medicine Clarissa Brock, 96776 R22.32 - Arianna Cooper R07.9 Office Visit 06/30/2015 10:15a [facility] Nurse Visit 15276 I10 Office Visit 06/12/2015 2:30p [facility] SIVA Jones 58302QYN I10 R07.9 R06.00 E66.01 Z68.41 Office Visit 05/27/2015 8:20a [facility] Gonzalo Canales M.D. 84651 R07.9 I10 R94.31 R06.00 Office Visit 05/21/2015 10:50a [facility] Internal Medicine Clarissa Brock M.D. 72641 R07.9 - Arianna M85.862 I10 Office Visit 05/15/2015 11:20a Orthopedic Services Fouzia Steinyukisilke, 99364 S43.421A Of Charlie COULTER-C Office Visit 04/30/2015 11:50a [facility] Internal Medicine Clarissa Brock 65579 B35.9 - Arianna Cooper Office Visit 04/07/2015 10:30a [facility] Of Gonzalo Grady 12641 M25.511 Eve Canales M.D. R94.31 I10 I25.42 R07.9 E66.9 Office Visit 03/19/2015 9:10a [facility] Internal Medicine Clarissa Brock 75135 Z00.01 - Arianna Cooper K22.4 F41.9 R21 Z12.31 M85.89 Z86.010 M25.511 R53.83 Office Visit 12/03/2014 3:30p [facility] SIVA Jones 51269 K22.4 G47.33 I25.10 E11.9 Z01.810 Office Visit 11/20/2014 9:50a [facility] Internal Medicine Clarissa Brock 83526 715.98 - Arianna Cooper 530.5 696.8 686.9 Office Visit 11/06/2014 1:30p [facility] SIVA Jones 62137 327.23 786.05 530.5 414.01 250.00 786.50 Office Visit 10/14/2014 10:45a [facility] Sourav Bernal M.D. 41707 327.23 Services Of [facility] 786.05 Office Visit 10/03/2014 11:00a [facility] Of Tracy Figueroa M.D. 04814 V67.09 [facility] 715.96 V43.65 Office Visit 09/22/2014 2:00p [facility] Justin Chatterjee, 14156 530.5 [employer] [place] [facility] [place], FACC, FSCAI Office Visit 09/11/2014 1:40p [facility] Gonzalo Canales, 51030 327.23 Eve M.DMili 786.05 786.50 414.01 250.00 244.8 278.01 429.9 Office Visit 08/20/2014 2:30p [facility] SIVA Jones 08583 327.23 786.05 786.50 414.01 250.00 244.8 278.01 429.9 Office Visit 08/18/2014 11:30a [facility] Sourav Bernal M.D. 90406 786.05 Services Of [facility] 327.23 Office Visit 08/13/2014 10:50a [facility] Internal Medicine Clarissa Brock 31219 786.50 - Arianna Cooper 300.00 715.18 Office Visit 07/15/2014 12:10p [facility] Internal Medicine Clarissa Brock M.D. 11857 465.9 - [place] 300.00 Office Visit 07/14/2014 3:40p [facility] Gonzalo Canales, 99429 300.00 M.DMili 414.00 786.50 250.00 786.09 Office Visit 07/01/2014 10:30a [facility] Internal Medicine Clarissa Brock 29226 414.00 - Arianna Cooper 300.00 518.89 V12.69 Office Visit 06/27/2014 9:45a [facility], Ethan Brennan M.D. 58067 414.00 Hospitalists 780.50 780.79 272.4 Office Visit 06/26/2014 9:44a [facility], Millie Luis 22559 414.00 Hospitalists N.P. 786.50 780.79 272.4 Office Visit 06/26/2014 10:50a [facility] Internal Medicine Clarissa Brock 93742 300.00 - Arianna Cooper 786.50 Office Visit 05/22/2014 10:50a [facility] Internal Medicine Clarissa Brock 95409 715.18 - Arianna Cooper 300.00 V03.82 Office Visit 03/31/2014 12:10p [facility] Internal Medicine Clarissa Brock 02827 V45.89 - Arianna Cooper 300.00 251.1 333.94 Office Visit 03/07/2014 10:10a [facility], Rocío Smith, N.P. 93322 414.00 Hospitalists 244.9 250.00 401.9 Office Visit 03/06/2014 10:10a [facility], Rocío Smith N.P. 79117 414.00 Hospitalists 250.00 244.9 401.9 Office Visit 03/05/2014 10:09a [facility], Rocío Smith N.P. 09395 414.00 Hospitalists 244.9 250.00 401.9 Office Visit 03/04/2014 10:08a [facility], Rocío Smith, N.P. 51753 414.00 Hospitalists 244.9 250.00 401.9 Office Visit 02/11/2014 10:10a [facility] Internal Medicine Clarissa Brock 71002 V72.84 - Arianna Cooper 715.96 250.00 414.01 426.3 272.0 424.1 579.0 244.8 300.00 268.9 278.01 311 327.23 530.81 Office Visit 01/27/2014 11:00a [facility] Gonzalo Canales 47193 414.01 Allison 426.3 272.0 424.1 Office Visit 01/09/2014 1:15p Orthopedic Services Yoni Louis 54521 715.96 Of Abbey Garcia Office Visit 12/18/2013 12:10p [facility] Internal Clarissa Vinod 01844 715.96 Jenna Keller Office Visit 11/07/2013 11:30a [facility] SIVA Jones 63057ECY 414.01 401.1 426.3 272.0 Office Visit 10/11/2013 10:30a [facility] Of Tracy Figueroa M.D. 88290 715.96 Charlie Office Visit 10/03/2013 11:00a [facility] SIVA Jones 13957 719.46 414.01 401.1 272.0 786.50 426.3 424.1 Office Visit 09/27/2013 1:15p [facility] Of Tracy Figueroa M.D. 49347 715.96 C.M.AMili 715.95 Office Visit 09/24/2013 10:30a [facility] Internal Medicine Clarissa Brock 06417 719.46 - Arianna Cooper 715.96 Office Visit 09/17/2013 11:50a [facility] Internal Medicine Clarissa Brock 89291 300.00 - Arianna Cooper 715.09 Office Visit 07/17/2013 2:10p [facility] Internal Medicine Clarissa rBock M.D. 63986 V70.0 - Arianna 300.00 715.09 623.5 v72.31 Office Visit 07/09/2013 1:30p [facility] SIVA Jones 09756 414.01 401.1 272.0 Office Visit 06/05/2013 1:50p [facility] Internal Medicine Clarissa Brock 91789 300.00 - Arianna Cooper Office Visit 05/28/2013 10:30a [facility] Internal Medicine Clarissa Brock 85896 300.00 - Arianna Cooper 715.09 268.9 Office Visit 05/20/2013 2:20p [facility] Gonzalo ButchMili Canales 55381 414.01 Allison 715.09 401.1 272.0 Office Visit 02/21/2013 11:50a [facility] Internal Medicine Clarissa Brock 90576 715.09 - Arianna Cooper 300.00 682.9 Office Visit 11/19/2012 10:50a [facility] Internal Medicine Clarissa Brock M.D. 58233 703.0 - Arianna 721.0 Office Visit 09/27/2012 10:10a [facility] Internal Medicine - Clarissa Brock 65946 728.71 Arianna Cooper Office Visit 09/21/2012 2:20p Neurosurgery Services Brady Viera, 11481 721.0 Of Eve Cooper 723.1 Office Visit 09/04/2012 3:10p [facility] Internal Jenna Brock M.D. 69189 723.1 - Arianna 784.0 Office Visit 08/25/2012 10:15a [facility] Miguel Solares, 33945 414.01 M.DMili 794.31 401.1 786.50 426.3 786.05 V45.82 Office Visit 08/25/2012 3:32p [facility], Ethan Brennan M.D. 76676 786.50 Hospitalists 414.02 784.92 401.9 Office Visit 08/24/2012 3:31p [facility], Joellen Andrews, 71250 786.50 Hospitalists 414.02 784.92 401.9 Office Visit 08/07/2012 9:50a [facility] Internal Medicine Clarissa Brock 58288 715.09 - Arianna Cooper 300.00 285.8 268.9 Office Visit 07/20/2012 2:00p [facility] Gonzalo Canales M.D. 41721 696.1 272.2 414.01 278.01 Office Visit 04/09/2012 9:50a [facility] Internal Medicine Clarissa Brock 03953 715.09 - Arianna Cooper 696.1 v04.89 272.2 Office Visit 02/07/2012 10:30a [facility] Internal Medicine Clarissa Brock 30067 715.09 - Arianna Cooper 272.2 285.8 Office Visit 02/03/2012 2:00p [facility] Nurse Visit 43322 426.3 414.01 786.50 Office Visit 01/31/2012 10:30a [facility] Gonzalo Canales 65673 786.50 M.DMili 786.09 426.3 414.01 278.01 Office Visit 01/20/2012 9:30a [facility] Gonzalo Canales 77355 278.01 M.DMili 794.31 426.3 414.0 Office Visit 01/10/2012 9:50a [facility] Internal Medicine Clarissa Brock 61921 715.09 - Arianna Cooper 783.1 244.8 788.33 V03.82 Office Visit 11/17/2011 10:00a Orthopedic Services Of Jerrod Hoang M.D. 86574 726.10 C.M.AMili 721.1 Office Visit 10/25/2011 10:00a [facility] At Deana Murcia, 93959 414.01 [facility] 401.1 272.2 Office Visit 10/10/2011 9:30a [facility] Internal Medicine Clarissa Brock, 18465 733.90 - Arianna Cooper 518.89 300.00 579.0 244.8 V76.19 Office Visit 09/12/2011 9:45a [facility] Internal Medicine Clarissa Brock, 08839 250.02 - Arianna Cooper 579.0 268.9 272.2 401.9 518.89 726.19 244.8 Office Visit 09/02/2011 1:20p [facility] S[facility], 91731 414.01 M.DMili 401.1 V45.82 272.2 Office Visit 08/30/2011 11:30a [facility] S. [place], 55523 794.31 M.D. 786.50 414.01 401.1 V45.82 Office Visit 08/26/2011 2:40p [facility] S. Anahi, 85886 414.0 M.D. 272.2 401.1 250.02 V45.82 Office Visit 08/25/2011 11:20a [facility] Gonzalo Canales, 11784 250.02 M.DMili 401.1 414.0 579.0 Office Visit 08/18/2011 10:00a [facility] Internal Medicine Clarissa Brock, 85101 250.02 - Arianna Cooper 401.1 414.0 579.0 715.80 518.89 272.2 285.8 244.8 Plan of Care Future Appointment(s):07/18/2017 9:10 am - Clarissa Brock M.D. at [facility] Internal Medicine [facility]06/02/2017 - Tracy Figueroa M.D.M25.561 Pain in right kneeFollow up:Follow up: 2-3 wwlyhI00.651 Presence of right artificial knee joint
[2017-06-26 16:56] VITALS: BP 148/56
[2017-06-26] MEDS ORDERED: Ondansetron ODT TAB* 4 MG PO ONE (17:20)
--- NOTE | 2017-06-26 17:24 | UC ---
Respiratory Complaint HPI - HPI Summary HPI Summary: Pt presents with c/o cough nasal congestion, cough, generalized malaise, nausea X 3 days. - History of Current Complaint Chief Complaint: UCGeneralIllness Stated Complaint: FLU LIKE SYMPTOMS Time Seen by Provider: 06/26/17 17:05 Hx Obtained From: Patient Hx Last Menstrual Period: 1975 ?: No Onset/Duration: Sudden Onset, Lasting Days, Still Present, Worse Since - onset Timing: Constant Severity Initially: Mild Severity Currently: Moderate Pain Intensity: 0 Aggravating Factors: Deep Breaths, Recumbent Position Alleviating Factors: Nothing Associated Signs And Symptoms: Positive: Dizziness, URI, Nasal Congestion - Risk Factors Pulmonary Embolism Risk Factors: Negative Cardiac Risk Factors: Hypertension, Diabetes, CAD Pseudomonas Risk Factors: Negative Tuberculosis Risk Factors: Diabetes - Allergies/Home Medications Allergies/Adverse Reactions: Allergies Allergy/AdvReac Type Severity Reaction Status Date / Time cephalexin Allergy Intermediate Rash Verified 06/26/17 17:02 iodine Allergy Intermediate Swelling Verified 06/26/17 17:02 nickel Allergy Mild Rash Verified 06/26/17 17:02 atorvastatin Allergy See Comment Verified 06/26/17 17:03 gluten AdvReac Abdominal Verified 06/26/17 17:04 Pain MS Gluten Meal [Gluten Meal] AdvReac Abdominal Verified 01/25/16 15:43 Pain adhesive Allergy Rash And Uncoded 01/25/16 15:43 Itching contrast dye Allergy Swelling Uncoded 01/25/16 15:43 Of Face,Lips,& Throat, TONGUE PMH/Surg Hx/FS Hx/Imm Hx Previously Healthy: No Endocrine History: Diabetes, Dyslipidemia Cardiovascular History: Cardiac Disease, Hypertension - Surgical History Surgical History: Yes Surgery Procedure, Year, and Place: stents placed - 06/07/2010 - [facility]: MRI CONDITIONAL ,SPATIAL GRADIENT 1.5T TO 3.0 T : 720 GAUSS/CM, NORMAL MODE; MULTILINK TETRA - CONDITIONAL UP TO 3.0T MAX SPAT.GRAD 3.3T/METER - INFORMATION IS IN PT'S EMR - UNDER "IMPLANT INFORMATION -DATED 03/04/14. New stent placed in February 2018. Lt ankle fx repair,. gallbladder and hysterectomy 1975,. TOTAL RT KNEE REPLACEMENT 2013. CATARACT. Rt EYE - CORRECTIVE MUSCLE - Family History Known Family History: Positive: Cardiac Disease - Social History Occupation: Retired Lives: With Family Alcohol Use: None Substance Use Type: None Substance Use Comment - Amount & Last Used: for chronic back pain Smoking Status (MU): Former Smoker Type: Cigarettes Amount Used/How Often: 1/pck day Length of Time of Smoking/Using Tobacco: 50+ Have You Smoked in the Last Year: No When Did the Patient Quit Smoking/Using Tobacco: 2012 - Immunization History Most Recent Influenza Vaccination: 2017 Most Recent Tetanus Shot: unknown Most Recent Pneumonia Vaccination: 2011 Review of Systems Constitutional: Fatigue Skin: Negative Eyes: Negative ENT: Sore Throat, Sinus Congestion Respiratory: Cough Cardiovascular: Negative Gastrointestinal: Nausea Genitourinary: Negative Motor: Negative Neurovascular: Negative Musculoskeletal: Myalgia Neurological: Negative Psychological: Negative Is Patient Immunocompromised?: No All Other Systems Reviewed And Are Negative: Yes Physical Exam Triage Information Reviewed: Yes Appearance: Ill-Appearing Vital Signs: Initial Vital Signs Temp 98.2 F 06/26/17 16:48 Pulse 55 06/26/17 16:48 Resp 16 06/26/17 16:48 BP 148/56 06/26/17 16:48 Pulse Ox 99 06/26/17 16:48 Vital Signs Reviewed: Yes Eye Exam: Normal ENT Exam: Other ENT: Positive: Nasal congestion Dental Exam: Normal Neck exam: Normal Respiratory: Positive: Decreased breath sounds - bases Cardiovascular: Positive: Murmur:Sys:Grade _?_/ Musculoskeletal Exam: Normal Neurological Exam: Normal Psychological Exam: Normal Skin Exam: Normal UC Diagnostic Evaluation - Laboratory O2 Sat by Pulse Oximetry: 99 Respiratory Course/Dx - Differential Dx/Diagnosis Differential Diagnosis/HQI/PQRI: Bronchitis, Influenza, Other - pneumonia Provider Diagnoses: Bronchitis. nausea Discharge - Sign-Out/Discharge Documenting (check all that apply): Discharge/Admit/Transfer - Discharge Plan Condition: Stable Disposition: HOME Prescriptions: Benzonatate CAP* [Tessalon 100 MG CAP*] 100 mg PO Q8H PRN #30 cap PRN Reason: Cough Cetirizine* [ZyrTEC 10 MG TAB*] 10 mg PO DAILY #10 tab DOXYcycline CAP(*) [DOXYcycline 100MG CAP(*)] 100 mg PO Q12H #20 cap Ondansetron TAB* [Zofran 4 MG Tab*] 4 mg PO Q6H PRN #20 tab PRN Reason: Nausea Patient Education Materials: Acute Bronchitis (ED), Managing Diabetes During Sick Days (ED) Referrals: Clarissa Brock MD [Primary Care Provider] - If Needed - Billing Disposition and Condition Condition: STABLE Disposition: HOME
== END 2017-06-26 17:37 | disposition home or self-care (01) ==
LOC: UCCORT 16:17
DX: J40 Bronchitis, not specified as acute or chronic (principal); R11.0 Nausea; Z87.891 Personal history of nicotine dependence; Z88.8 Allergy status to other drugs, medicaments and biological substances; Z88.3 Allergy status to other anti-infective agents; Z91.041 Radiographic dye allergy status
CPT/HCPCS: 99212; A9270-GY; G0463

== ENCOUNTER 2017-07-23 10:46 | Emergency (ER) | payer MEDICARE ==
--- OUTSIDE RECORDS SUMMARY | 2017-07-23 11:00 | XMS REPORT ---
:1940 External Reference #:[id number] Author Organization [facility] Address [address] [address] Phone [phone] Care Team Providers Name Role Phone Clarissa Brock MD Primary Care Physician Unavailable Payers Type Date Identification Numbers Payment Provider Subscriber Medicare Primary Effective: Policy Number: Medicare Chan Chandler 2008 [id number] PayID: [id number] [address] [place] [address] Medigap Part B Effective: Policy Number: [facility] Chan Martinez 2014 [id number] [facility] Ramesh PayID: [id number] [address] [place] [address] Medigap Part B Expires: 2014 Policy Number: [employer] Chan Chandler [id number] PayID: [id number] [address] [address] [place] [address] Advance Directives Type Date Description Status Comment [...] at C5/C6 Onset: 05/22/2014 Chronic anxiety Clarissa Borck M.D. Active Onset: 05/22/2014 Former heavy tobacco [...] (2011) Lives With Alone Occupation Retired Occupation [employer] Cigarette Use Pack Years - 52 Cigarette [...] children, 1 daughter of cancer. lived in [place] for 3 years. relocated back to [place] 5.12. Allergies, Adverse Reactions, Alerts Date Description Reaction Status Severity Comments 08/25/2011 Cephalexin rash active 08/25/2011 Iodine skin irritation active 08/25/2011 contrast dye tongue swelling active 04/09/2012 Adhesive active 04/09/2012 Nickel active 05/16/2012 Lipitor cramps on 80mg . tolerates 20 mg active 08/18/2011 NKDA inactive Medications Medication Date Status Form Strength Qnty SIG Indications Ordering Provider Spironolactone 06/05 Active Tablets 25mg 90tab 1 by mouth s every day Miguel A Canales M.D. Diovan 05/26 Active Tablets 80mg 90tab 1 by mouth s every day Miguel A Canales M.D. Nitro-Dur 04/26 Active Patches 0.1mg/HR 30uni apply 1 patch Millie S. 24HR ts daily for 12 Foster, hours and N.P. remove at bedtime. Plavix 04/11 Active Tablets 75mg 90tab 300 mg day 1 s and then 1 tab F. (75 mg) by Parker mouth every M.D. day Cardizem CD 01/16 Active Caps ER 120mg 180ca 1 by mouth 24HR ps twice a day Miguel A Canales M.D. Compression 11/15 Active Misc 1Pair 30-40 mm hg Clarissa Stockings as needed Allison Brock Rosuvastatin 03/24 Active Tablets 20mg 45tab take 03/07han Calcium s tablet by F. mouth every Mauser, day M.DMili Blood Pressure 06/11 Active Misc 1unit dispense 1 as I10 Gonzalo Monitor Auto s directed Miguel A Canales M.D. Fluocinolone 09/24 Active Solution 0.01% 60cc apply topical Joellen Acetonide to scalp, as Varn, needed (pt is N.P. not using) Tramadol HCL 11/24 Active Tablets 50mg 90tab 1-2 by mouth M19.90 Sergio Nancy s every 8 hours Lisa, a day as M.D. needed for pain Pantoprazole 11/20 Active Tablets 40mg 60tab 1 By Mouth K22.[address] ya Daily Allison Brock Carvedilol 09/11 Active Tablets 6.25mg 360ta 2 tab by mouth Gonzalo bs each in the F. morning and 2 Mauser, by mouth each M.D. evening Cymbalta 07/15 Active Caps 30mg 90cap 1 by mouth Sergio Cruz Part s every morning Allison Gonzalez Levothyroxine 01/27 Active Tablets 137mcg 1 by mouth Clarissa Sodium every day Allison Brock Aspirin Ec Active Tablets 81mg 90tab 1 tablet Unknown Lo-Dose / DR ya daily. Iron Active Tablets 325(65Fe) 180ta 1 po bid Unknown /0000 mg bs Novolog Active Solution 100Unit/M 1bott [...] Active Capsules 2000Unit 1 by mouth Unknown every day Clopidogrel Active Tablets 75mg 1 by mouth Unknown Bisulfate every day Diovan 05/26 Hx Tablets 40mg 90tab 1 by mouth s every day F. - (take with 80 Mauser, 06/04 mg tab) M.DMili /2017 Rosuvastatin 09/29 Hx 20 90uni Take 2 Gonzalo ts Tablet By F. 20Mgtablets - Mouth Every Mauser, 03/24 Day M.D. Isosorbide 06/11 Hx Tablets 30mg 90tab 1 by mouth R07.9 Gonzalo Mononitrate ER /2015 ER 24HR s every day F. - Mauser, 02/06 M.D. Diovan 05/26 Hx Tablets 40mg 90tab 1 by mouth s twice every F. - day Mauser, 05/25 M.D. Cardizem CD 05/26 Hx Caps ER 240mg 90cap 1 by mouth 24HR s every day F. - Mauser, 01/16 M.D. Clotrimazole/Be 04/30 Hx Cream 1-0.05% 90gm apply to B35.9 Clarissa tamethasone affected area Vinod Dipropionate - on the M.D. 12/14 affected areas twice a day x 10 days, pt [...] 715.98 Clarissa ER 24HR s needed for Vinod - pain M.D. 11/24 Nitro-Dur 08/20 Hx Patches 0.2mg/HR 30uni 1 patch every R07.9 Gonzalo 24HR ts day on in the F. - in the Mauser, 06/11 morning, off M.D. at night Tramadol HCL 08/13 Hx Tablets 50mg 90tab 1 by mouth 715.18 s every 8 hrs a Vinod, - [...] Tablets 5mg 15tab 1 tab by mouth Tracy s three times a Henry, - day as needed M.D. 01/26 muscle spasm Metronidazole 07/18 Hx Gel 0.75% 1unit apply s intravaginally Vinod, - once a day x 7 M.D. Bupropion HCL 07/17 Hx Tablets 150mg 90tab 1 by mouth Clarissa ER (XL) ER 24HR s every other Vinod, - day X 2 wks M.D. 06/26 then 1 tab /2014 every 2 days X 2 wks then 1 tab every 3 days then 1 tab every 4 days X 1 wk Oxycodone-Aceta 05/28 Hx Tablets 2.5-325mg 120ta 1-2 tab twice 715.09 Clarissa min bs a day as Vinod, - needed for M.D. 12/18 pain Duloxetine HCL 05/[address] 30mg 30cap 1 by mouth 300.00 Part s every day Tasia Brock M.DMili 07/08 Crestor 05/20 Hx Tablets 20mg 90tab 1/2 by mouth Gonzalo s every day Miguel A Canales 09/30 M.D. Mupirocin 02/21 Hx Ointment 2% 22gm apply on 682.9 affected area Vinod, twice daily M.D. for 10 days Sulfamethoxazol 11/19 Hx Tablets 800-160mg 20tab 1 po bid 703.0 Clarissa e/Trimethoprim s AARON Brock M.DMili 02/21 Cardizem CD 10/09 Hx Caps ER 240mg 90cap 1 by mouth Gonzalo 24HR s every day Miguel A Canales 07/29 M.D. Ergocalciferol 09/12 Hx Capsules [id number] 8caps 1 tab by mouth Clarissa every week Tasia Brokc M.DMili 11/19 Oxycodone/Aceta 08/07 Hx Tablets 2.5-325mg 120ta 1-2 tab twice 715.09 Clarissa minophen bs a day as Vinod, - needed for M.D. 05/28 pain Bupropion HCL 08/07 Hx Tablets 150mg 90tab 1 po qd 300.00 Clarissa XL ER 24HR s Tasia Brock M.D. 05/28 Crestor 07/20 Hx Tablets 20mg 90tab 1 po qd s MiguelA Canales, 05/20 M.D. Nitroglycerin 07/20 Hx Solution 0.4mg/Spr 1unit 1 spray under Gonzalo Lingual ay s tongue prn F. - chest pain Parker, 11/07 M.D. Atorvastatin 02/12 Hx Tablets 20mg 30tab 1 po qd Gonzalo Calcium s Miguel A Canales, 07/20.D. Cardizem CD 01/30 Hx Caps ER 120mg 180ca 2 po qd 24HR ps Miguel A Canales, 10/09.D. Atorvastatin 01/19 Hx Tablets 10mg 100ta 1 po qd Gonzalo Calcium bs Miguel A Canales, 02/12.D. Dapsone 01/09 Hx Tablets 100mg 90tab 2 po weekly s prn - 07/20 Oxycodone/Aceta 01/09 Hx Tablets 2.5-325mg 90tab 1 tab every 8 715.09 Clarissa minophen s hrs as needed Tasia Brock M.D. 08/07 Alprazolam 10/09 Hx Tablets 0.25mg 10tab 1 tab by mouth 300.00 Clarissa s as needed Tasia Brock M.D. 07/17 Ergocalciferol 09/11 Hx Capsules [id number] 6caps 1 tab by mouth 268.9 Clarissa every week Tasia Brock M.D. 01/09 Calcium 600 09/11 Hx Tablets 600mg 60tab 1 tab by mouth 268.9 Clarissa s twice a day Vinod - mehul M.DMili 09/04 Imdur 08/24 Hx Tablets 30mg 30tab 1 po qd Gonzalo ER 24HR s Miguel A Canales, 09/07 M.DMili Prednisone 08/24 Hx Tablets 20mg 4tabs 2 tablets the night prior to Miguel A Canales, 09/01 catheterizatio M.DMili n then in am Cozaar Hx Tablets 100mg 90tab 1 po qd hold s as of 01.30.12 Miguel A Canales, 04/09 M.DMili Bupropion HCL Hx Tablets 150mg 90tab 1 po qd Clarissa XL /0000 ER 24HR s Tasia Brock M.D. 09/27 Carvedilol Hx Tablets 25mg 90tab 1/2 tablet by Jaz s mouth twice a [place], - M.DMili 09/11 Atorvastatin Hx Tablets 80mg 30tab 1 po qd in the Clarissa Calcium s evening Tasia Brock M.D. 01/19 Tramadol HCL Hx Tablets 50mg 100ta 1 po tid prn Unknown /0000 bs - 09/01 Alprazolam Hx Tablets 0.25mg 20tab 1 tab bid as Unknown /0000 s needed - 10/24 Levothyroxine Hx Tablets 125mcg 90tab 1 po qd Clarissa Sodium /0000 s Tasia Brock M.D. 01/27 Potassium Hx Tablets 8Meq 30tab 3 po weekly Unknown Chloride CR 0000 ER s prn with lasix - 05/28 Dapsone Hx Tablets 100mg 90tab 2 po weekly Unknown /0000 s prn - 01/09 Coq10 Hx Capsules 50mg 90cap 1 po qd Unknown /0000 s - 10/24 Nitroglycerin Hx 0.4mg 25uni 1 po SL onset ts of chest pain Miguel A Canales, 07/20 M.DMili /2012 D3 Hx Capsules 1000Unit 1 po qd Unknown /0000 - 01/09 Furosemide Hx Tablets 20mg 30tab 1 po three Unknown /0000 s times a week - prn 05/28 Vitamin D3 00/ Hx Capsules 1000Unit 30cap 1 po qd Unknown /0000 s - 09/27 Vitamin D3 High Hx Capsules 1000Unit 30cap 1 po qd Other Potency /0000 s Ordering - Provider 12/14 Clonidine HCL Hx Tablets 0.1mg 30tab 1 by mouth Unknown /0000 s twice a day - 11/06 Lidocaine HCL Hx Gel 2% as needed on Unknown / groins Dr. Tasia Allred 01/26 for breakouts Pantoprazole Hx Tablets 40mg 60tab 1 PO bid Clarissa Sodium / DR felton Brock - Allison 11/20 Brilinta Hx Tablets 90mg 60tab 1 tab by mouth Gonzalo / s twice a day Miguel A Canales, 04/13 M.D. /2017 Medications Administered in Office Medication Date Status Form Strength Qnty SIG Indications Ordering Provider Triamcinolone 05/14/ Administered Injection Fouzia (Kenalog) 2015 Liptak, RPA-C Synvisc Or 11/29/ Administered Injection Tracy Synvisc-One 2013 Henry, Injection 1 MG M.D. Hyaluron Or 11/29/ Administered Injection Tracy Derivative,Ortho 2013 Henry, visc,For M.D. Intra-Articular Inj Per Dose Hyaluron Or 11/22/ Administered Injection Tracy Derivative,Ortho 2013 Henry, visc,For M.D. Intra-Articular Inj Per Dose Hyaluron Or 11/15/ Administered Injection Tracy Derivative,Ortho 2013 Henry visc,For M.D. Intra-Articular Inj Per Dose Inj, 10/23/ Administered Injection Frankie D. Regadenoson, 0.1 2013 Brand, MG M.D. Technetium TC 10/23/ Administered Injection Frankie D. 99M Tetrofosmin, 2013 Brand, Per Unit Dose Up M.D. To 40 Millicuries Immunizations CPT Code Status Date Vaccine Lot # [id number] Given 07/18/2017 Pneumonia Vaccine [id number] 48671 Given 07/18/2017 Tdap - Tetanus/Diptheria/Acellular Pertussis [id number] 69921 Given 12/22/2015 Influenza Virus Vaccine, Quadrivalent, Split Virus, Im Use Q2039 Given 12/19/2014 Flu Vaccine NOS Q2037 Given 08/18/2014 Fluvirin Im 3Yrs And Older 16281 Given 05/22/2014 Pneumococcal Conjugate Vaccine 13 Valent For [id number] Intramuscular Use 39343 Given 12/05/2013 Influenza Virus 3Yrs & Over Q2037 Given 12/01/2013 Fluvirin Im 3Yrs And Older 17547 Given 04/09/2012 Zoster (Zostavax) [id number] 90778 Given 01/10/2012 Pneumonia Vaccine 58665 Given 01/10/2012 Pneumonia Vaccine 64852 Given 01/10/2012 Pneumonia Vaccine [id number] Vital Signs Date Vital Result Comment 07/18/2017 Height 64 inches 5'4" Weight 238.00 lb Heart Rate 52 /min BP Systolic 124 mmHg BP Diastolic 50 mmHg O2 % BldC Oximetry 96 % BMI (Body Mass Index) 40.8 kg/m2 06/02/2017 Height 64 inches 5'4" Weight 251.00 [...] Test Date Test Result H/L Range Note Basic Metabolic Panel 06/19/2017 Sodium 141 mmol/L 139-145 Potassium 4.7 mmol/L 3.5-5.0 Chloride 106 mmol/L 101-111 Co2 Carbon Dioxide 28 mmol/L 22-32 Anion Gap 7 mmol/L 2-11 Glucose 158 mg/dL High 70-100 Blood Urea Nitrogen 26 mg/dL High 6-24 Creatinine 0.90 mg/dL 0.51-0.95 BUN/Creatinine Ratio 28.9 High 8-20 Calcium 9.5 mg/dL 8.6-10.3 Egfr Non- 61.2 >60 Egfr 78.7 >60 1 Urine Microalbumin Random 06/19/2017 Ur Microalbumin (mg/L) < 15.0 mg/L Urine Creatinine 152.37 mg/dL Urine Microalbumin/Creatinine TNP ug/mg <31 2 Laboratory test finding 06/19/2017 TSH (Thyroid Stim Horm) 0.97 mcIU/mL 0.34-5.60 Free T4 (Free Thyroxine) 0.98 ng/dL 0.61-1.12 Vitamin D Total 25(Oh) 37.8 ng/mL 20-50 Lipid Panel - JF 05/03/2017 Creatine Kinase(CK) 21 U/L 10-223 Comp [...] Egfr Non- 74.4 >60 Egfr 95.7 >60 3 Lipid Profile (Trig/Chol/HDL) 05/03/2017 Triglycerides 95 mg/dL 4 Cholesterol 122 mg/dL 5 HDL Cholesterol 39.4 mg/dL 6 LDL Cholesterol 64 mg/dL 7 Pre Cath Panel 02/10/2017 Partial Thrombo Time [...] % 0.1 Inr/Protime 02/10/2017 Inr 0.96 0.77-1.02 8 Basic Metabolic Panel 02/10/2017 Sodium 140 mmol/L 133-145 Potassium 4.1 mmol/L 3.5-5.0 Chloride 105 mmol/L 101-111 Co2 Carbon Dioxide 29 mmol/L 22-32 Anion Gap 6 mmol/L 2-11 Glucose 157 mg/dL High 70-100 Blood Urea Nitrogen 19 mg/dL 6-24 Creatinine 0.87 mg/dL 0.51-0.95 BUN/Creatinine Ratio 21.8 High 8-20 Calcium 9.0 mg/dL 8.6-10.3 Egfr Non- 63.6 >60 Egfr 81.9 >60 9 Basic Metabolic Panel 12/16/2016 Sodium 138 mmol/L 133-145 Potassium 4.1 mmol/L 3.5-5.0 Chloride 104 mmol/L 101-111 Co2 Carbon Dioxide 29 mmol/L 22-32 Anion Gap 5 mmol/L 2-11 Glucose 253 mg/dL High 70-100 Blood Urea Nitrogen 21 mg/dL 6-24 Creatinine 0.88 mg/dL 0.51-0.95 BUN/Creatinine Ratio 23.9 High 8-20 Calcium 9.0 mg/dL 8.6-10.3 Egfr Non- 62.8 >60 Egfr 80.8 >60 10 Laboratory test finding 12/16/2016 Creatine Kinase(CK) 22 U/L 10-223 Lipid Profile (Trig/Chol/HDL) 04/21/2016 Triglycerides 88 mg/dL 11 Cholesterol 125 mg/dL 12 HDL Cholesterol 41.0 mg/dL 13 LDL Cholesterol 66 mg/dL 14 Laboratory test finding 04/21/2016 Vitamin D Total 25(Oh) 31.7 ng/mL 30- 50 15 Comp Metabolic Panel 04/21/2016 Sodium 138 mmol/L [...] Egfr Non- 53.1 >60 Egfr 68.3 >60 16 Basic Metabolic Panel 05/21/2015 Sodium 135 mmol/L 133-145 Potassium 4.5 mmol/L 3.5-5.0 Chloride 102 mmol/L 101-111 Co2 Carbon Dioxide 26 mmol/L 22-32 Anion Gap 7 mmol/L 2-11 Glucose 208 mg/dL High 70-100 Blood Urea Nitrogen 27 mg/dL High 6-24 Creatinine 0.82 mg/dL 0.51-0.95 BUN/Creatinine Ratio 32.9 High 8-20 Calcium 9.0 mg/dL 8.6-10.3 Egfr Non- 68.5 >60 Egfr 88.1 >60 17 Iron & Iron Binding Capacity 04/16/2015 Iron [...] Lipid Profile (Trig/Chol/HDL) 04/16/2015 Triglycerides 82 mg/dL 18 Cholesterol 143 mg/dL 19 HDL Cholesterol 47.8 mg/dL 20 LDL Cholesterol 79 mg/dL 21 Comp Metabolic Panel 04/16/2015 Sodium 136 mmol/L [...] Non- 76.0 >60 Egfr 97.7 >60 22 Lipid Panel - [facility] 04/16/2015 Creatine Kinase(CK) 29 U/L 10-223 CBC Auto Diff 03/26/2015 White Blood Count [...] Blood Cells % 0 Laboratory test finding 03/26/2015 Vitamin D Total 25(Oh) 29.7 ng/mL Low 30-50 Vitamin B12 502 pg/mL 180-914 23 Basic Metabolic Panel 11/20/2014 Sodium 139 mmol/L 133-145 Potassium 4.5 mmol/L 3.5-5.0 Chloride 104 mmol/L 101-111 Co2 Carbon Dioxide 28 mmol/L 22-32 Anion Gap 7 mmol/L 2-11 Glucose 139 mg/dL High 70-100 Blood Urea Nitrogen 18 mg/dL 6-24 Creatinine 0.75 mg/dL 0.51-0.95 BUN/Creatinine Ratio 24.0 High 8-20 Calcium 8.9 mg/dL 8.6-10.3 Egfr Non- 76.0 >60 Egfr 97.7 >60 24 Laboratory test finding 09/16/2014 Point of Care 168 mg/dL High 74-106 25 Glucose Laboratory test finding 09/16/2014 Point of Care 180 mg/dL High 74-106 26 Glucose Protime W/ Inr 09/12/2014 Inr 0.97 [...] 0 Lipid Panel 09/12/2014 Triglycerides 94 mg/dL 27 Cholesterol 139 mg/dL 28 HDL Cholesterol 42.7 mg/dL 29 LDL Cholesterol 78 mg/dL 30 CMP Panel 09/12/2014 Sodium 139 mmol/L 133-145 [...] Egfr Non- 77.4 >60 Egfr 99.5 >60 31 Lipid Panel - [facility] 09/12/2014 Creatine Kinase(CK) 27 U/L 10-223 Order [...] Egfr Non- 78.6 >60 Egfr 101.1 >60 32 Laboratory test finding 06/26/2014 Troponin I 0.00 ng/mL <0.03 33 D Dimer Quantitative < 200 ng/mL Less Than 230 34 B Type Natriuretic Peptide 27 pg/mL 35 T4 9.74 g/dL 6.09-12.23 Free T3 2.80 pg/mL 2.5-3.9 TSH (Thyroid Stimulating Horm) 1.15 IU/mL 0.34-5.60 Urinalysis Profile 02/19/2014 Urine Color Yellow Urine Appearance Clear Urine Specific [place] 1.015 1.010-1.030 Urine pH 6.0 5-9 Urine [...] Egfr Non- 63.3 >60 Egfr 81.5 >60 36 Type & Screen 02/19/2014 Patient Blood Type A Positive Antibody Screen NEGATIVE Lipid Panel - [facility] 09/17/2013 Creatine Kinase 41 U/L 10-223 37, 38 Comp Metabolic Panel 09/17/2013 Sodium 138 mmol/L 133-145 37 Potassium 4.1 mmol/L 3.7-5.6 37 Chloride 103 mmol/L 101-111 37 Co2 Carbon Dioxide 27 mmol/L 22-32 37 Anion Gap 8 mmol/L 2-11 37 Glucose 157 mg/dL High 70-100 37 Blood Urea Nitrogen 17 mg/dL 6-24 37 Creatinine 0.84 mg/dL 0.51-0.95 37 BUN/Creatinine Ratio 20.2 High 8-20 37 Calcium 9.2 mg/dL 8.6-10.3 37 Total Protein 6.4 g/dL 6.4-8.9 37 Albumin 4.2 g/dL 3.2-5.2 37 Globulin 2.2 g/dL 2-4 37 Albumin/Globulin Ratio 1.9 1-3 37 Total Bilirubin 0.80 mg/dL 0.2-1.0 37 Alkaline Phosphatase 75 U/L 34-104 37 Alt 14 U/L 7-52 37 Ast 12 U/L Low 13-39 37 Egfr Non- 67.0 >60 37 Egfr 86.2 >60 37, 39 Lipid Profile (Trig/Chol/HDL) 09/17/2013 Triglycerides 75 mg/dL 37, 40 Cholesterol 149 mg/dL 37, 41 HDL Cholesterol 45.4 mg/dL 37, 42 LDL Cholesterol 89 mg/dL 37, 43 Laboratory test finding 07/17/2013 Affirm Vaginal Dna Probe (SEE NOTE) 44 Vitamin D, 25 Hydroxy 05/28/2013 25-Hydroxy Vitamin D2 4.8 ng/mL 25-Hydroxy Vitamin D3 29 ng/mL 25-Hydroxy Vitamin D Total 34 ng/mL 45 Drug Abuse 20 Urine 02/21/2013 Urine Amphetamine Negative ng/mL 46 Urine Barbiturates Negative ng/mL 47 Urine Benzodiazepines Negative ng/mL 48 Urine Cocaine Negative ng/mL 49 Urine Methadone Negative ng/mL 50 Urine Opiates Negative ng/mL 51 Urine Phencyclidine Negative ng/mL Cutoff: 25 Urine Propoxyphene Negative ng/mL 52 Urine Tetrahydrocannabinol Negative ng/mL Cutoff: 20 53 Creatinine 149.5 mg/dL Specific [place] 1.029 pH 4.7 Oxidants Negative 54 Urine Opiates Screen Negative 55 Urine Codeine Confirmation Negative ng/mL 56 Urine Hydrocodone Confirm Negative ng/mL 57 Urine Hydromorphone Confirm Negative ng/mL 58 Urine Morphine Confirm Negative ng/mL 59 Urine Oxycodone Confirm 1251 ng/mL 60 Urine Opiates Interpretation See Comment 61 CBC Auto Diff 09/27/2012 White Blood Count [...] Egfr Non- 71.1 >60 Egfr 91.5 >60 62 Lipid Profile (Trig/Chol/HDL) 09/27/2012 Triglycerides 62 mg/dL 40-200 Cholesterol 122 mg/dL Less than 200 HDL Cholesterol 45 mg/dL 40-60 63 Cholesterol/HDL Ratio 2.7 Average 1-4.44 LDL Cholesterol 64.6 Less Than 100 64 Laboratory test finding 09/27/2012 Creatine Kinase 33 U/L 0-200 Laboratory test finding 09/07/2012 Erythrocyte Sed Rate 16 mm/Hr 0-40 Vitamin D, 25 Hydroxy 09/07/2012 25-Hydroxy Vitamin D2 <4.0 ng/mL 25-Hydroxy Vitamin D3 32 ng/mL 25-Hydroxy Vitamin D Total 32 ng/mL 65 CBC Auto Diff 09/07/2012 White Blood Count [...] finding 09/04/2012 CRP High Sensitivity 17.6 mg/L 66 Rheumatoid Factor <15 IU/mL <15 67 Noemi (Anti-Nuclear AB) Screen Negative Negative Laboratory test finding 08/24/2012 Magnesium 2.0 mg/dL 1.7-2.6 Troponin I 0.01 ng/mL 0-0.06 68 C Reactive Protein 1.4 mg/dL High Less than 0.5 Comp Metabolic Panel 08/24/2012 Sodium 138 mmol/L [...] Egfr Non- 62.1 >60 Egfr 79.8 >60 69 Laboratory test finding 08/24/2012 Activated Partial 26.5 [...] 20 Urine 08/07/2012 Urine Amphetamine Negative ng/mL 70 Urine Barbiturates Negative ng/mL 71 Urine Benzodiazepines Negative ng/mL 72 Urine Cocaine Negative ng/mL 73 Urine Methadone Negative ng/mL 74 Urine Opiates Negative ng/mL 75 Urine Phencyclidine Negative ng/mL Cutoff: 25 Urine Propoxyphene Negative ng/mL 76 Urine Tetrahydrocannabinol Negative ng/mL Cutoff: 20 77 Creatinine 163.1 mg/dL Specific [place] 1.022 pH 5.6 Oxidants Negative 78 Urine Opiates Screen Negative 79 Urine Codeine Confirmation Negative ng/mL 80 Urine Hydrocodone Confirm Negative ng/mL 81 Urine Hydromorphone Confirm Negative ng/mL 82 Urine Morphine Confirm Negative ng/mL 83 Urine Oxycodone Confirm 683 ng/mL 84 Urine Opiates Interpretation See Comment 85 Lipid Profile (Trig/Chol/HDL) 05/15/2012 Triglycerides 73 mg/dL 40-200 Cholesterol 141 mg/dL Less than 200 HDL Cholesterol 39 mg/dL Low 40-60 86 Cholesterol/HDL Ratio 3.6 Average 1-4.44 LDL Cholesterol 87.4 mg/dL Less Than 100 87 Lipid Panel 05/14/2012 Cholesterol Total <pending> Cholesterol/HDL [...] Egfr Non- 71.1 >60 Egfr 91.5 >60 88 CBC Auto Diff 01/20/2012 White Blood Count [...] Blood Cells % 0 Laboratory test finding 01/10/2012 Free T4 0.70 NG/ML 0.61-1.24 Free T3 2.72 pg/mL 2.39-6.79 TSH (Thyroid Stimulating Horm) 3.21 MIU/ML 0.34-5.60 CBC With Manual Diff 01/10/2012 White Blood [...] Cholesterol 204 mg/dL High Less than 200 89 HDL Cholesterol 49 mg/dL 40-60 90 Cholesterol/HDL Ratio 4.2 AVERAGE 1-4.44 LDL Cholesterol 137.6 mg/dL High Less Than 100 91 Lipid Profile (Trig/Chol/HDL) 09/06/2011 Triglyceride 136 mg/dL 40-200 Cholesterol 170 mg/dL Less Than 200 92 High Density Lipoprotein 37 mg/dL Low 40-60 93 Cholesterol/HDL Ratio 4.59 AVERAGE High 1-4.44 Low Density Lipoprotein 106 mg/dL High Less Than 100 94 Comp Metabolic Panel 09/06/2011 Sodium 137 mmol/L 135-145 Potassium 4.3 mmol/L 3.5-5.0 Chloride 102 mmol/L 101-111 Co2 (Carbon Dioxide) 24.0 mmol/L 22-32 Anion Gap 11.0 mmol/L 2-11 95 Glucose 173 mg/dL High 70-100 BUN 15 mg/dL 6-24 Creatinine 0.7 mg/dL 0.50-1.40 One Over Creatinine 1.42 BUN/Creatinine Ratio 21.4 High 8-20 Calcium 9.0 mg/dL 8.1-9.9 Total Protein 6.3 GM/DL 6.2-8.1 Albumin 3.7 GM/DL 3.2-5.2 Globulin 2.6 GM/DL 2-4 Albumin/Globulin Ratio 1.4 1-3 Bilirubin Total 0.9 mg/dL 0.4-1.5 96 Alkaline Phosphatase 94 U/L 30-110 Alt (SGPT) 16 U/L 14-54 Ast (Sgot) 14 U/L 12-42 eGFR Non- 83.2 > 60 eGFR 107.0 > 60 97 CBC Auto Diff 09/06/2011 White Blood Count [...] 7.4-10.4 Absolute Neutrophil Count 7.9 High 1.5-7.7 98 Laboratory test finding 09/06/2011 Vitamin D, 1,25 Dihydroxy 27 pg/mL 18- 78 99 Vitamin B12 And Folate 09/06/2011 Vitamin B12 581 pg/mL 180-914 Serum Folic Acid 6.9 NG/ML See Below 100 Laboratory test finding 09/06/2011 TSH 5.20 MIU/ML [...] mmol/L 22-32 Anion Gap 5.0 mmol/L 2-11 101 Glucose 145 mg/dL High 70-100 BUN 17 mg/dL 6-24 Creatinine 0.8 mg/dL 0.50-1.40 One Over Creatinine 1.25 BUN/Creatinine Ratio 21.3 High 8-20 Calcium 9.3 mg/dL 8.1-9.9 eGFR Non- 71.3 > 60 eGFR 91.7 > 60 102 Protime 08/25/2011 Inr 0.91 0.88-1.13 103 Protime 10.8 SEC 10.3-13.5 104 Laboratory test finding 08/18/2011 Hemoglobin A1c 7.6 [...] 5 Kidney failure <15 (or dialysis) 2 Unable to calculate due to low microalbumin 3 Because ethnic data is not always readily [...] 15-29 5 Kidney failure <15 (or dialysis) 4 Desirable: <150 Borderline High: 150-199 High: 200-499 Very High: >500 5 Desirable: <200 Borderline High: 200-239 High: >239 6 Low: <40 Desirable: 40-60 High: >60 7 Desirable: <100 Near Optimal: 100-129 Borderline High: 130-159 High: 160-189 Very High: >189 8 Please note the change in INR reference range effective 17. 9 Because ethnic data is not always readily [...] 15-29 5 Kidney failure <15 (or dialysis) 10 Because ethnic data is not always readily [...] 15-29 5 Kidney failure <15 (or dialysis) 11 Desirable <150 Borderline high 150-199 High 200-499 Very High >500 12 Desirable <200 Borderline high 200-239 High >239 13 Low <40 Desirable: 40-60 High: >60 14 Desirable: <100 mg/dL Near Optimal: 100-129 mg/dL Borderline High: 130-159 mg/dL High: 160-189 mg/dL Very High: >189 mg/dL 15 FASTING 12 HOUR cc pmd 16 Because ethnic data is not always readily [...] 15-29 5 Kidney failure <15 (or dialysis) 17 Because ethnic data is not always readily [...] 15-29 5 Kidney failure <15 (or dialysis) 18 Desirable <150 Borderline high 150-199 High 200-499 Very High >500 19 Desirable <200 Borderline high 200-239 High >239 20 Low <40 Desirable: 40-60 High: >60 21 Desirable: <100 mg/dL Near Optimal: 100-129 mg/dL Borderline High: 130-159 mg/dL High: 160-189 mg/dL Very High: >189 mg/dL 22 Because ethnic data is not always [...] 5 Kidney failure <15 (or dialysis) 23 Normal Range 180 to 914 Indeterminate Range 145 to 180 Deficient Range <145 24 Because ethnic data is not always readily [...] 15-29 5 Kidney failure <15 (or dialysis) 25 Animal Laboratory Technician: [id number] SHURTLEFF MARIA INES 26 Animal Laboratory Technician: [id number] SHURTLEFF MARIA INES 27 Desirable <150 Borderline high 150-199 High 200-499 Very High >500 28 Desirable <200 Borderline high 200-239 High >239 29 Low <40 Desirable: 40-60 High: >60 30 Desirable: <100 mg/dL Near Optimal: 100-129 mg/dL Borderline High: 130-159 mg/dL High: 160-189 mg/dL Very High: >189 mg/dL 31 Because ethnic data is not always readily [...] 15-29 5 Kidney failure <15 (or dialysis) 32 Because ethnic data is not always readily [...] 15-29 5 Kidney failure <15 (or dialysis) 33 Reference Range and Interpretation: TnI (ng/mL) Interpretation Less Than 0.03 ng/mL Not supportive of diagnosis of OR 0.03 - 0.50 ng/mL Indeterminate: suggest serial studies if clinically indicated. Greater than 0.5 ng/mL Consistent with diagnosis of OR 34 Please note: The following may produce a false positive D Dimer test: - Rheumatoid factor greater than 60 IU/ml - Plasma hemoglobin greater than 0.05 gm/dl - Bilirubin greater than 50 mg/dl - Lipids greater than 1000 mg/dl - FDP greater than 20 ug/ml 35 >100 to <200 pg/mL: likely compensated congestive heart failure (CHF) 200 to 400 pg/mL: likely moderate CHF >400 pg/mL: likely moderate to severe CHF [place] [facility] 36 Because ethnic data is not always readily [...] 15-29 5 Kidney failure <15 (or dialysis) 37 PT IS FASTING 38 PT IS FASTING 39 Because ethnic data is not always readily [...] 15-29 5 Kidney failure <15 (or dialysis) 40 Desirable <150 Borderline high 150-199 High 200-499 Very High >500 41 Desirable <200 Borderline high 200-239 High >239 42 Low <40 Desirable: 40-60 High: >60 43 Desirable <100 Near Optimal 100-129 Borderline high 130-159 High 160-189 Very High >189 44 RUN DATE: 07/18/13 [facility] LAB LIVE PAGE 1 RUN TIME: [address] [place], [place] [address] Specimen Inquiry Name: CHAN CHANDLER : [address]: Clarissa Brock MD Acct: [id number] Unit: [id number] AGE: 72 Location: [facility] Re07/17/13 SEX: F Status: REG REF SPEC: [id number] VENITA: 07/17/13-[address] [facility] [address]: Clarissa Brock MD REQ: [id number] RECD: 07/17/13 STATUS: COMP _ SOURCE: VAGINAL SPDESC: ORDERED: Affirm QUERIES: Medent Number [id number] Procedure Result Verified Site Affirm Vaginal DNA [...] performed at Main Lab DEPARTMENT OF PATHOLOGY, [address] [place] [address] Rock Barbosa M.D. Director [facility] # [id number] 45 -- REFERENCE VALUE -- 25-HYDROXY D TOTAL (D2+D3) Optimum levels in the healthy population are 20-50, patients with bone disease may benefit from higher levels within this range. Test Performed by: [place] [address] Spice Room Worker: Yusuf Gay III, M.D. 46 -- REFERENCE VALUE -- Cutoff: 500 47 -- REFERENCE VALUE -- Cutoff: 200 48 -- REFERENCE VALUE -- Cutoff: 200 49 -- REFERENCE VALUE -- Cutoff: 150 50 -- REFERENCE VALUE -- Cutoff: 300 51 -- REFERENCE VALUE -- Cutoff: 300 52 -- REFERENCE VALUE -- Cutoff: 300 53 This report is intended for use in clinical monitoring or management of patients. It is not intended for use in employment-related testing. 54 Test Performed by: [place] [address] Spice Room Worker: Yusuf Gay III, M.D. 55 -- REFERENCE VALUE -- Cutoff: 300 56 -- REFERENCE VALUE -- Cutoff: 100 57 -- REFERENCE VALUE -- Cutoff: 100 58 -- REFERENCE VALUE -- Cutoff: 100 59 -- REFERENCE VALUE -- Cutoff: 100 60 -- REFERENCE VALUE -- Cutoff: 100 61 Positive. Discrepancy noted between immunoassay result and GC/MS result. The GC/MS result is the definitive result. This report is intended for use in clinical monitoring and management of patients. It is not intended for use in employment-related testing. Test Performed by: [place] [address] Spice Room Worker: Yusuf Gay III, M.D. 62 Because ethnic data is not always readily [...] 15-29 5 Kidney failure <15 (or dialysis) 63 HDL Interpretation: Undesirable: High Risk: Less than 40 mg/dL Desirable: Low Risk: Greater than 60 mg/dL 64 LDL Interpretation: Low Risk Optimal Level: LDL Less than 100 mg/dL Near or Above Optimal: LDL 100-129 mg/dL Borderline High Risk: LDL 130-159 mg/dL High Risk: LDL 160-189 mg/dL Very High Risk: LDL Greater than 189 mg/dL 65 -- REFERENCE VALUE -- 25-HYDROXY D TOTAL (D2+D3) Optimum levels in the normal population are 25-80 Test Performed by: [address] [address] Spice Room Worker: Yusuf Gay III, M.D. 66 Less Than 1.0......Low Risk of Cardiovascular Disease 1.0-3.0............Medium Risk (<2 Fold Increase) Greater Than 3.0...High Risk (Approximately 2-Fold Increase) 67 Test Performed by: [address] [address] Spice Room Worker: Yusuf Gay III, M.D. 68 Reference Range and Interpretation: TnI (ng/mL) Interpretation Less Than 0.06 ng/mL Not supportive of diagnosis of OR 0.06 - 0.50 ng/mL Indeterminate: suggest serial studies if clinically indicated. Greater than 0.5 ng/mL Consistent with diagnosis of OR 69 Because ethnic data is not always readily [...] 15-29 5 Kidney failure <15 (or dialysis) 70 -- REFERENCE VALUE -- Cutoff: 500 71 -- REFERENCE VALUE -- Cutoff: 200 72 -- REFERENCE VALUE -- Cutoff: 200 73 -- REFERENCE VALUE -- Cutoff: 150 74 -- REFERENCE VALUE -- Cutoff: 300 75 -- REFERENCE VALUE -- Cutoff: 300 76 -- REFERENCE VALUE -- Cutoff: 300 77 This report is intended for use in clinical monitoring or management of patients. It is not intended for use in employment-related testing. 78 Test Performed by: [place] [address] Spice Room Worker: Yusuf Gay III, M.D. 79 -- REFERENCE VALUE -- Cutoff: 300 80 -- REFERENCE VALUE -- Cutoff: 100 81 -- REFERENCE VALUE -- Cutoff: 100 82 -- REFERENCE VALUE -- Cutoff: 100 83 -- REFERENCE VALUE -- Cutoff: 100 84 -- REFERENCE VALUE -- Cutoff: 100 85 Positive. Discrepancy noted between immunoassay result and GC/MS result. The GC/MS result is the definitive result. This report is intended for use in clinical monitoring and management of patients. It is not intended for use in employment-related testing. Test Performed by: [address] [address] Spice Room Worker: Yusuf Gay III, M.D. 86 HDL Interpretation: Undesirable: High Risk: Less than 40 MG/DL Desirable: Low Risk: Greater than 60 MG/DL 87 LDL Interpretation: Low Risk Optimal Level: LDL Less than 100 MG/DL Near or Above Optimal: LDL 100-129 MG/DL Borderline High Risk: LDL 130-159 MG/DL High Risk: LDL 160-189 MG/DL Very High Risk: LDL Greater than 189 MG/DL 88 Because ethnic data is not always readily [...] 15-29 5 Kidney failure <15 (or dialysis) 89 Desirable: Less than 200 MG/DL Borderline-High Risk: 200-239 MG/DL High-Risk: 240 MG/DL and over 90 HDL Interpretation: Undesirable: High Risk: Less than 40 MG/DL Desirable: Low Risk: Greater than 60 MG/DL 91 LDL Interpretation: Low Risk Optimal Level: LDL Less than 100 MG/DL Near or Above Optimal: LDL 100-129 MG/DL Borderline High Risk: LDL 130-159 MG/DL High Risk: LDL 160-189 MG/DL Very High Risk: LDL Greater than 189 MG/DL 92 CHOLESTEROL INTERPRETATION: Desirable: Less than 200 MG/DL Borderline-High Risk: 200-239 MG/DL High-Risk: 240 MG/DL and over 93 HDL INTERPRETATION: Undesirable: High Risk: Less than 40 MG/DL Desirable: Low Risk: Greater than 60 MG/DL 94 LDL INTERPRETATION: Low Risk Optimal Level: LDL Less than 100 MG/DL Near or Above Optimal: LDL 100-129 MG/DL Borderline High Risk: LDL 130-159 MG/DL High Risk: LDL 160-189 MG/DL Very High Risk: LDL Greater than 189 MG/DL 95 Anion gap measurement may be of limited value in the presence of any alkalosis, especially in a combined acid base disorder. . 96 A metabolite of Naproxen, O-desmethylnaproxen, has been shown to interfere with the Jendrassik-Verna method for measuring total bilirubin. Samples from patients who have taken Naproxen have shown spurious elevation in total bilirubin levels. 97 Because ethnic data is not always readily [...] 15-29 5 Kidney failure <15 (or dialysis) 98 Lymphopenia % 99 Test Performed by: [place] [address] Spice Room Worker: Yusuf Gay III, M.D. 100 Please note: New reference range, effective 02/24/11 NORMAL REFERENCE RANGE: GREATER THAN 4.1 NG/ML 101 Anion gap measurement may be of limited value in the presence of any alkalosis, especially in a combined acid base disorder. . 102 Because ethnic data is not always readily [...] 15-29 5 Kidney failure <15 (or dialysis) 103 Recommended INR for Patients on Oral Anticoagulants Prophylaxis 2.0 - 3.0 Treatment of thrombosis 2.0 - 3.0 Prevention of embolism 2.0 - 3.0 Prevention of embolism from prosthetic heart valves 2.5 - 3.5 104 DIAGNOSIS,TREATMENT,AND THERAPY MUST BE BASED ON THE INR VALUE ALONE. Procedures Date CPT Code Description Status Comment 04/11/2017 51918 EKG Tracing & Interpretation Completed 02/23/2017 50895 EKG Tracing & Interpretation Completed 02/23/2017 09340 EKG Tracing & Interpretation Completed 02/15/2017 12495 EKG, Interpretation Only Completed 02/14/2017 48587 Intravasc.Blood Flow-Ea.Addtl Completed Ves 02/14/2017 90314 Intravascular Blood Flow Completed Velocity 02/14/2017 21939 Cath PLMT&NJX L Ventriculog Completed Img S&I 02/14/2017 91061 EKG, Interpretation Only Completed 02/14/2017 04364 Percutaneous Transcatheter Completed Placement Of Intracoronary Stent 01/23/2017 90190 EKG Tracing & Interpretation Completed 01/13/2017 24073 Treadmill Interp/Report Only Completed 01/13/2017 89447 Stress Test Supervsn W/Out I/R Completed 12/20/2016 19159 ECHO Transthoracic, Real-Time 2D Completed With Doppler And Color Flow 12/15/2016 91338 EKG Tracing & Interpretation Completed 11/21/2016 69582 EKG Tracing & Interpretation Completed 07/11/2016 34801 EKG Tracing & Interpretation Completed 07/06/2016 Diabetic Retinal Eye Exam Completed Document: 07/06/16 - Consult Ophthalmology/[place] 04/21/2016 Mammogram Completed 09/09/2015 57890 EKG Tracing & Interpretation Completed 05/27/2015 56895 EKG Tracing & Interpretation Completed 05/18/2015 Diabetic Retinal Eye Exam Completed 05/15/2015 01055 Inject/Drain Joint/Bursa Major Completed 05/14/2015 Diabetic Retinal Eye Exam Completed Document: 05/14/15 - Consult Ophthalmology/[place] 04/07/2015 60016 EKG Tracing & Interpretation Completed 03/26/2015 Bone Mineral Density Test Completed 03/26/2015 Mammogram Completed 12/03/2014 32555 EKG Tracing & Interpretation Completed 10/03/2014 40032 Xray Knee 3 Views Completed 09/16/2014 74021 Cath PLMT&NJX L Ventriculog Completed Img S&I 09/11/2014 51116 EKG Tracing & Interpretation Completed 09/09/2014 75251 Diffusing Capacity Completed 09/09/2014 35694 Plethysmography Determination Completed Lung Volumes & Per Airway Resist 09/09/2014 16172 Pulmonary Completed Function><Bronchodil 08/12/2014 61486 ECG Monitor/Recording W/Visual Completed Superimposition Scanning 08/12/2014 17688 Holter Monitor Review (24 hr) Completed review & interp only 08/07/2014 23584 ECG Monitor/Recording W/Visual Completed Superimposition Scanning 08/07/2014 94575 Holter Monitor Review (24 hr) Completed review & interp only 07/24/2014 63172 ECHO Transthoracic, Real-Time 2D Completed With Doppler And Color Flow 07/14/2014 07074 EKG Tracing & Interpretation Completed 06/27/2014 08748 EKG, Interpretation Only Completed 03/28/2014 16589 Xray Knee 3 Views Completed 03/04/2014 69544 TKR Total Knee Replacement Completed 03/04/2014 14500 TKR Total Knee Replacement Completed 01/27/2014 28639 EKG Tracing & Interpretation Completed 01/02/2014 Diabetic Retinal Eye Exam Completed 11/29/201349140 Inject/Drain Joint/Bursa Major Completed 11/22/2013 52388 Inject/Drain Joint/Bursa Major Completed 11/15/201355800 Inject/Drain Joint/Bursa Major Completed 10/23/2013 60373 Myocardial Perfusion Imaging Completed Tomographic (Spect) Multiple Studies 10/23/2013 65065 Stress Test Completed 10/03/2013 05740 EKG Tracing & Interpretation Completed 09/27/2013 96178 Xray Knee 3 Views Completed 09/27/2013 38635 Rad Exam; Knee, Ap&L Completed 09/27/2013 96882 Rad Exam; Hip Unilat Comp Completed 09/27/2013 63406 Rad Exam; Pelvis Completed 05/20/2013 Mammogram Completed 05/20/2013 23419 EKG Tracing & Interpretation Completed 08/25/2012 57223 Myocardial Perfusion Imaging Completed Tomographic (Spect) Multiple Studies 08/25/2012 79371 Stress Test Supervsn W/Out I/R Completed 08/25/2012 61023 Treadmill Interp/Report Only Completed 07/20/2012 15355 EKG Tracing & Interpretation Completed 02/03/2012 50656 EKG Tracing & Interpretation Completed 01/31/2012 42095 Stress Test Supervsn W/Out I/R Completed 01/31/2012 92630 Treadmill Interp/Report Only Completed 01/31/2012 68835 Stress ECHO Completed Interpretation/Report Hospital 01/20/2012 95208 ECHO Transthoracic, Real-Time 2D Completed With Doppler And Color Flow 01/20/2012 61935 EKG Tracing & Interpretation Completed 01/02/2012 Mammogram Completed 11/17/2011 63907 Rad Shoulder Comp, Min. 2 Views Completed 09/14/2011 Bone Mineral Density Test Completed 08/30/2011 32375 Left Health Catheterization Completed W/Inj For Left Ventriculography,S&I 08/30/2011 69225 Cath PLMT&NJX L Ventriculog Completed Img S&I 08/30/2011 78460 Left Heart Cath. Incl S/I Completed Coronaries, Angio S/I V Gram If Done 08/25/2011 19259 EKG Tracing & Interpretation Completed 03/06/2009 Colonoscopy Completed benign polyp ( per pt ) repeat due in 5 yrs Encounters Type Date Location Provider CPT E/M Dx Office Visit 06/02/2017 [facility] Tracy Figueroa M.D. 76266 M25.561 1:00p Of Charlie Z96.651 Office Visit 04/25/2017 11:30a [facility] Of Millie Luis, 44574 I25.119 Apartment Maintenance Technician N.P. I10 I44.7 R06.00 E78.00 R06.02 Office Visit 04/11/2017 1:20p [facility] Gonzalo Canales, 28818 I25.119 Allison I10 I44.7 R06.00 E78.00 E78.5 R06.02 Office Visit 02/23/2017 2:00p [facility] Of SIVA Garcia 28539 I10 R06.00 I25.10 I97.610 Office Visit 02/15/2017 8:52a [facility] Of Justin PerezMili Sen, 34093 I25.119 [facility] AT [facility] MD, FACC, FSCAI Office Visit 02/07/2017 9:00a [facility] Of SIVA Jones 94301 I25.119 [facility] I10 R06.00 Office Visit 12/23/2016 1:30p [facility] SIVA Jones 08984YEV R06.00 E66.01 I10 I25.10 Z68.41 Office Visit 12/15/2016 1:40p [facility] Gonzalo Canales, 10724 R06.00 M.D. E66.01 I10 I25.10 E11.9 Office Visit 11/21/2016 10:40a [facility] Gonzalo Canales, 46701 R06.00 M.D. E66.01 I10 R42 I25.10 Office Visit 08/10/2016 10:00a [facility] SIVA Jones 74113HCV R06.00 E66.01 I10 Office Visit 07/11/2016 2:40p [facility] Gonzalo Canales, 28656 R06.00 M.D. E66.01 R42 I10 I25.10 Office Visit 02/01/2016 11:45a [facility] Spencer Albarado, 79921 M47.22 Of Eve Cooper Office Visit 01/20/2016 1:00p [facility] Internal Medicine - Clarissa Brock, 82619 M48.02 Sai Cooper L85.3 Office Visit 10/09/2015 11:00a [facility] Of Tracy Figueroa M.D. 17480 Z96.651 C.M.A. Office Visit 10/01/2015 10:30a [facility] Of SIVA Jones 03436 I10 [facility] E66.01 R07.9 Office Visit 09/09/2015 3:40p [facility] Gonzalo Canales M.D. 44813 R07.9 I10 R06.00 E66.01 Office Visit 08/24/2015 8:10a [facility] Internal Medicine Clarissa Brock 12105 R22.32 - Arianna Cooper R07.9 Office Visit 06/30/2015 10:15a [facility] [place] [address] I10 Office Visit 06/12/2015 2:30p [facility] SIVA Jones 89841NUS I10 R07.9 R06.00 E66.01 Z68.41 Office Visit 05/27/2015 8:20a [facility] Gonzalo Canales M.D. 18228 R07.9 I10 R94.31 R06.00 Office Visit 05/21/2015 10:50a [facility] Internal Medicine Clarissa Brock M.D. 82873 R07.9 - Arianna Bañuelos85.862 I10 Office Visit 05/15/2015 11:20a [facility] Fouzia Rojas, 53412 S43.421A Of C.M.AMili RPA-C Office Visit 04/30/2015 11:50a [facility] Internal Medicine Clarissa Brock 55529 B35.9 - Arianna Cooper Office Visit 04/07/2015 10:30a [facility] Gonzalo ButchMili 56224 M25.511 Eve Canales M.D. R94.31 I10 I25.42 R07.9 E66.9 Office Visit 03/19/2015 9:10a [facility] Internal Medicine Clarissa Brock 38615 Z00.01 - Arianna Cooper K22.4 F41.9 R21 Z12.31 M85.89 Z86.010 M25.511 R53.83 Office Visit 12/03/2014 3:30p [facility] SIVA Jones 64726 K22.4 G47.33 I25.10 E11.9 Z01.810 Office Visit 11/20/2014 9:50a [facility] Internal Medicine Clarissa Brock 06398 715.98 - Arianna Cooper 530.5 696.8 686.9 Office Visit 11/06/2014 1:30p [facility] SIVA Jones 20182 327.23 786.05 530.5 414.01 250.00 786.50 Office Visit 10/14/2014 10:45a [facility] Sourav Bernal M.D. 12731 327.23 Services Of Apartment Maintenance Technician 786.05 Office Visit 10/03/2014 11:00a [facility] Of Tracy Figueroa M.D. 57429 V67.09 Apartment Maintenance Technician AT [place] 715.96 V43.65 Office Visit 09/22/2014 2:00p [facility] Of Justin Chatterjee, 29579 530.5 Apartment Maintenance Technician AT [facility] MD, FACC, FSCAI Office Visit 09/11/2014 1:40p [facility] Of Gonzalo Canales, 06406 327.23 Eve Cooper 786.05 786.50 414.01 250.00 244.8 278.01 429.9 Office Visit 08/20/2014 2:30p [facility] SIVA Jones 25920 327.23 786.05 786.50 414.01 250.00 244.8 278.01 429.9 Office Visit 08/18/2014 11:30a [facility] Sourav Bernal M.D. 94101 786.05 Services Of [facility] 327.23 Office Visit 08/13/2014 10:50a [facility] Internal Medicine Clarissa Brock 04768 786.50 - Arianna Coopre 300.00 715.18 Office Visit 07/15/2014 12:10p [facility] Internal Medicine Clarissa Brock M.D. 48885 465.9 - Lavelle 300.00 Office Visit 07/14/2014 3:40p [facility] Gonzalo Canales 30226 300.00 MSamanta 414.00 786.50 250.00 786.09 Office Visit 07/01/2014 10:30a [facility] Internal Medicine Clarissa Brock 83397 414.00 - Arianna Cooper 300.00 518.89 V12.69 Office Visit 06/27/2014 9:45a [facility], Ethan Brennan M.D. 48190 414.00 Hospitalists 780.50 780.79 272.4 Office Visit 06/26/2014 9:44a [facility], Millie FeltonMili Toby, 87520 414.00 Hospitalists N.P. 786.50 780.79 272.4 Office Visit 06/26/2014 10:50a [facility] Internal Medicine Clarissa Brock, 72263 300.00 - Arianna Cooper 786.50 Office Visit 05/22/2014 10:50a [facility] Internal Medicine Clarissa Vinod, 64165 715.18 - Arianna Cooper 300.00 V03.82 Office Visit 03/31/2014 12:10p [facility] Internal Medicine [facility] Vinod, 33993 V45.89 - Arianna Cooper 300.00 251.1 333.94 Office Visit 03/07/2014 10:10a [facility], Rocío Smith N.P. 48312 414.00 Hospitalists 244.9 250.00 401.9 Office Visit 03/06/2014 10:10a [facility], Rocío Smith N.P. 66782 414.00 Hospitalists 250.00 244.9 401.9 Office Visit 03/05/2014 10:09a [facility], Rocío Smith N.P. 20268 414.00 Hospitalists 244.9 250.00 401.9 Office Visit 03/04/2014 10:08a [facility], Rocío Smith N.P. 20981 414.00 Hospitalists 244.9 250.00 401.9 Office Visit 02/11/2014 10:10a [facility] Internal Medicine [facility] Vinod, 96388 V72.84 - Arianna Cooper 715.96 250.00 414.01 426.3 272.0 424.1 579.0 244.8 300.00 268.9 278.01 311 327.23 530.81 Office Visit 01/27/2014 11:00a [facility] Gonzalo Canales, 83996 414.01 MSamanta 426.3 272.0 424.1 Office Visit 01/09/2014 1:15p [facility] Yoni Louis 29777 715.96 Of Abbey Garcia Office Visit 12/18/2013 12:10p [facility] Internal Clarissa Brock 92045 715.96 Medicine - MSamanta Keller Office Visit 11/07/2013 11:30a [facility] SIVA Jones 64168HXD 414.01 401.1 426.3 272.0 Office Visit 10/11/2013 10:30a [facility] Of Tracy Figueroa M.D. 62376 715.96 C.M.A. Office Visit 10/03/2013 11:00a [facility] SIVA Jones 12089 719.46 414.01 401.1 272.0 786.50 426.3 424.1 Office Visit 09/27/2013 1:15p [facility] Of Tracy Figueroa M.D. 30317 715.96 C.M.A. 715.95 Office Visit 09/24/2013 10:30a [facility] Internal Medicine Clarissa Brock 67150 719.46 - Arianna Cooper 715.96 Office Visit 09/17/2013 11:50a [facility] Internal Medicine Clarissa Brock 08846 300.00 - Arianna Cooper 715.09 Office Visit 07/17/2013 2:10p [facility] Internal Medicine Clarissa Brock M.D. 25827 V70.0 - Lavelle 300.00 715.09 623.5 v72.31 Office Visit 07/09/2013 1:30p [facility] SIVA Jones 40731 414.01 401.1 272.0 Office Visit 06/05/2013 1:50p [facility] Internal Medicine Clarissa Brock 78602 300.00 - Arianna Cooper Office Visit 05/28/2013 10:30a [facility] Internal Medicine Clarissa Brock 02283 300.00 - Arianna Cooper 715.09 268.9 Office Visit 05/20/2013 2:20p [facility] Gonzalo Canales 26080 414.01 MSamanta 715.09 401.1 272.0 Office Visit 02/21/2013 11:50a [facility] Internal Medicine Clarissa Brock 20970 715.09 - Arianna Cooper 300.00 682.9 Office Visit 11/19/2012 10:50a [facility] Internal Medicine Clarissa Brock M.D. 36617 703.0 - Arianna 721.0 Office Visit 09/27/2012 10:10a [facility] Internal Medicine - Clarissa Brock, 47929 728.71 Arianna Cooper Office Visit 09/21/2012 2:20p [facility] Brady Viera, 81063 721.0 Of Eve Cooper 723.1 Office Visit 09/04/2012 3:10p [facility] Internal Medicine Clarissa Brock M.D. 97807 723.1 - Arianna 784.0 Office Visit 08/25/2012 10:15a [facility] Miguel Solares, 05755 414.01 Allison 794.31 401.1 786.50 426.3 786.05 V45.82 Office Visit 08/25/2012 3:32p [facility], Ethan Brennan M.D. 41541 786.50 Hospitalists 414.02 784.92 401.9 Office Visit 08/24/2012 3:31p [facility], [place] [address] 786.50 Hospitalists 414.02 784.92 401.9 Office Visit 08/07/2012 9:50a [facility] Internal Medicine Clarissa Brock 35443 715.09 - Arianna Cooper 300.00 285.8 268.9 Office Visit 07/20/2012 2:00p [facility] Gonzalo Canales M.D. 97039 696.1 272.2 414.01 278.01 Office Visit 04/09/2012 9:50a [facility] Internal Medicine Clarissa Brock 34548 715.09 - Arianna Cooper 696.1 v04.89 272.2 Office Visit 02/07/2012 10:30a [facility] Internal Medicine Clarissa Brock 55681 715.09 - Arianna Cooper 272.2 285.8 Office Visit 02/03/2012 2:00p [facility] Nurse Visit 47516 426.3 414.01 786.50 Office Visit 01/31/2012 10:30a [facility] Gonzalo Galindozehra, 53973 786.50 M.DMili 786.09 426.3 414.01 278.01 Office Visit 01/20/2012 9:30a [facility] Gonzalo Grady Mawesly, 34685 278.01 M.DMili 794.31 426.3 414.0 Office Visit 01/10/2012 9:50a [facility] Internal Medicine Clarissa Brock, 95061 715.09 - Arianna Cooper 783.1 244.8 788.33 V03.82 Office Visit 11/17/2011 10:00a [facility] Of Jerrod Hoang M.D. 36485 726.10 C.M.A. 721.1 Office Visit 10/25/2011 10:00a [facility], 00901 414.01 [facility] N.P. 401.1 272.2 Office Visit 10/10/2011 9:30a [facility] Internal Medicine Clarissa Brock, 53187 733.90 - Arianna Cooper 518.89 300.00 579.0 244.8 V76.19 Office Visit 09/12/2011 9:45a [facility] Internal Medicine Clarissa Brock, 14200 250.02 - Arianna Cooper 579.0 268.9 272.2 401.9 518.89 726.19 244.8 Office Visit 09/02/2011 1:20p [facility] Enmanuel Solares, 10762 414.01 M.DMili 401.1 V45.82 272.2 Office Visit 08/30/2011 11:30a [facility] Homeroyb SMili Solares, 79537 794.31 M.D. 786.50 414.01 401.1 V45.82 Office Visit 08/26/2011 2:40p [facility] Byrontayb SMili Solares, 99182 414.0 M.D. 272.2 401.1 250.02 V45.82 Office Visit 08/25/2011 11:20a [facility] Gonzalo FMili Canales, 30257 250.02 M.DMili 401.1 414.0 579.0 Office Visit 08/18/2011 10:00a [facility] Internal Medicine Clarissa Brock, 38905 250.02 - Arianna Cooper 401.1 414.0 579.0 715.80 518.89 272.2 285.8 244.8 Plan of Care Future Appointment(s):01/18/2018 10:30 am - Clarissa Brock M.D. at [facility] Internal Medicine - Dfoxghawb65/21/2018 2:00 pm - Gonzalo Canales M.D. at [facility]07/18/2017 - Clarissa Brock M.D.Z00.00 Encntr for general adult medical exam w/o abnormal findingsComments:self breast exams are important , due for mammogram due for colonoscopy walkign is good for bone health along with calcium and D intake in your diet at least 1500 mg and 2000 IU respectively you received a tetanus/whooping cough booster today and a pneumonia bossterFollow up:6 months for general care /uefrugldhptG66.010 Personal history of colonic polypsReferral:Alessandro Hickman MD, RcqzwcdsqztqqlkhZ70.31 Encntr screen mammogram for malignant neoplasm of breastNew Xrays:MG Screening RswogppfcU23.89 Oth disrd of bone density and structure, multiple sitesNew Xrays:Dexa Screen Axial Skeleton Lumbar (Hips) R22.32 Localized swelling, mass and lump, left upper limbComments:it is likely a benign lump, 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
[2017-07-23 11:20] VITALS: BP 139/51
--- NOTE | 2017-07-23 12:04 | UC ---
Respiratory Complaint HPI - HPI Summary HPI Summary: 76 yo female with cough /congeston and sore throat x 5 days no f/c no CP or sob no n/v/d - History of Current Complaint Chief Complaint: UCRespiratory Stated Complaint: SORE THROAT Time Seen by Provider: 07/23/17 11:58 Hx Obtained From: Patient Hx Last Menstrual Period: 1975 Onset/Duration: Gradual Onset, Lasting Days Timing: Constant Severity Initially: Mild Severity Currently: Moderate Pain Intensity: 0 Pain Scale Used: 0-10 Numeric Character: Cough: Nonproductive Aggravating Factors: Nothing Alleviating Factors: Nothing Associated Signs And Symptoms: Positive: Nasal Congestion - Allergies/Home Medications Allergies/Adverse Reactions: Allergies Allergy/AdvReac Type Severity Reaction Status Date / Time cephalexin Allergy Intermediate Rash Verified 07/23/17 11:03 iodine Allergy Intermediate Swelling Verified 07/23/17 11:03 nickel Allergy Mild Rash Verified 07/23/17 11:03 atorvastatin Allergy See Comment Verified 07/23/17 11:03 gluten AdvReac Abdominal Verified 07/23/17 11:03 Pain adhesive Allergy Rash And Uncoded 07/23/17 11:03 Itching contrast dye Allergy Swelling Uncoded 07/23/17 11:03 Of Face,Lips,& Throat, TONGUE Home Medications: Home Medications Clopidogrel TAB* [Plavix TAB*] 75 mg PO DAILY 07/23/17 [History Confirmed ] Spironolactone TAB* [Aldactone TAB*] 25 mg PO DAILY 07/23/17 [History Confirmed 07/23/17] PMH/Surg Hx/FS Hx/Imm Hx Previously Healthy: Yes Endocrine History: Diabetes Cardiovascular History: Cardiac Disease Respiratory History: Bronchitis - Surgical History Surgical History: Yes Surgery Procedure, Year, and Place: stents placed - 06/07/2010 - [facility]: MRI CONDITIONAL ,SPATIAL GRADIENT 1.5T TO 3.0 T : 720 GAUSS/CM, NORMAL MODE; MULTILINK TETRA - CONDITIONAL UP TO 3.0T MAX SPAT.GRAD 3.3T/METER - INFORMATION IS IN PT'S EMR - UNDER "IMPLANT INFORMATION -DATED 03/04/14. New stent placed in February 2018. Lt ankle fx repair,. gallbladder and hysterectomy 1975,. TOTAL RT KNEE REPLACEMENT 2013. CATARACT. Rt EYE - CORRECTIVE MUSCLE - Family History Known Family History: Positive: Cardiac Disease - Social History Alcohol Use: None Substance Use Type: None Substance Use Comment - Amount & Last Used: for chronic back pain Smoking Status (MU): Former Smoker Type: Cigarettes Amount Used/How Often: 1/pck day Length of Time of Smoking/Using Tobacco: 50+ Have You Smoked in the Last Year: No When Did the Patient Quit Smoking/Using Tobacco: 2012 - Immunization History Most Recent Influenza Vaccination: 2017 Most Recent Tetanus Shot: unknown Most Recent Pneumonia Vaccination: 2011 Review of Systems Constitutional: Negative Skin: Negative Eyes: Negative ENT: Sore Throat, Nasal Discharge, Sinus Congestion, Sinus Pain/Tenderness Respiratory: Cough Cardiovascular: Negative Gastrointestinal: Negative Genitourinary: Negative Motor: Negative Neurovascular: Negative Musculoskeletal: Negative Neurological: Negative Psychological: Negative Is Patient Immunocompromised?: No All Other Systems Reviewed And Are Negative: Yes Physical Exam Triage Information Reviewed: Yes Appearance: Well-Appearing, No Pain Distress, Well-Nourished Vital Signs: Initial Vital Signs Temp 98.1 F 07/23/17 11:10 Pulse 52 07/23/17 11:10 Resp 20 07/23/17 11:10 BP 139/51 07/23/17 11:10 Pulse Ox 100 07/23/17 11:10 Vital Signs Reviewed: Yes Eyes: Positive: Conjunctiva Clear ENT: Positive: Hearing grossly normal, Pharyngeal erythema, Nasal congestion, TMs normal, Uvula midline. Negative: Nasal drainage, Tonsillar swelling, Tonsillar exudate, Trismus, Muffled voice, Hoarse voice, Dental tenderness, Sinus tenderness Neck exam: Normal Neck: Positive: Supple, Nontender, No Lymphadenopathy Respiratory: Positive: Lungs clear, Normal breath sounds, No respiratory distress, No accessory muscle use, Rhonchi - with forced expiration Cardiovascular: Positive: RRR, No Murmur Musculoskeletal: Positive: ROM Intact, No Edema Neurological: Positive: Alert Psychological Exam: Normal Skin Exam: Normal UC Diagnostic Evaluation - Laboratory O2 Sat by Pulse Oximetry: 100 - normal/not hypoxic Respiratory Course/Dx - Differential Dx/Diagnosis Provider Diagnoses: acute bronchitis. pharyngitis Discharge - Sign-Out/Discharge Documenting (check all that apply): Discharge/Admit/Transfer - Discharge Plan Condition: Stable Disposition: HOME Prescriptions: Amoxicillin PO (*) [Amoxicillin 875 MG (*)] 875 mg PO BID #14 tab Patient Education Materials: Acute Bronchitis (ED) Referrals: Clarissa Brock MD [Primary Care Provider] - 5 Days - Billing Disposition and Condition Condition: STABLE Disposition: HOME
== END 2017-07-23 12:06 | disposition home or self-care (01) ==
LOC: UCCORT 10:46
DX: J20.9 Acute bronchitis, unspecified (principal); J02.9 Acute pharyngitis, unspecified; Z88.1 Allergy status to other antibiotic agents; Z88.3 Allergy status to other anti-infective agents; Z91.041 Radiographic dye allergy status; Z88.8 Allergy status to other drugs, medicaments and biological substances; Z91.048 Other nonmedicinal substance allergy status; E11.9 Type 2 diabetes mellitus without complications; Z87.891 Personal history of nicotine dependence
CPT/HCPCS: 99212; G0463

== ENCOUNTER 2018-09-11 09:44 | Observation (INO) | payer MEDICARE ==
[2018-09-11] MEDS ORDERED: diPHENhydraMINE IV* 50 MG/ML 1 ml VIAL (BENADRYL) IV ONE (13:00)
[2018-09-11] MEDS ORDERED: methylPREDNISolone SOD 40 MG* 1 ML VIAL IV ONE (13:00)
[2018-09-11] MEDS ORDERED: diPHENhydraMINE IV* 50 MG/ML 1 ml VIAL (BENADRYL) ONE (13:15)
[2018-09-11] MEDS ORDERED: Heparin 2 UNITS/ML IVPREMIX* 3,000 UNIT/1,500 ML BAG IV ONE (13:22)
[2018-09-11] MEDS ORDERED: nitroGLYCERIN DRIP* 25,000 MCG/250 ML BTL ONE (13:22)
[2018-09-11] MEDS ORDERED: Midazolam* 1 MG/ML 5 ML VIAL (5 MG) ONE (13:22)
[2018-09-11] MEDS ORDERED: Heparin(*) 1000 UNIT/ML 10 ML VIAL CATH LAB IV ONE (13:22)
[2018-09-11] MEDS ORDERED: fentaNYL* 50 MCG/ML 2 ML VIAL (100 MCG VIAL) ONE (13:22)
[2018-09-11] MEDS ORDERED: Iodixanol 320 (CONTRAST) 100 ML SDV ONE ×2 (13:22→14:33)
[2018-09-11] MEDS ORDERED: Lidocaine 1% INJ* 10 MG/ML 30 ML SDV ONE (13:23)
[2018-09-11] MEDS ORDERED: Ticagrelor* 90 MG TAB PO ONE (14:23)
[2018-09-11] MEDS ORDERED: Nitroglycerin TAB 0.4 MG* 0.4 MG TAB SL PRN ×2 (14:58→15:02)
[2018-09-11] MEDS ORDERED: NS 0.9% 1000 ML** 1,000 ML IV SCH (15:00)
[2018-09-11] MEDS ORDERED: traMADol TAB* 50 MG PO PRN (15:02)
[2018-09-11] MEDS ORDERED: DEXTROSE 4 GM PO PRN (15:02)
[2018-09-11] MEDS ORDERED: LORazepam TAB(*) 0.5 MG PO PRN (15:02)
[2018-09-11] MEDS ORDERED: [UNRECOGNIZED DRUG - OTHER] PO PRN (15:02)
[2018-09-11] MEDS ORDERED: Insulin ASPART (NF) 100 UNIT/ML VIAL SUBCUT SCH (16:00)
[2018-09-11] MEDS ORDERED: Dextrose 50% Syringe 50 ML* 25 GM/50 ML SYRINGE IV PUSH PRN (17:02)
[2018-09-11] MEDS ORDERED: Pantoprazole TAB * 40 MG TAB PO SCH (18:00)
[2018-09-11] MEDS: Carvedilol TAB* 6.25 MG PO SCH (20:10)
[2018-09-11] MEDS: Ferrous Sulfate TAB* 325 MG PO SCH (20:11)
[2018-09-11] MEDS ORDERED: CMCS:Rosuvastatin (NF) 20 MG TAB PO SCH (21:00)
[2018-09-11] MEDS ORDERED: Nitro Patch/OINT Remove PATCH OFF SCH (21:00)
[2018-09-12] MEDS ORDERED: Insulin LISPRO* FOR INSULIN PUMP SUBCUT SCH (02:00)
[2018-09-12 05:46] LABS: ABS Monocytes 0.3 10^3/ul (0-0.8); ABS Neutrophils 12.5 10^3/ul (1.5-7.7); Hematocrit 33 % (35-47); Hemoglobin 11.1 g/dL (12.0-16.0); Lymphocyte % 7.2 %; Mean Corpuscular HGB Conc 33 g/dL (31-36); Mean Corpuscular Hemoglobin 29 pg (27-31); Mean Corpuscular Volume 86 fL (80-97); Mean Platelet Volume 8.9 fL (7.4-10.4); Platelet Count 233 10^3/uL (150-450); Red Blood Count 3.89 10^6 /uL (3.70-4.87); Red Cell Distribution Width 15 % (10-15); White Blood Count 13.9 10^3/uL (3.5-10.8)
[2018-09-12] MEDS ORDERED: Levothyroxine TAB* 125 MCG TAB PO SCH (06:00)
[2018-09-12 06:03] LABS: BUN/Creatinine Ratio 28.9 (8-20); Calcium 8.9 mg/dL (8.6-10.3); EGFR African American 73.9 (>60); Potassium 4.6 mmol/L (3.5-5.0)
[2018-09-12] MEDS: Ferrous Sulfate TAB* 325 MG PO SCH (08:59)
[2018-09-12] MEDS: Carvedilol TAB* 6.25 MG PO SCH (08:59)
[2018-09-12] MEDS ORDERED: Diltiazem CD CAP* 120 MG PO SCH (09:00)
[2018-09-12] MEDS ORDERED: Spironolactone TAB* 25 MG PO SCH (09:00)
[2018-09-12] MEDS ORDERED: Clopidogrel TAB* 75 MG PO SCH ×2 (09:00)
[2018-09-12] MEDS ORDERED: DULoxetine DR CAP* 30 MG CAP.DR PO SCH (09:00)
[2018-09-12] MEDS ORDERED: Losartan TAB* 25 MG PO SCH (09:00)
[2018-09-12] MEDS ORDERED: Aspirin EC TAB* 81 MG TAB.EC PO SCH (09:00)
[2018-09-12] MEDS ORDERED: Nitroglycerin 0.2 MG/HR PATCH* (5 MG) TRANSDERM SCH (09:00)
[2018-09-12] MEDS ORDERED: Spironolactone TAB* 25 MG PO ONE (10:48)
[2018-09-12 11:23] VITALS: BP 149/54
--- NOTE | 2018-09-12 13:45 | DS ---
CC: Dr. Canales; Dr. Clarissa Brock * DATE OF ADMISSION: 09/11/2018. TENTATIVE DATE OF DISCHARGE PENDING NO COMPLICATIONS: 09/12/2018. ATTENDING PHYSICIAN: Dr. Justin Chatterjee * (dictated by Nina Pina NP). ADMITTING DIAGNOSES: 1. Abnormal cardiovascular stress test. 2. History of hypertension. 3. History of diastolic heart failure. 4. History of pulmonary hypertension. 5. History of chronotropic insufficiency. DISCHARGE DIAGNOSES: 1. Abnormal cardiovascular stress test, status post drug-eluting stent to proximal left circumflex on aspirin, Plavix, beta tonio, and statin therapy. 2. History of hypertension, blood pressure has been uncontrolled during hospital stay, thus Aldactone increased to 50 mg a day. The patient has an outstanding script sent to [facility] in [place] which is to be drawn on Monday, September 17, 2018 to re-evaluate for hyperkalemia, K today is 4.6. Goal blood pressure less than 130/80 given history of diabetes. 2. History of hyperlipidemia, on statin therapy, goal less than 70. 3. History of diabetes. Blood glucose was elevated today; however, the patient admits to eating a brownie last night. She states that she follows [facility] for diabetes care. Last hemoglobin A1c was 6.8 percent. She was instructed to follow- up with them for further management. PROCEDURES PERFORMED: Cardiac catheterization 09/11/[address] Justin Chatterjee. Left main distal 20 percent lesion, LAD normal, circumflex proximal 75 percent lesion, RCA patent. Intervention performed: The patient had a drug- eluting stent to proximal circumflex. Complications: None. COURSE OF HOSPITAL STAY: This is a pleasant, 77-year-old female patient who follows Dr. Canales at our practice who was recently risk stratified due to vague complaints of fatigue, chest pain, and shortness of breath via a stress test which was abnormal; thus, the patient presented to [facility] on 09/11/2018 for elective cardiac catheterization. Prior to the procedure performed, the patient had blood work on 09/07/2018. At that time, white count was 8.9, hemoglobin was 11, platelets were 241, INR was 1.01, sodium was 136, potassium was 4.6, creatinine was 0.89. The patient underwent the above mentioned procedure which resulted in drug-eluting stent placement to the proximal circumflex. Postprocedure was transfer to the ICU where she has been observed overnight. There have been no events. Right groin exit site is soft and nontender. She has been up and ambulating to the chair with no complications. She is in sinus rhythm with occasional VPC on telemetry. She has been compliant with medications. Unfortunately last night she did eat a brownie and blood glucose level has been uncontrolled. Last blood sugar was 341. The patient states her last hemoglobin A1c which was obtained by [facility], who manages her diabetes care, was 6.8 percent. We have encouraged her to follow -up with them. Blood pressure has also been elevated throughout the course of this hospital stay. Most recent blood pressure was 169/48. We did increase her Aldactone to 50 mg a day. Potassium today was 4.6 and creatinine 0.9, and thus I have ordered for repeat BMP early next week which is to be done at [facility] in [place]. Script has been sent there. The patient is aware that goal blood pressure is less than 130/80. Today's blood work: Sodium 135, potassium 4.6, chloride 106, carbon dioxide 21, BUN 26, creatinine 0.9; white count 13.9, hemoglobin 11.1, hematocrit 33, platelets 233. Pending no complications, she will be discharged home later today. Her right groin access site was inspected. Dressing was removed. She has strong distal right dorsalis pedis pulses palpated. Unfortunately, due to her body habitus, it was very difficult to palpate her right groin access site; however, there is no hematoma. There is very minimal ecchymosis surrounding the access site. Nontender to palpation. No bleeding or oozing. DISCHARGE MEDICATIONS: 1. Aspirin 81 mg a day. 2. Coreg 12.5 mg p.o. b.i.d. 3. Plavix 75 mg a day. 4. Diltiazem 120 mg a day. 5. Ferrous Sulfate 325 mg p.o. b.i.d. 6. Insulin as instructed. 7. Levothyroxine 125 mcg a day. 8. Irbesartan 75 mg a day. 9. Transdermal nitroglycerin as instructed. 10. Protonix 40 mg a day. 11. Rosuvastatin 20 mg p.o. at bedtime. 12. Aldactone 50 mg a day. 13. Tramadol 50 mg a day. The patient states she has an outstanding prescription supply for Clopidogrel therapy. She is aware that she needs to continue aspirin 81 in combination with Plavix 75 mg a day uninterrupted given recent drug-eluting stent placement. Blood work to be obtained on an outpatient basis, BMP on 09/17/2018 at [facility] in [place]. Script has been sent. FOLLOW-UP APPOINTMENTS: The patient is to see Millie Luis NP on 09/20/2018 at 10:45 a.m. She is to see primary physician, Dr. Brock, in seven to ten days and [facility] in follow-up to discuss diabetes management. ACTIVITY RESTRICTIONS: No driving for two to three days. No lifting more than five to ten pounds for three to five days. She is aware that she may shower, but not take a bath or swim, and she is not to soak right small access site. Dr. Justin Chatterjee has personally seen and examined the patient and agrees to the above assessment and plan. NINA PINA NP [id number]/CPS #: [id number]
[2018-09-13] MEDS ORDERED: Spironolactone TAB* 25 MG PO SCH (09:00)
== END 2018-09-12 12:15 | disposition home or self-care (01) ==
LOC: CHICATH 09:44 → ICU 15:40
PROVIDERS: ADMIT Internal Medicine Cardiovascular Disease; ATTEND Internal Medicine Cardiovascular Disease
DX: I25.118 Atherosclerotic heart disease of native coronary artery with other forms of angina pectoris (principal); R94.39 Abnormal result of other cardiovascular function study; I10 Essential (primary) hypertension; I50.30 Unspecified diastolic (congestive) heart failure; I27.20 Pulmonary hypertension, unspecified; I49.8 Other specified cardiac arrhythmias; Z79.82 Long term (current) use of aspirin; E78.5 Hyperlipidemia, unspecified; E11.9 Type 2 diabetes mellitus without complications; G47.30 Sleep apnea, unspecified
CPT/HCPCS: 36415; 80048; 85025; 85347; 87641; 93005; A9270-GY; G0378; J1200; J1644; J2250; J2920; J3010

== ENCOUNTER 2018-11-17 11:16 | Emergency (ER) | payer MEDICARE ==
--- OUTSIDE RECORDS SUMMARY | 2018-11-17 11:29 | XMS REPORT | Continuity of Care Document ---
:1940 External Reference #:[id number] Author Name Gonzalo Canales M.D. (transmitted by agent of provider Manisha Smith) Address [address] [place] [id number] Care Team Providers Name Role Phone [facility] - Care Team Information Restaurant Rec[employer]iter [phone] Endocrinology, Diabetes & Metabolism Gonzalo Canales MD - Cardiovascular Care Team Information Restaurant [employer] [phone] Disease Problems Active Problems Provider Date Benign essential hypertension Clarissa Brock M.D. Onset: 08/19/2011 Coronary atherosclerosis Clarissa Brock M.D. Onset: 08/19/2011 Celiac disease Clarissa Brock M.D. Onset: 08/19/2011 Hypothyroidism Clarissa Brock M.D. Onset: 08/19/2011 Mixed hyperlipidemia Miguel Solares M.D. Onset: 08/26/2011 Patient post percutaneous transluminal Miguel Solares M.D. Onset: coronary angioplasty Morbid obesity Gonzalo Canales M.D. Onset: 01/20/2012 Electrocardiogram abnormal Gonzalo Canales M.D. Onset: 01/20/2012 Left bundle branch block Gonzalo Canales M.D. Onset: 01/20/2012 Pure hypercholesterolemia SIVA Jones Onset: 07/09/2013 Degenerative cervical spinal stenosis Clarissa Brock M.D. Onset: 05/22/2014 Note: worse at C5/C6 Chronic anxiety Clarissa Brock M.D. Onset: 05/22/2014 Former heavy tobacco smoker Clarissa Brock M.D. Onset: 05/22/2014 Note: quit 2009 50 pk yr Type 1 diabetes mellitus Clarissa Brock M.D. Onset: 05/22/2014 Sleep apnea Clarissa Brock M.D. Onset: 05/22/2014 Osteopenia Clarissa Brock M.D. Onset: 05/23/2011 Note: L spine Type 2 diabetes mellitus Clarissa Brock M.D. Onset: 04/23/2015 Note: insulin pump Microalbuminuric diabetic nephropathy Onset: Arthroplasty of knee Tracy Figueroa M.D. Onset: 10/09/2015 Cervical spondylosis without myelopathy Spencer Albarado M.D. Onset: 02/01/2016 Gastroesophageal reflux disease Clarissa Brock M.D. Onset: 03/22/2016 Female stress incontinence Clarissa Brock M.D. 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 Branham Social History Type Date Description Comments Sex Unknown Cigarette Use Pack Years - 52 Tobacco Use Start: Unknown quit in 2011 Smoking Status Reviewed: 10/24/18 quit in 2011 ETOH Use Denies alcohol use Tobacco Use Start: Unknown End: Patient is a former Quit June 16, 2011 Unknown smoker Recreational Drug Use Denies Drug Use Exercise Type/Frequency Exercises regularly cardiac rehab Allergies, Adverse Reactions, Alerts Active Allergies Reaction Severity Comments Date Cephalexin rash 08/25/2011 Iodine skin irritation 08/25/2011 contrast dye tongue swelling 08/25/2011 Adhesive 04/09/2012 Nickel 04/09/2012 Lipitor cramps on 80mg . tolerates 20 mg 05/16/2012 Bactrim Causes kidney failure 03/23/2018 Gluten 10/16/2018 Inactive Allergies NKDA 08/18/2011 Medications Active Medications SIG Qnty Indications Ordering Date Provider Spironolactone 1 by mouth every day 30tabs Gonzalo Grady 10/24/2018 25mg Allison Canales Tablets Clobetasol Propionate apply once nightly 30gm Rocío Smith, 10/16/2018 N.P. 0.05% Ointment Betamethasone Apply to vulva Rocío Smith, 10/16/2018 Dipropionate N.P. 0.05% Ointment Augmented Apply to vulva daily 45gm Rocío Luis, 10/16/2018 Betamethasone N.P. Dipropionate 0.05% Ointment Clotrimazole 3 one applicator full 21gm Laine Alvarenga, 10/12/2018 2% Cream in vagina x 3 days Nystatin please apply to the 60gm B37.3 Gypsy Holly, 08/31/2018 [id number]/GM affected area twice Cream daily Blood Pressure take bp 1-2x daily 1units I10 Millie S. 03/30/2018 Monitor Automatic Toby N.PMili With Large Cuff Kit Nitroglycerin Unwrap And Apply 1 90units I25.118 Millie S. 03/30/2018 0.2mg/HR Patch Once Daily, Toby N.PMlii Patches 24HR Leave On For 12-14 Hours(Wait 10-12 Hours Before Next Patch) Apply In The Morning And Remove AT hs Shingrix intramuscular x 1 1units Clarissa 10/26/2017 50mcg then repeat in 4 Allison Brock Suspension Rec months Pantoprazole Sodium Take 1 Tablet By 60tabs K21.9 Clarissa 10/26/2017 Mouth Daily Allison Brock 40mg Tablets Irbesartan take 1 tablet by 90tabs Gonzalo Grady 10/02/2017 75mg Tablets mouth every day Allison Canales Cardizem CD 1 by mouth once a 90caps Gonzalo Grady 01/16/2017 120mg Caps day Allison Canales ER 24HR Compression Stockings 30-40 mm hg as 1Pair Clarissa 11/15/2016 needed Allison Brock Misc Rosuvastatin Calcium 1 tablet by mouth 90tabs Gonzalo Grady 03/24/2016 every day Allison Canales 20mg Tablets Tramadol HCL 1-2 by mouth every 8 90tabs M19.90 Sergio Cruz 11/24/2014 50mg hours a day as Allison Gonzalez Tablets needed for pain Carvedilol 2 tablets by mouth 360tabs Gonzalo Grady 09/11/2014 6.25mg in the Am 1 tablet Allison Canales Tablets by mouth in the PM Cymbalta 1 by mouth every 90caps Sergio E. 07/15/[address] sudeep Gonzalez M.D. Part Aspirin Ec Lo-Dose 1 tablet daily. 90tabs Unknown 81mg Tablets Iron 2 tablet po daily 180tabs Unknown 325(65Fe) mg Tablets Novolog via insulin pump 1bottle Unknown 100Unit/ML Solution True Test Strips Unknown Ativan 1 by mouth every day 30tabs Clarissa 0.5mg Tablets as needed for severe Allison Brock anxiety attack Nitrostat one sl q5min up to 3 25tabs Gonzalo F. 0.4mg Tablets doses as needed Allison Canales Sub Clopidogrel Bisulfate 1 tablet by mouth 90tabs Gonzalo Rae. daily Allison Canales 75mg Tablets Levothyroxine Sodium 1 by mouth every day Unknown 125mcg Tablets Vitamin D3 Super 1 by mouth every day Unknown Strength 2000Unit Capsules History Medications Fluconazole 1 tab by mouth 7tabs B37.3 Laine Alvarenga MD 10/01/2018 - 100mg Tablets daily x 7 days 10/23/2018 Medications Administered in Office Medication SIG Qnty Indications Ordering Provider Date Triamcinolone (Kenalog) Fouzia oRjas RPA-Carlos Alberto 05/15/2015 Injection Synvisc Or Synvisc-One Tracy Figueroa M.D. 11/29/2013 Injection 1 MG Injection Hyaluron Or Tracy Figueroa M.D. 11/29/2013 Derivative,Orthovisc,For Intra-Articular Inj Per Dose Injection Hyaluron Or Tracy Figueroa M.D. 11/22/2013 Katrina,Orthoviscarlos albertoFor Intra-Articular Inj Per Dose Injection Hyaluron Or Tracy Figueroa M.D. 11/15/2013 Derivative,Orthovisc,For Intra-Articular Inj Per Dose Injection Inj, Regadenoson, 0.1 MG Frankie Rogers M.D. 10/23/2013 Injection Technetium TC 99M Tetrofosmin, Frankie Rogers M.D. 10/23/2013 Per Unit Dose Up To 40 Millicuries Injection Immunizations CPT Code Status Date Vaccine Lot # [id number] Given 12/25/2017 Fluzone High Dose 59562 Given 07/18/2017 Pneumonia Vaccine [id number] 08882 Given 07/18/2017 Tdap - Tetanus/Diptheria/Acellular Pertussis [id number] 53824 Given 12/22/2015 Influ Virus Vaccine, Quadrivalent, Split Virus, Im Fluzone not PF Q2039 Given 12/19/2014 Flu Vaccine NOS Q2037 Given 08/18/2014 Fluvirin Im 3Yrs And Older 70252 Given 05/22/2014 Pneumococcal Conjugate Vaccine 13 Valent For [id number] Intramuscular Use 51594 Given 12/05/2013 Influenza Virus 3Yrs & Over Q2037 Given 12/01/2013 Fluvirin Im 3Yrs And Older 17947 Given 04/09/2012 Zoster (Zostavax) [id number] 56252 Given 01/10/2012 Pneumonia Vaccine 16697 Given 01/10/2012 Pneumonia Vaccine 42150 Given 01/10/2012 Pneumonia Vaccine [id number] Vital Signs Date Vital Result Comment 10/24/2018 11:07am Height 64 inches 5'4" Weight 250.00 lb Heart Rate 80 /min BP Systolic Sitting 148 mmHg Ra, large BP Diastolic Sitting 60 mmHg Ra, large BP Systolic Standing 160 mmHg Ra, large BP Diastolic Standing 64 mmHg Ra, large BMI (Body Mass Index) 42.9 kg/m2 Ejection Fraction 65%-70% echo 06/18/18 10/16/2018 10:59am Height 64 inches 5'4" Weight 253.25 lb Heart Rate 56 /min BP Systolic 137 mmHg BP Diastolic 58 mmHg O2 % BldC Oximetry 98 % BMI (Body Mass Index) 43.5 kg/m2 Last Menstrual Period [id number] Results Test Date Facility Test Result H/L Range Note Basic Metabolic 10/16/2018 [facility] Sodium 137 mmol/L Normal 135-[address] [place] [address] [phone] Chloride 104 mmol/L Normal 101-111 Co2 Carbon Dioxide 25 mmol/L Normal 22-32 Glucose 157 mg/dL High 70-100 Blood Urea Nitrogen 35 mg/dL High 6-24 Creatinine 1.14 mg/dL High 0.51-0.95 BUN/Creatinine Ratio 30.7 High 8-20 Calcium 9.5 mg/dL Normal 8.6-10.3 Egfr Non- 46.5 >60 Egfr 56.2 >60 1 Potassium 5.1 mmol/L High 3.5-5.0 Anion Gap 8 mmol/L Normal 2-11 Basic Metabolic 09/17/2018 [facility] Sodium 136 mmol/L Normal 135-[address] [place] [address] [phone] Potassium 4.6 mmol/L Normal 3.5-5.0 Chloride 103 mmol/L Normal 101-111 Co2 Carbon Dioxide 28 mmol/L Normal 22-32 Anion Gap 5 mmol/L Normal 2-11 Glucose 189 mg/dL High 70-100 Blood Urea Nitrogen 30 mg/dL High 6-24 Creatinine 1.01 mg/dL High 0.51-0.95 BUN/Creatinine Ratio 29.7 High 8-20 Calcium 9.0 mg/dL Normal 8.6-10.3 Egfr Non- 53.4 >60 Egfr 64.7 >60 2 Laboratory test 09/11/2018 [facility] Poc Activated 267 seconds [address] [place] [address] [phone] Laboratory test 09/11/2018 [facility] Poc Activated 203 seconds [address] [place], [place] [id number] [phone] Cath Panel 09/07/2018 [facility] Partial 35.3 seconds Normal 26.0- [address] Thrombo Time 38.0 [place] [address] PTT [phone] CBC Auto Diff 09/07/2018 [facility] White Blood 8.9 10^3/uL Normal 3.5-[address] Count 0.8 [place] [address] [phone] Red Blood Count 3.87 10^6/uL Normal 3.70-4.87 Hemoglobin 11.0 g/dL Low 12.0-16.0 Hematocrit 33 % Low 35-47 Mean Corpuscular Volume 86 fL Normal 80-97 Mean Corpuscular Hemoglobin 28 pg Normal 27-31 Mean Corpuscular HGB Conc 33 g/dL Normal 31-36 Red Cell Distribution Width 14 % Normal 10-15 Platelet Count 241 10^3/uL Normal 150-450 Mean Platelet Volume 9.2 fL Normal 7.4-10.4 Abs Neutrophils 6.4 10^3/uL Normal 1.5-7.7 Abs Lymphocytes 1.5 10^3/uL Normal 1.0-4.8 Abs Monocytes 0.7 10^3/uL Normal 0-0.8 Abs Eosinophils 0.3 10^3/uL Normal 0-0.6 Abs Basophils 0.1 10^3/uL Normal 0-0.2 Abs Nucleated RBC 0.0 10^3/uL Granulocyte % 71.9 % Lymphocyte % 16.8 % Monocyte % 7.4 % Eosinophil % 2.9 % Basophil % 1.0 % Nucleated Red Blood Cells % 0.0 Inr/Protime 09/07/2018 [facility] Inr 1.01 Normal 0.82-1.09 5 [address] [place] [address] [phone] Basic Metabolic 09/07/2018 [facility] Sodium 136 mmol/L Normal 135-145 Panel [address] [place] [address] [phone] Potassium 4.6 mmol/L Normal 3.5-5.0 Chloride 105 mmol/L Normal 101-111 Co2 Carbon Dioxide 22 mmol/L Normal 22-32 Anion Gap 9 mmol/L Normal 2-11 Glucose 134 mg/dL High 70-100 Blood Urea Nitrogen 24 mg/dL Normal 6-24 Creatinine 0.89 mg/dL Normal 0.51-0.95 BUN/Creatinine Ratio 27.0 High 8-20 Calcium 9.2 mg/dL Normal 8.6-10.3 Egfr Non- 61.8 >60 Egfr 74.8 >60 6 Laboratory 05/15/2018 [facility] TSH (Thyroid 0.48 Normal 0.34 -5.60 test finding 101 [facility] Stim Horm) mcIU/[place] [address] [phone] Free T4 (Free Thyroxine) 0.99 ng/dL Normal 0.61-1.12 Lipid Profile 05/15/2018 [facility] Triglycerides 74 mg/dL 7 (Trig/Chol/HDL) [address] [place] [address] [phone] Cholesterol 144 mg/dL 8 HDL Cholesterol 50.7 mg/dL 9 LDL Cholesterol 79 mg/dL 10 Comp Metabolic 05/15/2018 [facility] Sodium 141 mmol/L Normal 135-[address] [place] [address] [phone] Potassium 4.6 mmol/L Normal 3.5-5.0 Chloride 108 mmol/L Normal 101-111 Co2 Carbon Dioxide 28 mmol/L Normal 22-32 Anion Gap 5 mmol/L Normal 2-11 Glucose 171 mg/dL High 70-100 Blood Urea Nitrogen 20 mg/dL Normal 6-24 Creatinine 0.83 mg/dL Normal 0.51-0.95 BUN/Creatinine Ratio 24.1 High 8-20 Calcium 9.6 mg/dL Normal 8.6-10.3 Total Protein 6.1 g/dL Low 6.4-8.9 Albumin 4.0 g/dL Normal 3.2-5.2 Globulin 2.1 g/dL Normal 2-4 Albumin/Globulin Ratio 1.9 Normal 1-3 Total Bilirubin 0.80 mg/dL Normal 0.2-1.0 Alkaline Phosphatase 80 U/L Normal 34-104 Alt 11 U/L Normal 7-52 Ast 10 U/L Low 13-39 Egfr Non- 67.0 >60 Egfr 81.1 >60 11 Lipid Panel 05/15/2018 [facility] Creatine 24 U/L Normal 10- 223 12 - J[facility] [address] Kinase(CK) [place] [address] [phone] 1 Because ethnic data is not always [...] 5 Kidney failure <15 (or dialysis) 2 Because ethnic data is not always readily [...] 15-29 5 Kidney failure <15 (or dialysis) 3 Social Service Assistant: [id number] Reference Range: 74-125 seconds 4 Social Service Assistant: [id number] Reference Range: 74-125 seconds 5 Standard intensity warfarin therapeutic range: 2.0-3.0 High intensity warfarin therapeutic range: 2.5-3.5 6 Because ethnic data is not always readily [...] 15-29 5 Kidney failure <15 (or dialysis) 7 Desirable: <150 Borderline High: 150-199 High: 200-499 Very High: >500 8 Desirable: <200 Borderline High: 200-239 High: >239 9 Low: <40 Desirable: 40-60 High: >60 10 Desirable: <100 Near Optimal: 100-129 Borderline High: 130-159 High: 160-189 Very High: >189 11 Because ethnic data is not always readily [...] 15-29 5 Kidney failure <15 (or dialysis) 12 FASTING 1m Procedures Date Code Description Status 10/24/2018 75026 EKG Tracing & Interpretation Completed 09/20/2018 49835 EKG Tracing & Interpretation Completed 09/20/2018 [id number] Mammogram Completed 09/11/2018 89516 Cath PLMT&NJX L Ventriculog Img S&I Completed 09/11/2018 19189 Percutaneous Transcatheter Placement Of Intracoronary Completed Stent 09/07/2018 [id number] Diabetic Foot Exam Completed 08/10/2018 75080 Treadmill Interp/Report Only Completed 08/10/2018 76755 Stress Test Supervsn W/Out I/R Completed 06/18/2018 66318 ECHO Transthoracic, Real-Time 2D With Doppler And Completed Color Flow 06/18/2018 14760 ECHO Transthoracic, Real-Time 2D With Doppler And Completed Color Flow 05/30/2018 06894 EKG Tracing & Interpretation Completed 05/29/2018 [id number] Diabetic Foot Exam Completed 05/16/2018 98968 Holter Monitor Review (24 hr)dr review & interp only Completed 05/14/2018 94848 ECG Monitor/Recording W/Visual Superimposition Completed Scanning 03/28/2018 [id number] Diabetic Foot Exam Completed 03/09/2018 [id number] Diabetic Foot Exam Completed 03/02/2018 [id number] Diabetic Foot Exam Completed 01/08/2018 957450895 Diabetic Foot Exam Completed 07/21/2017 [id number] Bone Mineral Density Test Completed 07/21/2017 [id number] Mammogram Completed 07/06/2016 [id number] Diabetic Retinal Eye Exam Completed 04/21/2016 96269953 Mammogram Completed 05/18/2015 360106591 Diabetic Retinal Eye Exam Completed 05/14/2015 561234338 Diabetic Retinal Eye Exam Completed 03/26/2015 275409706 Bone Mineral Density Test Completed 03/26/2015 51195471 Mammogram Completed 01/02/2014 434094402 Diabetic Retinal Eye Exam Completed 05/20/2013 63046570 Mammogram Completed 01/02/2012 87137330 Mammogram Completed 09/14/2011 312421159 Bone Mineral Density Test Completed 03/06/2009 50228747 Colonoscopy Completed Medical Devices Description No Information Available Encounters Type Date Location Provider Dx Diagnosis Office Visit 10/16/2018 [facility] Rocío Smith N.P. N76.2 Acute vulvitis 11:00a [facility] N76.89 Other specified inflammation of vagina and vulva Office Visit 10/01/2018 10:10a [facility] Internal Clarissa B37.3 [facility] vagina Office Visit 09/20/2018 11:00a [facility] Millie S. I44.7 Left bundle -branch Foster, N.P. block, unspecified I25.118 Athscl heart disease of [place] cor art w ot ang pctrs I10 Essential (primary) hypertension E78.00 Pure hypercholesterolemia, unspecified Z98.61 Coronary angioplasty status Office Visit 08/31/2018 11:40a [facility] Internal Gypsy Avni, Z00.01 Encounter for Medicine - [facility] general adult medical exam w abnormal findings R53.83 Other fatigue B37.3 Candidiasis of vulva and vagina Z12.31 Encntr screen mammogram for malignant neoplasm of breast Office Visit 07/04/2018 11:00a [facility] Millie S. I44.7 Left bundle -branch Foster, N.P. block, unspecified I25.118 Athscl heart disease of [place] cor art w oth ang pctrs I10 Essential (primary) hypertension E78.00 Pure hypercholesterolemia, unspecified R00.2 Palpitations Office Visit 05/30/2018 11:20a [facility] Gonzalo Grady R00.2 Palpitations Allison Canales I44.7 Left bundle-branch block, unspecified I25.118 Athscl heart disease of [place] cor art w [facility] pctrs I10 Essential (primary) hypertension E78.00 Pure hypercholesterolemia, unspecified R06.00 Dyspnea, unspecified E66.9 Obesity, unspecified Office Visit 04/30/2018 11:30a [facility] Millie Singer I10 Essential ( primary) Of Eve Luis N.P. hypertension R94.31 Abnormal electrocardiogram [ECG] [EKG] I25.118 Athscl heart disease of [place] cor art w [facility] pctrs I44.7 Left bundle-branch block, unspecified R00.2 Palpitations Assessments Date Code Description Provider 10/24/2018 I44.7 Left bundle-branch block, unspecified Gonzalo Canales M.D. 10/24/2018 I25.118 Atherosclerotic heart disease of Gonzalo Canales M.D. [place] coronary artery with 10/24/2018 I10 Essential (primary) hypertension Gonzalo Canales M.D. 10/24/2018 E78.00 Pure hypercholesterolemia, unspecified Gonzalo Canales M.D. 10/24/2018 E87.5 Hyperkalemia Gonzalo Canales M.D. 10/16/2018 N76.2 Acute vulvitis Teri Machuca.P. 10/16/2018 N76.89 Other specified inflammation of vagina Teri Machuca.Finn and vulva 10/01/2018 B37.3 Candidiasis of vulva and vagina Clarissa Brock M.D. 09/20/2018 I44.7 Left bundle-branch block, unspecified Miguel Solares M.D. 09/20/2018 I44.7 Left bundle-branch block, unspecified Millie Luis N.P. 09/20/2018 I25.118 Atherosclerotic heart disease of Millie Luis, N.PMili [place] coronary artery with 09/20/2018 I10 Essential (primary) hypertension Millie Luis N.P. 09/20/2018 E78.00 Pure hypercholesterolemia, unspecified Millie Luis, N.P. 09/20/2018 Z98.61 Coronary angioplasty status Millie Luis N.P. 09/11/2018 I25.119 Atherosclerotic heart disease of Justin Chatterjee MD, [facility], [place] coronary artery with FSCAI 08/31/2018 Z00.01 Encounter for general adult medical Gpysy Holly MD examination with abnorma 08/31/2018 R53.83 Other fatigue Gypsy Holly MD 08/31/2018 B37.3 Candidiasis of vulva and vagina Gypsy Holly MD 08/31/2018 Z12.31 Encounter for screening mammogram for Gypsy Holly MD malignant neoplasm of 08/10/2018 I25.10 Atherosclerotic heart disease of Gonzalo Canales M.D. [place] coronary artery with 08/10/2018 R07.9 Chest pain, unspecified Gonzalo Canales M.D. 08/10/2018 R06.00 Dyspnea, unspecified Gonzalo Canales M.D. 07/04/2018 I44.7 Left bundle-branch block, unspecified Millie Luis, N.P. 07/04/2018 I25.118 Atherosclerotic heart disease of Millie Luis, N.P. [place] coronary artery with 07/04/2018 I10 Essential (primary) hypertension Millie Luis, N.P. 07/04/2018 E78.00 Pure hypercholesterolemia, unspecified Millie Luis, N.P. 07/04/2018 R00.2 Palpitations Millie Luis N.P. 06/18/2018 R06.00 Dyspnea, unspecified Gonzalo Canales M.D. 06/18/2018 R06.00 Dyspnea, unspecified [place] [facility] Schedule 05/30/2018 R00.2 Palpitations Gonzalo Canales M.D. 05/30/2018 I44.7 Left bundle-branch block, unspecified Gonzalo Canales M.D. 05/30/2018 I25.118 Atherosclerotic heart disease of Gonzalo Canales M.D. [place] coronary artery with 05/30/2018 I10 Essential (primary) hypertension Gonzalo Canales M.D. 05/30/2018 E78.00 Pure hypercholesterolemia, unspecified Gonzalo Canales M.D. 05/30/2018 R06.00 Dyspnea, unspecified Gonzalo Canales M.D. 05/30/2018 E66.9 Obesity, unspecified Gonzalo Caanles M.D. 05/16/2018 R00.2 Palpitations Gonzalo Canales M.D. 05/16/2018 I44.7 Left bundle-branch block, unspecified Gonzalo Canales M.D. 05/16/2018 I47.1 Supraventricular tachycardia Gonzalo Canales M.D. 05/14/2018 R00.2 Palpitations Nurse Visit IC 05/14/2018 I25.118 Atherosclerotic heart disease of Nurse Visit IC [place] coronary artery with 05/14/2018 I44.7 Left bundle-branch block, unspecified Nurse Visit IC 05/14/2018 I47.1 Supraventricular tachycardia Nurse Visit IC 04/30/2018 I10 Essential (primary) hypertension Millie Luis N.P. 04/30/2018 R94.31 Abnormal electrocardiogram [ECG] [EKG] Millie Luis N.P. 04/30/2018 I25.118 Atherosclerotic heart disease of Millie Luis N.PMili [place] coronary artery with 04/30/2018 I44.7 Left bundle-branch block, unspecified Millie Luis N.P. 04/30/2018 R00.2 Palpitations Millie Luis N.P. Plan of Treatment Future Appointment(s):11/23/2018 9:00 am - Millie Luis N.Finn at [facility]10/31/2018 2:40 pm - Rocío Smith N.P. at [facility]10/24/2018 - Gonzalo Canales M.D.I44.7 Left bundle-branch block, unspecifiedFollow up:ov Millie 1 m ov JFM 6 mI25.118 Atherosclerotic heart disease of [place] coronary artery withI10 Essential (primary) tguigcvrbeimD99.00 Pure hypercholesterolemia, sjqbprdjcdeX04.5 Hyperkalemia Functional Status Description No Information Available Mental Status Description No Information Available Referrals Refer to Dr Reason for Referral Status Appt Date Neto Nichols MD Sent 10/16/2018 [address], [address] [place] [id number] [phone]
[2018-11-17 12:28] VITALS: BP 128/54
--- NOTE | 2018-11-17 13:30 | UC ---
Complaint Female HPI - HPI Summary HPI Summary: Per test deskman: "Concerned for UTI. For the past few weeks pt c/o urinary urgency after voiding - still has sensation she needs to void that "sends chills up my body". Denies dysuria. No measured fever. Currently being treated for sore on vulva and uses betamethsone cream .05% as prescribed. Sees Dr. Branham, Urologist, [id number] for check up on bladder cyst (had benign biopsy done in Mar 2018)." - History Of Current Complaint Chief Complaint: UCGU Stated Complaint: URINARY COMPLAINT Time Seen by Provider: 11/17/18 13:01 Hx Last Menstrual Period: 1975 Pain Intensity: 0 - Allergies/Home Medications Allergies/Adverse Reactions: Allergies Allergy/AdvReac Type Severity Reaction Status Date / Time Iodinated Contrast Media Allergy Severe Swelling Verified 11/17/18 12:14 [Iodinated Contrast- Oral Of and IV Dye] Face,Lips,& Throat cephalexin Allergy Intermediate Rash Verified 11/17/18 12:14 iodine Allergy Intermediate Swelling Verified 11/17/18 12:14 nickel Allergy Mild Rash Verified 11/17/18 12:14 adhesive Allergy Rash And Verified 11/17/18 12:14 Itching atorvastatin Allergy See Comment Verified 11/17/18 12:14 gluten AdvReac Abdominal Verified 11/17/18 12:14 Pain sulfamethoxazole AdvReac Palpitation Verified 11/17/18 12:14 [From Bactrim] s trimethoprim [From Bactrim] AdvReac Palpitation Verified 11/17/18 12:14 s Home Medications: Home Medications Rosuvastatin Calcium [Crestor] 20 mg PO BEDTIME 11/17/18 [History Confirmed ] Spironolactone TAB* [Aldactone TAB 25 MG*] 25 mg PO DAILY 11/17/18 [History Confirmed 11/17/18] PMH/Surg Hx/FS Hx/Imm Hx Other History Of: Anticoagulant Therapy - on plavix for stents - Surgical History Surgical History: Yes Surgery Procedure, Year, and Place: stents placed - 06/07/2010 - [facility]: MRI CONDITIONAL ,SPATIAL GRADIENT 1.5T TO 3.0 T : [address] GAUSS/CM, NORMAL MODE; MULTILINK TETRA - CONDITIONAL UP TO 3.0T MAX SPAT.GRAD 3.3T/METER - INFORMATION IS IN PT'S EMR - UNDER "IMPLANT INFORMATION -DATED 03/04/14. New stent placed in February 2018. Lt ankle fx repair, right knee replacement 2015 , hysterectomy 1976, gallbladder removal 1976. gallbladder and hysterectomy 1975,. TOTAL RT KNEE REPLACEMENT 2013. CATARACT. Rt EYE - CORRECTIVE MUSCLE - Family History Known Family History: Positive: Cardiac Disease - Social History Alcohol Use: None Substance Use Type: None Substance Use Comment - Amount & Last Used: for chronic back pain Smoking Status (MU): Never Smoked Tobacco Type: Cigarettes Amount Used/How Often: 1/pack day Length of Time of Smoking/Using Tobacco: 50+ Have You Smoked in the Last Year: No When Did the Patient Quit Smoking/Using Tobacco: 2018 - Immunization History Most Recent Influenza Vaccination: 2017december 04 Most Recent Tetanus Shot: unknown Most Recent Pneumonia Vaccination: 2011 Physical Exam Vital Signs: Initial Vital Signs Temp 97.5 F 11/17/18 12:18 Pulse 54 11/17/18 12:18 Resp 16 11/17/18 12:18 BP 128/54 11/17/18 12:18 Pulse Ox 100 11/17/18 12:18 Discharge ED - Discharge Plan Referrals: Clarissa Brock MD [Primary Care Provider] -
--- NOTE | 2018-11-17 14:02 | UC ---
Complaint Female HPI - HPI Summary HPI Summary: cystoscopy with begin lesion 03/2018---has had multiple episodes of dysuria--- being treated for lichens sclerosis by Rocío Smith---Currently has 2 weeks of urination pain and burning no fevers, flank pain, no blood noted---also is concerned she is developing an abscess left inner thigh - History Of Current Complaint Chief Complaint: UCGU Stated Complaint: URINARY COMPLAINT Time Seen by Provider: 11/17/18 13:01 Hx Obtained From: Patient Hx Last Menstrual Period: 1975 ?: No Onset/Duration: Gradual Onset, Lasting Weeks, Still Present Timing: Constant Severity Initially: Moderate Severity Currently: Moderate Character: Burning Aggravating Factor(s): Urination Alleviating Factor(s): Nothing Associated Signs And Symptoms: Positive: Negative - Allergies/Home Medications Allergies/Adverse Reactions: Allergies Allergy/AdvReac Type Severity Reaction Status Date / Time Iodinated Contrast Media Allergy Severe Swelling Verified 11/17/18 12:14 [Iodinated Contrast- Oral Of and IV Dye] Face,Lips,& Throat cephalexin Allergy Intermediate Rash Verified 11/17/18 12:14 iodine Allergy Intermediate Swelling Verified 11/17/18 12:14 nickel Allergy Mild Rash Verified 11/17/18 12:14 adhesive Allergy Rash And Verified 11/17/18 12:14 Itching atorvastatin Allergy See Comment Verified 11/17/18 12:14 gluten AdvReac Abdominal Verified 11/17/18 12:14 Pain sulfamethoxazole AdvReac Palpitation Verified 11/17/18 12:14 [From Bactrim] s trimethoprim [From Bactrim] AdvReac Palpitation Verified 11/17/18 12:14 s Home Medications: Home Medications Rosuvastatin Calcium [Crestor] 20 mg PO BEDTIME 11/17/18 [History Confirmed ] Spironolactone TAB* [Aldactone TAB 25 MG*] 25 mg PO DAILY 11/17/18 [History Confirmed 11/17/18] PMH/Surg Hx/FS Hx/Imm Hx Previously Healthy: No Endocrine History: Diabetes, Dyslipidemia Cardiovascular History: Cardiac Disease, Hypertension, Myocardial Infarction Other History Of: Anticoagulant Therapy - on plavix for stents - Surgical History Surgical History: Yes Surgery Procedure, Year, and Place: stents placed - 06/07/2010 - [place]: MRI CONDITIONAL ,SPATIAL GRADIENT 1.5T TO 3.0 T : [address]USS/CM, NORMAL MODE; MULTILINK TETRA - CONDITIONAL UP TO 3.0T MAX SPAT.GRAD 3.3T/METER - INFORMATION IS IN PT'S EMR - UNDER "IMPLANT INFORMATION -DATED 03/04/14. New stent placed in February 2018. Lt ankle fx repair, right knee replacement 2015 , hysterectomy 1976, gallbladder removal 1976. gallbladder and hysterectomy 1975,. TOTAL RT KNEE REPLACEMENT 2013. CATARACT. Rt EYE - CORRECTIVE MUSCLE - Family History Known Family History: Positive: Cardiac Disease - Social History Occupation: Retired Lives: Alone Alcohol Use: None Substance Use Type: None Substance Use Comment - Amount & Last Used: for chronic back pain Smoking Status (MU): Never Smoked Tobacco Type: Cigarettes Amount Used/How Often: 1/pack day Length of Time of Smoking/Using Tobacco: 50+ Have You Smoked in the Last Year: No When Did the Patient Quit Smoking/Using Tobacco: 2017 - Immunization History Most Recent Influenza Vaccination: 2017december 04 Most Recent Tetanus Shot: unknown Most Recent Pneumonia Vaccination: 2011 Review of Systems All Other Systems Reviewed And Are Negative: Yes Constitutional: Positive: Negative Skin: Positive: Other - sore on inner left thigh Eyes: Positive: Negative ENT: Positive: Negative Respiratory: Positive: Negative Cardiovascular: Positive: Negative Gastrointestinal: Positive: Negative Genitourinary: Positive: Dysuria, Frequency Motor: Positive: Negative Neurovascular: Positive: Negative Musculoskeletal: Positive: Negative Neurological: Positive: Negative Psychological: Positive: Negative Is Patient Immunocompromised?: No Physical Exam Triage Information Reviewed: Yes Appearance: Well-Appearing, No Pain Distress, Obese Vital Signs: Initial Vital Signs Temp 97.5 F 11/17/18 12:18 Pulse 54 11/17/18 12:18 Resp 16 11/17/18 12:18 BP 128/54 11/17/18 12:18 Pulse Ox 100 11/17/18 12:18 Vital Signs Reviewed: Yes Eye Exam: Normal Eyes: Positive: Conjunctiva Clear ENT Exam: Normal ENT: Positive: Normal ENT inspection, Hearing grossly normal. Negative: Trismus , Muffled voice, Hoarse voice Dental Exam: Normal Neck exam: Normal Neck: Positive: Supple, Nontender Respiratory Exam: Normal Respiratory: Positive: Chest non-tender, No respiratory distress, No accessory muscle use Cardiovascular Exam: Normal Cardiovascular: Positive: RRR, Pulses Normal, Brisk Capillary Refill Abdominal Exam: Normal Abdomen Description: Positive: Nontender, No Organomegaly, Soft. Negative: CVA Tenderness (R), CVA Tenderness (L) Pelvic Exam: Positive: Other - begining of a firm area on left inner thigh Musculoskeletal Exam: Normal Musculoskeletal: Positive: Strength Intact, ROM Intact, No Edema Neurological Exam: Normal Neurological: Positive: Alert, Muscle Tone Normal Psychological Exam: Normal Skin Exam: Normal Complaint Female Dx - Course Course Of Treatment: culture urine---warm compress for inner thigh uses boxer styled under-ca instead of panties, macrobid, pyridium increase fluids follow with rocío Smith in next 7 dAYS - Differential Dx/Diagnosis Provider Diagnosis: Cyst, UTI (urinary tract infection) Discharge ED - Sign-Out/Discharge Documenting (check all that apply): Patient Departure All imaging exams completed and their final reports reviewed: No Studies - Discharge Plan Condition: Stable Disposition: HOME Prescriptions: Nitrofurantoin Monohyd/M-Cryst [Macrobid 100 mg Capsule] 100 mg PO BID #14 cap Phenazopyridine TAB* [Pyridium 100 mg TAB*] 100 mg PO TID #9 tab Patient Education Materials: Phenazopyridine (By mouth), Urinary Tract Infection in Older Adults (ED), Warm Compress or Soak (ED) Referrals: Clarissa Brock MD [Primary Care Provider] - Rocío Smith G[employer] [Nurse Practitioner] - 1 Week - Billing Disposition and Condition Condition: STABLE Disposition: Home
== END 2018-11-17 14:20 | disposition home or self-care (01) ==
LOC: UCCORT 11:16
DX: N39.0 Urinary tract infection, site not specified (principal); L90.0 Lichen sclerosus et atrophicus; L72.9 Follicular cyst of the skin and subcutaneous tissue, unspecified; E11.9 Type 2 diabetes mellitus without complications; E78.5 Hyperlipidemia, unspecified; I25.2 Old myocardial infarction; I10 Essential (primary) hypertension; Z79.01 Long term (current) use of anticoagulants; Z95.5 Presence of coronary angioplasty implant and graft; Z96.651 Presence of right artificial knee joint; Z88.2 Allergy status to sulfonamides; Z88.8 Allergy status to other drugs, medicaments and biological substances; Z88.1 Allergy status to other antibiotic agents; Z91.041 Radiographic dye allergy status; Z87.891 Personal history of nicotine dependence
CPT/HCPCS: 81003; 87077; 87086; 87186; 99212; G0463

== ENCOUNTER 2019-05-13 11:36 | Observation (INO) | payer MEDICARE, BC ==
[2019-05-13] MEDS ORDERED: Clindamycin 600 MG/D5W BAG(*) 600 MG/50 ML BAG IV ONE (13:30)
[2019-05-13] MEDS ORDERED: Diazepam TAB(*) 5 MG ONE (13:41)
[2019-05-13] MEDS ORDERED: Naloxone* 0.4 MG/ML 1 ML VIAL ONE (13:43)
[2019-05-13] MEDS ORDERED: fentaNYL* 50 MCG/ML 2 ML VIAL (100 MCG VIAL) ONE (13:43)
[2019-05-13] MEDS ORDERED: Midazolam* 1 MG/ML 5 ML VIAL (5 MG) ONE (13:43)
[2019-05-13] MEDS ORDERED: Lidocaine 1% INJ* 10 MG/ML 30 ML SDV ONE (13:44)
[2019-05-13] MEDS ORDERED: Flumazenil* 0.1 MG/ML 5 ML MDV ONE (13:44)
[2019-05-13] MEDS ORDERED: oxyCODONE/Acetamin 5/325 MG* TAB PO PRN (15:12)
[2019-05-13] MEDS ORDERED: Acetaminophen TAB* 325 MG PO PRN (15:12)
[2019-05-13] MEDS ORDERED: [UNRECOGNIZED DRUG - OTHER] SUBCUT SCH (16:00)
[2019-05-13] MEDS ORDERED: INSULIN ASPART SUBCUT SCH (16:00)
[2019-05-13] MEDS ORDERED: Pantoprazole TAB * 40 MG TAB PO SCH (18:00)
[2019-05-13] MEDS: Carvedilol TAB* 6.25 MG PO SCH (20:16)
[2019-05-13] MEDS ORDERED: CMCS:Rosuvastatin (NF) 20 MG TAB PO SCH (21:00)
[2019-05-14] MEDS ORDERED: Levothyroxine TAB* 125 MCG TAB PO SCH (06:00)
[2019-05-14] MEDS: Carvedilol TAB* 6.25 MG PO SCH (08:57)
[2019-05-14] MEDS: Ferrous Sulfate TAB* 325 MG PO SCH (08:57)
[2019-05-14] MEDS: Clindamycin CAP* 150 MG PO SCH ×2 (08:57→12:39)
[2019-05-14] MEDS ORDERED: Torsemide TAB* 100 MG PO SCH (09:00)
[2019-05-14] MEDS ORDERED: Nitroglycerin 0.4 MG/HR PATCH* (10 MG) TRANSDERM SCH (09:00)
[2019-05-14] MEDS ORDERED: DULoxetine DR CAP* 30 MG CAP.DR PO SCH (09:00)
[2019-05-14 11:05] VITALS: BP 130/46
--- NOTE | 2019-05-14 14:06 | OP ---
CC: Dr. Canales OPERATIVE REPORT: DATE OF OPERATION: 05/13/19 DATE OF : 44 SURGEON: Frankie Rogers MD ANESTHESIA: Local anesthesia with conscious sedation. PRE-OP DIAGNOSES: 1. Coronary artery disease. 2. Hypertrophic obstructive cardiomyopathy. 3. Bradycardia. 4. Need to increase beta-tonio therapy. POST-OP DIAGNOSES: 1. Coronary artery disease. 2. Hypertrophic obstructive cardiomyopathy. 3. Bradycardia. 4. Need to increase beta-tonio therapy. OPERATIVE PROCEDURE: Dual-chamber pacemaker implantation. ESTIMATED BLOOD LOSS: Nil. COMPLICATIONS: None. INDICATIONS: The patient is a 78-year-old female with a history of coronary artery disease, history of HOCM, who is on appropriate medical therapies; however, despite this, the patient continues to hav e angina with exertion. The patient's resting heart rate is 60 beats per minute and Dr. Canales felt it will be difficult to maximize beta-tonio therapy without pacemaker implantation. Pacemaker was recommended for maximization of medical therapy. DESCRIPTION OF PROCEDURE: The patient was in a fasting state. Informed consent had been obtained pr ior to the procedure. All labs had been reviewed. The patient was placed supine on the procedure ta ble. Her left deltopectoral area was cleaned and draped in the usual fashion. 1% lidocaine was used for local anesthesia. Under ultrasound guidance, the axillary vein was entered via [employer] and a guidewire was placed. A second guidewire was placed in the same technique. A 4 cm incision was made in the pectoral area. Blunt dissection was carried down to the pectoral fascia and a pocket was fashioned for the pacemaker. Over the first guidewire, a 7-Malay sheath introducer was placed through which a right ventricular lead was advanced to the right ventricular septum. It had an imped ance of 1130 ohms, threshold 0.9 volts at 0.5 milliseconds, R-wave sensitivity 15.8. The ventricular lead was sutured to the pectoral fascia. Over the second guidewire, a 7-Malay sheath introducer was placed through which a right atrial lead was advanced to the high right atrium. The right atrial le ad is a [employer] model 5076, serial number [id number]. It had a P-wave sensitivity of 2.5, impedanc e 621 ohms, threshold 0.9 volts at 0.5 milliseconds. The atrial lead was sutured to the pectoral fas riley. The pocket was flushed. A pacemaker was attached appropriately to the atrial and ventricular l darci. The pacemaker is a Medtronic model W1DR01, serial number [id number]. The device was placed in the pocket. The surgical incision was closed in 3 layers. [id number]/[facility] #: [id number]
--- NOTE | 2019-05-15 03:35 | DS ---
CC: Dr. Brock; Dr. Canales * DISCHARGE SUMMARY: DATE OF ADMISSION: 05/13/19 DATE OF DISCHARGE: 05/14/19 INDICATION FOR ADMISSION: Dual-chamber pacemaker implantation. PREOP DIAGNOSES: 1. Bradycardia. 2. Hypertrophic obstructive cardiomyopathy. 3. Angina. HISTORY OF PRESENT ILLNESS: Please see my admission history and physical for details of the patient's presentation. The patient has a history of coronary artery disease, hypertrophic cardiomyopathy. The patient has been on maximal medical therapy. Despite that, the patient continues to have angina. The patient is under maximum dose of Coreg because of her bradycardia. Dr. Canales had requested permanent pacemaker implantation for maximization of medical therapy. SUMMARY OF HOSPITAL COURSE: The patient was brought to the procedure room. She underwent a dual-chamber pacemaker implantation. She has a Medtronic, model W1DR01. Implantation went without difficulty. The patient tolerated the procedure well. The patient had a small hematoma after the procedure. A pressure dressing was applied overnight. This morning, the patient has no complaints. PHYSICAL EXAMINATION: Temperature 98.2, heart rate of 66, blood pressure 143/44 , respiratory rate of 16, oxygen saturation 94% on room air. Cardiac: S1, S2, without any murmurs, rubs, or gallops. Lungs are clear to auscultation. There is no dullness to percussion. Extremities showed no edema. The patient is awake , alert, and oriented. She moves all 4 extremities equally. Her pacemaker site is stable. There is mild ecchymosis. There is no hematoma. There is no erythema. A new dressing was applied. DISPOSITION: The patient will be discharged home. CONDITION ON DISCHARGE: Stable. DISCHARGE MEDICATIONS: The current medications are: 1. Crestor 5 mg a day. 2. Torsemide 100 mg a day. 3. Ranexa 1000 mg b.i.d. 4. Nitroglycerin patch 0.4 mg on in the morning, off at night. 5. Pantoprazole 40 mg a day. 6. Irbesartan 75 mg a day. 7. Tramadol as needed. 8. Coreg 6.25 mg 2 tablets in the morning, 1 tablet at night. 9. Cymbalta 30 mg a day. 10. Aspirin 81 mg a day. 11. Ativan 0.5 mg as needed. 12. Plavix 75 mg a day. 13. Levothyroxine 125 mcg a day. 14. Iron sulfate 325 one tablet a day. 15. Insulin as directed. The patient will go home on clindamycin 150 mg 3 times a day for 3 days. ALLERGIES: To KEFLEX, IODINE, CONTRAST DYE, NICKEL, LIPITOR, VANCOMYCIN. FOLLOWUP: The patient will have a followup appointment in 1 week. She will be seen by Millie Luis, her nurse practitioner at the [facility]. [id number]/[facility] #: [id number] MTDD
== END 2019-05-14 13:25 | disposition home or self-care (01) ==
LOC: CHICATH 11:36 → MEDTELE 15:12
PROVIDERS: ADMIT Specialist; ATTEND Specialist
DX: R00.1 Bradycardia, unspecified (principal); I42.1 Obstructive hypertrophic cardiomyopathy; I25.119 Atherosclerotic heart disease of native coronary artery with unspecified angina pectoris; I44.7 Left bundle-branch block, unspecified; E78.5 Hyperlipidemia, unspecified; E11.9 Type 2 diabetes mellitus without complications; E11.21 Type 2 diabetes mellitus with diabetic nephropathy; Z79.4 Long term (current) use of insulin; Z96.41 Presence of insulin pump (external) (internal); Z87.891 Personal history of nicotine dependence; F41.9 Anxiety disorder, unspecified; E66.01 Morbid (severe) obesity due to excess calories; E78.00 Pure hypercholesterolemia, unspecified; K21.9 Gastro-esophageal reflux disease without esophagitis; E03.9 Hypothyroidism, unspecified; K90.0 Celiac disease; Z98.61 Coronary angioplasty status; Z79.899 Other long term (current) drug therapy; Z79.51 Long term (current) use of inhaled steroids; Z88.1 Allergy status to other antibiotic agents; Z88.8 Allergy status to other drugs, medicaments and biological substances
CPT/HCPCS: 33208; 71045; 71046; 93005; 99156; 99157; A9270-GY; C1785; C1892; C1898; G0378; J2250; J2310; J3010

== ENCOUNTER 2022-07-26 11:13 | Observation (INO) ==
[2022-07-26 11:50] LABS: ABS Eosinophils 0.3 10^3/uL (0.0-0.5); ABS Lymphocytes 1.2 10^3/uL (1.0-4.8); ABS Monocytes 0.9 10^3/uL (0.0-0.9); ABS Neutrophils 9.3 10^3/uL (1.5-7.6); Eosinophil % 2.8 %; Hematocrit 33.2 % (35-45); Hemoglobin 10.7 g/dL (11.5-14.3); Lymphocyte % 10.1 %; Mean Corpuscular Hemoglobin 25.3 pg (27-33); Mean Corpuscular Hgb Conc 32.2 g/dL (31-36); Mean Corpuscular Volume 78.6 fL (80-97); Mean Platelet Volume 8.2 fL (7.5-11.2); Platelet Count 319 10^3/uL (150-450); Red Blood Count 4.22 10^6/uL (3.63-4.92); Red Cell Distribution Width 16.1 % (12-17); White Blood Count 11.7 10^3/uL (3.8-11.8)
[2022-07-26 11:59] LABS: INR 1.98 (0.88-1.18)
[2022-07-26] MEDS ORDERED: Furosemide 40 mg/4 ml IV VIAL IV ONE (12:09)
[2022-07-26 13:00] LABS: Creatinine, Serum 0.97 mg/dL (0.51-0.95); Potassium 3.7 mmol/L (3.5-5.0)
[2022-07-26 13:01] LABS: Albumin 3.8 g/dL (3.2-5.2); Albumin/Globulin Ratio 1.7 (1-3); Calcium 8.8 mg/dL (8.6-10.3); Globulin 2.3 g/dL (2-4); Total Bilirubin 1.4 mg/dL (0.2-1.0); Total Protein 6.1 g/dL (6.4-8.9); eGFR CKD-EPI 59.4 (>60)
[2022-07-26 13:22] LABS: High Sensitivity Troponin 1 Hr 24 pg/mL (<15)
[2022-07-26] MEDS ORDERED: Dextrose 50% Syringe 50 ml 25 GM/50 ML SYRINGE IV PUSH PRN (17:32)
[2022-07-26] MEDS: Polyethylene Glycol 3350 17 GM PACKET PO SCH (21:19)
[2022-07-27 05:54] LABS: ABS Basophils 0.1 10^3/uL (0.0-0.1); ABS Eosinophils 0.4 10^3/uL (0.0-0.5); ABS Lymphocytes 1.2 10^3/uL (1.0-4.8); ABS Monocytes 0.9 10^3/uL (0.0-0.9); ABS Neutrophils 7.9 10^3/uL (1.5-7.6); ABS Nucleated RBC 0.01 10^3/ul; Eosinophil % 3.7 %; Hematocrit 30.2 % (35-45); Hemoglobin 10.1 g/dL (11.5-14.3); Lymphocyte % 11.8 %; Mean Corpuscular Hemoglobin 25.6 pg (27-33); Mean Corpuscular Hgb Conc 33.4 g/dL (31-36); Mean Corpuscular Volume 76.6 fL (80-97); Mean Platelet Volume 7.8 fL (7.5-11.2); Nucleated Red Blood Cells % 0.1 /100 WBC (0.0-0.4); Platelet Count 290 10^3/uL (150-450); Red Blood Count 3.94 10^6/uL (3.63-4.92); Red Cell Distribution Width 16.1 % (12-17); White Blood Count 10.5 10^3/uL (3.8-11.8)
[2022-07-27] MEDS ORDERED: Prochlorperazine 5 mg/ml 2 ml VIAL (10 mg) IV ONE (05:55)
[2022-07-27 06:35] LABS: Calcium 8.7 mg/dL (8.6-10.3); Creatinine, Serum 0.97 mg/dL (0.51-0.95); Magnesium 1.8 mg/dL (1.9-2.7); Potassium 3.4 mmol/L (3.5-5.0); eGFR CKD-EPI 59.4 (>60)
[2022-07-27] MEDS ORDERED: Potassium EFFERVES 25 meq TAB PO ONE (07:15)
[2022-07-27] MEDS: DULoxetine DR 60 mg CAP PO SCH (07:42)
[2022-07-27] MEDS: Polyethylene Glycol 3350 17 GM PACKET PO SCH ×2 (07:43→20:04)
[2022-07-27] MEDS ORDERED: Sulfur Hexaflouride MICROSPHR 25 MG VIAL ONE (09:27)
[2022-07-27] MEDS: Furosemide 40 mg/4 ml IV VIAL IV SLOW PU SCH (10:29)
[2022-07-27] MEDS: KCL 10 MEQ/50 ML IVPREMIX 10 MEQ/50 ML BAG IV SCH ×3 (10:29→16:55)
[2022-07-27 14:02] LABS: TSH Ultra Thyroid Stim Horm 2.43 mcIU/mL (0.34-5.60)
[2022-07-28 06:29] LABS: ABS Basophils 0.1 10^3/uL (0.0-0.1); ABS Eosinophils 0.5 10^3/uL (0.0-0.5); ABS Lymphocytes 1.1 10^3/uL (1.0-4.8); ABS Monocytes 1.1 10^3/uL (0.0-0.9); ABS Neutrophils 8.4 10^3/uL (1.5-7.6); Eosinophil % 4.1 %; Hemoglobin 10.4 g/dL (11.5-14.3); Lymphocyte % 9.7 %; Mean Corpuscular Hemoglobin 24.8 pg (27-33); Mean Corpuscular Hgb Conc 32.4 g/dL (31-36); Mean Corpuscular Volume 76.7 fL (80-97); Mean Platelet Volume 8.3 fL (7.5-11.2); Platelet Count 310 10^3/uL (150-450); Red Blood Count 4.17 10^6/uL (3.63-4.92); White Blood Count 11.1 10^3/uL (3.8-11.8)
[2022-07-28 06:50] LABS: Calcium 8.8 mg/dL (8.6-10.3); Creatinine, Serum 1.11 mg/dL (0.51-0.95); Potassium 3.9 mmol/L (3.5-5.0); eGFR CKD-EPI 50.6 (>60)
[2022-07-28] MEDS: Furosemide 40 mg/4 ml IV VIAL IV SLOW PU SCH (09:27)
[2022-07-28] MEDS: Polyethylene Glycol 3350 17 GM PACKET PO SCH (09:28)
[2022-07-28] MEDS: DULoxetine DR 60 mg CAP PO SCH (09:28)
[2022-07-28 10:47] VITALS: BP 127/47
== END 2022-07-28 13:17 | disposition home or self-care (01) ==
LOC: EDHOLD 11:13 → ED 11:13 → SUATTDRO 17:07 → MEDTELE 20:47
PROVIDERS: ADMIT Internal Medicine; ATTEND Student in an Organized Health Care Education/Training Program